=== PATIENT | male | born 1955 | race Two or more races ===

== ENCOUNTER 2017-09-19 15:13 | Inpatient (IN) | payer BC ==
--- NOTE | 2017-09-19 15:52 | C.PDOC ---
History Of Present Illness 62 year old male with PMHx of diabetes presents to the ER, referred by PMD for bilateral foot infections worsening since 8 days ago. Patient states he walked on the pavement barefoot, subsequently burning the bottom of both feet. He describes persistent open wounds to both feet. Now reports new-onset redness over the top of the feet and ascending the lower legs, right greater than left. Otherwise denies fever, chills, changes in sensation, weakness, nausea, or vomiting. Time Seen by Provider: 09/19/17 15:42 Chief Complaint (Nursing): Lower Extremity Problem/Injury History Per: Patient History/Exam Limitations: no limitations Onset/Duration Of Symptoms: Days Current Symptoms Are (Timing): Still Present Past Medical History Reviewed: Historical Data, Nursing Documentation, Vital Signs Vital Signs: Last Vital Signs Temp 98.0 F 09/19/17 15:21 Pulse 100 H 09/19/17 15:21 Resp 18 09/19/17 15:21 BP Pulse Ox 100 09/19/17 16:31 - Medical History PMH: Diabetes, Chronic Kidney Disease (on dialysis MWF) Surgical History: CABG, Pacemaker Family History: States: No Known Family Hx - Social History Hx Alcohol Use: No Hx Substance Use: No Review Of Systems Except As Marked, All Systems Reviewed And Found Negative. Constitutional: Negative for: Fever, Chills Gastrointestinal: Negative for: Nausea, Vomiting Musculoskeletal: Positive for: Foot Pain, Other (redness to b/l lower legs and feet) Skin: Positive for: Lesions (open wounds to b/l feet) Neurological: Negative for: Weakness, Numbness Physical Exam - Physical Exam Appears: Non-toxic, No Acute Distress Skin: Warm, Dry Head: Atraumatic, Normacephalic Eye(s): bilateral: Normal Inspection, PERRL, EOMI Nose: Normal Oral Mucosa: Moist Neck: Normal ROM, Supple Chest: Symmetrical, No Deformity Cardiovascular: Rhythm Regular, No Murmur Respiratory: Normal Breath Sounds, No Accessory Muscle Use, Other (NARD) Gastrointestinal/Abdominal: Soft, No Tenderness Back: Normal Inspection Extremity: Normal ROM, Capillary Refill (< 2sec), Other (ascending cellulitis with lymphangitis to bilateral lower legs, right > left; soles of bilateral feet with open wounds and scabs) Pulses: Left Dorsalis Pedis: Normal, Right Dorsalis Pedis: Normal Neurological/Psych: Oriented x3, Normal Speech, Normal Cranial Nerves, Normal Motor, Normal Sensation ED Course And Treatment - Laboratory Results Result Diagrams: 09/19/17 16:01 09/19/17 16:01 ECG: Interpreted By Me, Viewed By Me ECG Rhythm: Sinus Rhythm, R BBB, PVC Rate From EC O2 Sat by Pulse Oximetry: 100 (RA) Pulse Ox Interpretation: Normal - Other Rad B/L FOOT X-RAY X-Ray: Viewed By Me, Read By Radiologist Interpretation: Accession No. : [id number]. Patient Name / ID : JENNIFER Waldron / [id number]. Exam Date : 09/19/2017 16:25:02 ( Approved ). Study Comment : Sex / Age : M / 62Y. Creator : Guille Fuentes MD. Dictator : Guille Fuentes MD. Assistant Signal Maintainer : Senior Grants Officer : Guille Fuentes MD. Approver2 : Report Date : 09/19/2017 16:54:30. My Comment : . Date of service: 09/19/2017. PROCEDURE: Bilateral Feet Radiographs. HISTORY: CELLULITIS RO FA. COMPARISON: None. FINDINGS: BONES: Right Foot: No acute fracture. Hallux valgus deformity. Left Foot: No acute fracture. Hallux valgus deformity. JOINTS: Right Foot: Unremarkable. Left Foot: Unremarkable. SOFT TISSUES: Right Foot: Trace Achilles enthesophyte. Left Foot: Trace Achilles enthesophyte. OTHER FINDINGS: None. IMPRESSION: No demonstrated fracture or dislocation. CHEST X-RAY X-Ray: Viewed By Me, Read By Radiologist Interpretation: Accession No. : [id number]. Patient Name / ID : JENNIFER ROSAS / [id number]. Exam Date : 09/19/2017 16:30:51 ( Approved ). Study Comment : Sex / Age : M / 62Y. Creator : Guille Fuentes MD. Dictator : Guille Fuentes MD. Assistant Signal Maintainer : Senior Grants Officer : Guille Fuentes MD. Approver2 : Report Date : 09/19/2017 16:55:25. My Comment : . Date of service: 09/19/2017. PROCEDURE: CHEST RADIOGRAPH, 1 VIEW. HISTORY: MED CLEAR. COMPARISON: None available. FINDINGS: LUNGS: Clear. PLEURA: No pneumothorax or pleural fluid seen. CARDIOVASCULAR: Left subclavian access pacemaker. Prior sternotomy with sternal wires and surgical clips redemonstrated. Atherosclerotic aortic calcifications. Cardiomediastinal silhouette at the upper limits of normal in size. OSSEOUS STRUCTURES: Degenerative changes no. VISUALIZED UPPER ABDOMEN: Normal. OTHER FINDINGS: Right internal jugular access tunneled hemodialysis catheter with tips in the upper right atrium. IMPRESSION: No active disease. Progress - Re-Evaluation Re-evaluation Note: 09/19/17 16:01 Discussed w/ podiatry resident, who will evaluate patient in the ER. 09/19/17 16:30 D/W DR Nkechi RAM C/F PMD WILL ADMIT - Data Reviewed Data Reviewed: Lab, Diagnostic imaging, EKG, Old records Medical Decision Making Medical Decision Making: Initial Impression: Bilateral cellulitis Time: 15:52 Initial Plan: --EKG --VBG --Blood work --Chest x-ray --B/L Foot x-ray --IV Vanco and Ancef --30mg IV Toradol Disposition Counseled Patient/Family Regarding: Studies Performed, Diagnosis - Disposition Disposition: HOSPITALIZED Disposition Time: 16:30 Condition: STABLE - POA Present On Arrival: Poor Glycemic Control - Clinical Impression Clinical Impression: Burn, foot, second degree, Cellulitis - Scribe Statement The provider has reviewed the documentation as recorded by the Scribe (Arianne Kaiser) Provider Attestation: All medical record entries made by the Scribe were at my direction and personally dictated by me. I have reviewed the chart and agree that the record accurately reflects my personal performance of the history, physical exam, medical decision making, and the department course for this patient. I have also personally directed, reviewed, and agree with the discharge instructions and disposition. Decision To Admit - Pt Status Changed To: Hospital Disposition Of: Inpatient - Admit Certification Admit to Inpatient:: After my assessment, the patient will require hospitalization for at least two midnights. This is because of the severity of symptoms shown, intensity of services needed, and/or the medical risk in this patient being treated as an outpatient. - InPatient: Physician Admission Certification: I certify that this patient requires 2 or more midnights of care for the following reason:: SEE NOTE - . Bed Request Type: Regular Admitting Physician: Miguel Ram Patient Diagnosis: Burn, foot, second degree, Cellulitis
[2017-09-19] MEDS ORDERED: Vancomycin 1 gm/NS 200 ml 1 GM/200 ML BAG IVPB STA (16:10)
[2017-09-19 16:12] LABS: EOS # 0.1 K/uL (0.0-0.7); HEMOGLOBIN 11.5 g/dL (12.0-18.0); MONO # 0.6 K/uL (0.0-0.8); RBC 3.94 Mil/uL (4.40-5.90)
[2017-09-19 16:18] LABS: BASO % 0.4 % (0.0-2.0); EOS % 1.5 % (0.0-4.0); LYMPH # 0.8 K/uL (1.0-4.3); LYMPH % 9.5 % (20.0-40.0); MEAN CELL VOLUME 85.4 fL (80.0-94.0); MEAN CORPUSCULAR HEMOGLOBIN 29.3 pg (27.0-31.0); MEAN CORPUSCULAR HGB CONC 34.3 g/dL (33.0-37.0); MEAN PLATELET VOLUME 8.3 fL (7.2-11.7); MONO % 7.7 % (0.0-10.0); NEUT # 6.5 K/uL (1.8-7.0); NEUT % 80.9 % (50.0-75.0); NRBC % 0.2 % (0.0-2.0); RED CELL DISTRIBUTION WIDTH 15.8 % (11.5-14.5); WHITE BLOOD COUNT 8.1 K/uL (4.8-10.8)
[2017-09-19] MEDS ORDERED: ceFAZolin IV 1 gm in Dextrose 1 GM/50 ML BAG IVPB STA (16:20)
[2017-09-19 16:21] LABS: PLATELET COUNT 124 K/uL (130-400)
[2017-09-19 16:24] LABS: VENOUS BLOOD GAS BASE EXCESS 6.2 mmol/L (0.0-2.0); VENOUS BLOOD GAS PCO2 42 mmHg (40-60); VENOUS BLOOD GAS PO2 34 mm/Hg (30-55); VENOUS BLOOD PH 7.47 (7.32-7.43)
--- NOTE | 2017-09-19 16:56 | RAD ---
Date of service: 09/19/2017 PROCEDURE: Bilateral Feet Radiographs. HISTORY: CELLULITIS RO FA COMPARISON: None. FINDINGS: BONES: Right Foot: No acute fracture. Hallux valgus deformity. Left Foot: No acute fracture. Hallux valgus deformity. JOINTS: Right Foot: Unremarkable. Left Foot: Unremarkable. SOFT TISSUES: Right Foot: Trace Achilles enthesophyte. Left Foot: Trace Achilles enthesophyte. OTHER FINDINGS: None. IMPRESSION: No demonstrated fracture or dislocation.
--- NOTE | 2017-09-19 16:57 | RAD ---
Date of service: 09/19/2017 PROCEDURE: CHEST RADIOGRAPH, 1 VIEW HISTORY: MED CLEAR COMPARISON: None available. FINDINGS: LUNGS: Clear. PLEURA: No pneumothorax or pleural fluid seen. CARDIOVASCULAR: Left subclavian access pacemaker. Prior sternotomy with sternal wires and surgical clips redemonstrated. Atherosclerotic aortic calcifications. Cardiomediastinal silhouette at the upper limits of normal in size. OSSEOUS STRUCTURES: Degenerative changes no. VISUALIZED UPPER ABDOMEN: Normal. OTHER FINDINGS: Right internal jugular access tunneled hemodialysis catheter with tips in the upper right atrium. IMPRESSION: No active disease.
[2017-09-19 17:22] LABS: EOSINOPHIL 1 % (0-4); LYMPHOCYTE 10 % (20-40); MONOCYTE 4 % (0-10); NEUTROPHIL 85 % (50-75); PLATELET ESTIMATE SLIGHTLY DECREASED (NORMAL); TOTAL CELLS COUNTED 100
[2017-09-19 17:25] LABS: ANISOCYTOSIS SLIGHT; HYPOCHROMIC SLIGHT; POIKILOCYTOSIS SLIGHT
--- NOTE | 2017-09-19 17:30 | CP.PCM.CON ---
History of Present Illness - History of Present Illness History of Present Illness: Podiatry Consult Note: Dr. Pierce 62 year old male with PMHx of diabetes was seen and evaluated for bilateral foot infections worsening since 8 days ago after walking on hot pavement barefoot and obtaining guerrero to the bottom of both feet. Patient is seen with at bedside. Patient states that he had been dressing the wound with bacitracin and keeping them covered since the injury. Reports that he noticed his leg (R>L) getting red and extending towards the knee which started overnight. Patient denies of any drainage or malodor from the feet. Patient denies of having recent F/N/V/C/SOB/CP/headache. Patient denies of any pain to bilateral lower extremities. Patient denies of any other pedal complains at this time. Denies of any other medical treatment prior to coming to the ED. PMHx: DM, HTN, hyperlipidemia, CKD PSHx: Pacemaker, bypass Allergies: N.K.D.A SHx: 1/3 a pack a day smoking, denies EtOH or illicit drug usage Review of Systems - Constitutional Constitutional: As Per HPI Past Patient History - Past Social History Smoking Status: Heavy Smoker > 10 Cigarettes Daily - CARDIAC Hx Pacemaker: Yes - RENAL Hx Chronic Kidney Disease: Yes (on dialysis MWF) - ENDOCRINE/METABOLIC Hx Diabetes Mellitus Type 2: Yes - PSYCHIATRIC Hx Substance Use: No - SURGICAL HISTORY Hx Coronary Artery Bypass Graft: Yes - ANESTHESIA Hx Anesthesia: Yes Hx Anesthesia Reactions: No Meds Allergies/Adverse Reactions: Allergies Allergy/AdvReac Type Severity Reaction Status Date / Time No Known Allergies Allergy Unverified 09/19/17 15:24 - Medications Medications: Current Medications Vancomycin/Sodium Chloride (Vancomycin 1 Gm/Ns 200 Ml) 1 gm in 200 mls @ 133.333 mls/hr IVPB STAT STA PRN Reason: Protocol Stop: 09/19/17 17:39 Last Admin: 09/19/17 17:00 Dose: 133.333 mls/hr Physical Exam - Constitutional Appears: Well, Non-toxic, No Acute Distress - Extremities Exam Additional comments: Bilateral LE exam VASC: DP/PT pulses are very faintly palpable 1/4, Cap refill time: < 3 sec to all digits, Temp gradient: warm to fairly warm from proximal to distal (R>L), no pitting or non-pitting edema noted DERM: Superficial epidermal lysis with healthy grannular tissue on the wound bed noted on the plantar forefoot at the ball of the foot, erythema which extends from the dorsum of the foot proximally towards the knee joint with streaks (R>L), no active drainage, no malodor, no probe to bone, no tunneling or tracking NEURO: Protective sensation mildly diminished ORTHO: no pain on palpation of the wounds - Neurological Exam Neurological exam: Alert, Oriented x3 - Psychiatric Exam Psychiatric exam: Normal Affect, Normal Mood Results - Vital Signs Recent Vital Signs: Last Vital Signs Temp 98.0 F 09/19/17 15:21 Pulse 100 H 09/19/17 15:21 Resp 18 09/19/17 15:21 BP Pulse Ox 100 09/19/17 17:09 - Labs Result Diagrams: 09/19/17 16:01 09/19/17 16:01 Labs: Laboratory Results - last 24 hr 09/19/17 09/19/17 09/19/17 16:01 16:01 16:20 WBC 8.1 RBC 3.94 L Hgb 11.5 L Hct 33.7 L MCV 85.4 MCH 29.3 MCHC 34.3 RDW 15.8 H Plt Count 124 L MPV 8.3 Neut % (Auto) 80.9 H Lymph % (Auto) 9.5 L [place] % (Auto) 7.7 Eos % (Auto) 1.5 Baso % (Auto) 0.4 Neut # (Auto) 6.5 Lymph # (Auto) 0.8 L [place] # (Auto) 0.6 Eos # (Auto) 0.1 Baso # (Auto) 0.0 pO2 34 VBG pH 7.47 H VBG pCO2 42 VBG HCO3 29.0 VBG Total CO2 31.9 H VBG O2 Sat (Calc) 78.3 H VBG Base Excess 6.2 H VBG Potassium 3.4 L Glucose 236 H Lactate 1.8 FiO2 21.0 Sodium 139 137.0 Potassium 3.6 Chloride 96 L 102.0 Carbon Dioxide 29 Anion Gap 18 BUN 17 Creatinine 2.5 H Est GFR ( Amer) 32 Est GFR (Non-Af Amer) 26 Random Glucose 247 H Calcium 9.0 Venous Blood Potassium 3.4 L Assessment & Plan - Assessment and Plan (Free Text) Assessment: 62 year old male was evaluated for 1). plantar forefoot wound secondary to second degree burn 2). Cellulitis Plan: Patient seen and evaluated Discussed patient in details with attending Dr. Pierce Labs, vitals and charts reviewed - afebrile, no leukocytosis X-rays of the foot reviewed - no acute concern for OM Burn wounds cleaned with saline and cultures taken from left and right Dressing applied using DSD IV abx while in ED Silvadine ordered ID consult - Dr. Frazier Podiatry to perform local wound care Thank you for the podiatry consult and allowing to take part in patient care Podiatry to follow patient while in-house - Date & Time Date: 09/19/17 Time: 17:42
--- NOTE | 2017-09-19 18:15 | CP.PCM.HP ---
History of Present Illness - History of Present Illness History of Present Illness: CC "burned soles of feet, red and painful" HPI: Patient is a 62 year old male with history of diabetes, chronic kidney disease - on hemodialysis MWF, coronary artery disease, hx of HI - 19 years ago at age 43 who presents for redness and pain at the soles of his feet after he burned them while walking on hot pavement at [facility] 8 days ago. He states he was only on the hot pavement for a few steps from the pool to the umbrella. He state that he didn't experience any pain immediately after, however experienced some burning 5 to 6 hours later. Fabiola at bedside stated she saw white skin hanging loose, which she removed and treated with Bacitracin and hydrogen peroxide. Stated that his pain worsened to a 12/10 yesterday and he woke up in the middle of his sleep from the pain. Patient denies prior issues with feet, prior infections on feet. He currently stated that his feet feel painful with redness going up both his legs. Patient received Vancomycin 1g IV while in ED. He denies fevers, chills, diaphoresis, weakness, headache, dizziness, lightheadedness, changes in vision, changes in hearing, sore throat, dysphagia, chest pain, palpitations, shortness of breath, cough, abdominal pain , nausea, vomiting, diarrhea, constipation, dysuria, back pain, recent travel, recent sickness, sick contacts, changes in weight or appetite. PMH: DM, CKD on HD (MWF), CAD, hx of HI 19 years ago PSH: permacath, pacemaker, CABG Family hx: Brother of HI at age 35. Brother of hyperlipidemia and HI at age 60. Mother has history of DM and cardiac disease. Father hx of HI - in 80s. No history of stroke or cancer in family Social hx: Smokes 1/3 ppd x47 years (From age [age]). Denies hx of ETOH or illict drug use. Currently lives with and son. 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 Ortiz Nephrology: Dr. Gibson Security Researcher: Dr. Disla Pulmonology: Dr. Enrique Code status: full code Healthcare proxy: Fabiola [phone] Present on Admission - Present on Admission Any Indicators Present on Admission: No Review of Systems - Constitutional Constitutional: absent: Chills, Fatigue, Fever - EENT Eyes: absent: Change in Vision, Loss of Vision - Cardiovascular Cardiovascular: absent: Chest Pain, Dyspnea, Palpitations - Respiratory Respiratory: absent: Cough, Dyspnea - Gastrointestinal Gastrointestinal: absent: Abdominal Pain, Constipation, Diarrhea, Nausea - Musculoskeletal Musculoskeletal: absent: Back Pain, Neck Pain - Neurological Neurological: absent: Abnormal Movements, Dizziness, Paresthesias Past Patient History - Past Social History Smoking Status: Heavy Smoker > 10 Cigarettes Daily - CARDIAC Hx Pacemaker: Yes - RENAL Hx Chronic Kidney Disease: Yes (on dialysis MWF) - ENDOCRINE/METABOLIC Hx Diabetes Mellitus Type 2: Yes - PSYCHIATRIC Hx Substance Use: No - SURGICAL HISTORY Hx Coronary Artery Bypass Graft: Yes - ANESTHESIA Hx Anesthesia: Yes Hx Anesthesia Reactions: No Meds Allergies/Adverse Reactions: Allergies Allergy/AdvReac Type Severity Reaction Status Date / Time No Known Allergies Allergy Unverified 09/19/17 15:24 Physical Exam - Constitutional Appears: Well, No Acute Distress - Head Exam Head Exam: ATRAUMATIC, NORMOCEPHALIC - Eye Exam Eye Exam: EOMI - ENT Exam ENT Exam: Mucous Membranes Moist - Neck Exam Neck exam: Positive for: Full Rom. Negative for: Tenderness, Thyromegaly - Respiratory Exam Respiratory Exam: Clear to Auscultation Bilateral, NORMAL BREATHING PATTERN. absent: Rales, Rhonchi, Wheezes Additional comments: right anterior chest permacath - Cardiovascular Exam Cardiovascular Exam: REGULAR RHYTHM, +S1, +S2 Additional comments: Pacemaker - GI/Abdominal Exam GI & Abdominal Exam: Normal Bowel Sounds, Soft. absent: Distended, Firm, Guarding, Rebound, Tenderness - Extremities Exam Extremities exam: Positive for: tenderness, pedal pulses present. Negative for : calf tenderness, pedal edema Additional comments: Bilateral lower extremity erythema, warmth and tenderness. Erythema does not resolve with leg elevation. Top layer of skin with subcutaneous fat on plantar aspect of feet bilaterally extending from metatarsal head to half of the distance of metatarsal bilaterally. On left lower extremity: erythematous streaking extending from dorsum of left foot to medial malleolus On right lower extremity: erythematous streaking extending from dorsum to mid anterior tibia Outlined in black marker Pedal pulses present. Decreased sensation of bilateral 1st and 2nd toes bilaterally - Neurological Exam Neurological exam: Alert, CN II-XII Intact, Oriented x3 Results - Vital Signs Recent Vital Signs: Last Vital Signs Temp 98.0 F 09/19/17 15:21 Pulse 100 H 09/19/17 15:21 Resp 18 09/19/17 15:21 BP Pulse Ox 100 09/19/17 17:09 - Labs Result Diagrams: 09/19/17 16:01 09/19/17 16:01 Labs: Laboratory Results - last 24 hr 09/19/17 09/19/17 09/19/17 16:01 16:01 16:20 WBC 8.1 RBC 3.94 L Hgb 11.5 L Hct 33.7 L MCV 85.4 MCH 29.3 MCHC 34.3 RDW 15.8 H Plt Count 124 L MPV 8.3 Neut % (Auto) 80.9 H Lymph % (Auto) 9.5 L [place] % (Auto) 7.7 Eos % (Auto) 1.5 Baso % (Auto) 0.4 Neut # (Auto) 6.5 Lymph # (Auto) 0.8 L [place] # (Auto) 0.6 Eos # (Auto) 0.1 Baso # (Auto) 0.0 Neutrophils % (Manual) 85 H Lymphocytes % (Manual) 10 L Monocytes % (Manual) 4 Eosinophils % (Manual) 1 Platelet Estimate Slightly decreased L Hypochromasia (manual) Slight Poikilocytosis (manual Slight Anisocytosis (manual) Slight pO2 34 VBG pH 7.47 H VBG pCO2 42 VBG HCO3 29.0 VBG Total CO2 31.9 H VBG O2 Sat (Calc) 78.3 H VBG Base Excess 6.2 H VBG Potassium 3.4 L Glucose 236 H Lactate 1.8 FiO2 21.0 Sodium 139 137.0 Potassium 3.6 Chloride 96 L 102.0 Carbon Dioxide 29 Anion Gap 18 BUN 17 Creatinine 2.5 H Est GFR ( Amer) 32 Est GFR (Non-Af Amer) 26 Random Glucose 247 H Calcium 9.0 Venous Blood Potassium 3.4 L Assessment & Plan - Assessment and Plan (Free Text) Plan: Assessment/plan Bilateral lower leg cellulitis IN ED: Vancomycin 1g IV, Ancef 1g IV Follow up on blood cultures ID Dr. Frazier consulted, help appreciated Podiatry Dr. Pierce consulted, help appreciated Ceftriaxone 1g IV starting 09/20/17 Bilateral feet pedal surface guerrero, 3rd degree Consider silver sulfadiazine Wound care nurse consult Hx of CAD s/p CABG and pacemaker Crestor 20mg PO daily Coreg 3.125mg PO BID ASA 81mg PO daily Plavix 75mg PO daily Entresto ESRD on HD via right chest permacath HD at [facility] Calcium acetate [address] uQevedo consulted, help appreciated Hx of DM, type 2 Tradjenta 5mg PO daily ( asked to bring in) Glipizide 10mg PO daily Hypoglycemic protocol Low dose ISS Follow up: A1C Hx of HTN Coreg 3.125mg PO BID Anemia likely secondary to chronic disease, ESRD Monitor H/H Hx of gout Uloric 40mg PO once daily Hx of depression Paroxetine 10mg PO once daily BPH Flomax 0.4mg PO daily Prophylaxis Heparin 5000 units SC Q12 SCDs contraindicated secondary to cellulitis Florastor 250mg PO twice daily Heart healthy 2g Na low carb diet Camacho Aguilar, PGYI Case discussed with Dr. Miguel Ram
[2017-09-19] MEDS ORDERED: Dextrose 50% SYRINGE Inj (50 ml) IV PRN (20:29)
[2017-09-19] MEDS ORDERED: Glucagon Recombinant 1 mg Inj IM PRN (20:29)
[2017-09-19] MEDS: (Novolin R) Insulin Human Regular 100 units/ml vial SC SCH (21:55)
--- NOTE | 2017-09-20 01:49 | CP.PCM.CON ---
History of Present Illness - History of Present Illness History of Present Illness: 62 year old Male pt consulted to our service for evaluation of second degree guerrero to feet bilaterally. Pt states he was walking barefoot on hot pavement on 09/11 when he began to feel burning pain to the plantar aspect of his feet bilaterally. Pt continues to state that the pain has been constant in nature and radiates into the anterior leg bilaterally. Pt states the pain is worse with movement and better with rest and elevation. Pt denies any SOB, chest pain , N/V/D, or any other sx at this time. +Doppler signals PT/DP b/l. PMH:ESRD, DM, CAD, HTN PSH: 5 coronary stents, femoral stents bilaterally Medications: Ceftriaxone, Plavix, ASA Fam Hx: CAD maternal and paternal Social: smokes 6 cigarretes/day, denies alcohol, denies ellicit drug use Allergies: NKDA Review of Systems - Review of Systems Review of Systems: 12 pt ROS unremarkable, except as stated in HPI Past Patient History - Past Medical History & Family History Past Medical History?: Yes - Past Social History Smoking Status: Never Smoked - CARDIAC Hx Pacemaker: Yes - RENAL Hx Chronic Kidney Disease: Yes (on dialysis MWF) - ENDOCRINE/METABOLIC Hx Diabetes Mellitus Type 2: Yes - MUSCULOSKELETAL/RHEUMATOLOGICAL Hx Falls: No - PSYCHIATRIC Hx Substance Use: No - SURGICAL HISTORY Hx Coronary Artery Bypass Graft: Yes - ANESTHESIA Hx Anesthesia: Yes Hx Anesthesia Reactions: No Meds Allergies/Adverse Reactions: Allergies Allergy/AdvReac Type Severity Reaction Status Date / Time morphine AdvReac FATIGUE Verified 09/19/17 23:39 - Medications Medications: Current Medications Aspirin (Aspirin Chewable) 81 mg PO DAILY REPLACED BY [facility] Calcium Acetate (Phoslo) 667 mg PO BIDCC [facility] Carvedilol (Coreg) 3.125 mg PO BID [facility] Clopidogrel Bisulfate (Plavix) 75 mg PO DAILY REPLACED BY [facility] Dextrose (Dextrose 50% Inj) 0 ml IV STAT PRN; Protocol PRN Reason: Hypoglycemia Protocol Dextrose (Glutose 15) 0 gm PO ONCE PRN; Protocol PRN Reason: Hypoglycemia Protocol Glipizide (Glucotrol) 10 mg PO ACB REPLACED BY [facility] Glucagon (Glucagen Diagnostic Kit) 0 mg IM STAT PRN; Protocol PRN Reason: Hypoglycemia Protocol Heparin Sodium (Porcine) (Heparin) 5,000 units SC Q12 REPLACED BY [facility] Last Admin: 09/19/17 21:49 Dose: 5,000 units Ceftriaxone Sodium 1 gm/ (Sodium Chloride) 100 mls @ 100 mls/hr IVPB Q24H [facility] PRN Reason: Protocol Dextrose (Dextrose 5% In Water 1000 Ml) 1,000 mls @ 0 mls/hr IV .Q0M PRN; Protocol; Per Protocol PRN Reason: Hypoglycemia Protocol Insulin Human Regular (Novolin R) 0 unit SC ACHS [facility] PRN Reason: Protocol Last Admin: 09/19/17 21:55 Dose: Not Given Paroxetine HCl (Paxil) 10 mg PO DAILY [facility] Rosuvastatin Calcium (Crestor) 20 mg PO HS [facility] Last Admin: 09/19/17 21:49 Dose: 20 mg Saccharomyces Boulardii (Florastor) 250 mg PO BID [facility] Sacubitril/Valsartan (Entresto 24 Mg-26 Mg) 1 tab PO BID [facility] Silver Sulfadiazine (Silvadene 1% 20 Gm) 0 ea TOP DAILY [facility] Tamsulosin HCl (Flomax) 0.4 mg PO DAILY [facility] Physical Exam - Constitutional Appears: No Acute Distress - Head Exam Head Exam: NORMOCEPHALIC - Eye Exam Eye Exam: EOMI, Normal appearance - ENT Exam ENT Exam: Mucous Membranes Moist - Respiratory Exam Respiratory Exam: NORMAL BREATHING PATTERN - Cardiovascular Exam Cardiovascular Exam: +S1, +S2 - GI/Abdominal Exam GI & Abdominal Exam: Soft - Extremities Exam Additional comments: the plantar surfaces of feet bilaterally appear to have sustained second degree guerrero. No necrotic tissue noted. first degree guerrero present along anterior aspects of lower legs bilaterally. Calves are tender to touch. Pedal and posterior tibial pulses assessed via Doppler US and are normal. - Neurological Exam Neurological exam: Alert, Oriented x3 - Psychiatric Exam Psychiatric exam: Normal Mood - Skin Skin Exam: Dry, Intact, Warm Results - Vital Signs Recent Vital Signs: Last Vital Signs Temp 98.3 F 09/19/17 23:43 Pulse 77 09/19/17 23:43 Resp 20 09/19/17 23:43 BP 101/60 09/19/17 23:43 Pulse Ox 96 09/19/17 23:43 - Labs Result Diagrams: 09/19/17 16:01 09/19/17 16:01 Labs: Laboratory Results - last 24 hr 09/19/17 09/19/17 09/19/17 16:01 16:01 16:20 WBC 8.1 RBC 3.94 L Hgb 11.5 L Hct 33.7 L MCV 85.4 MCH 29.3 MCHC 34.3 RDW 15.8 H Plt Count 124 L MPV 8.3 Neut % (Auto) 80.9 H Lymph % (Auto) 9.5 L [place] % (Auto) 7.7 Eos % (Auto) 1.5 Baso % (Auto) 0.4 Neut # (Auto) 6.5 Lymph # (Auto) 0.8 L [place] # (Auto) 0.6 Eos # (Auto) 0.1 Baso # (Auto) 0.0 Neutrophils % (Manual) 85 H Lymphocytes % (Manual) 10 L Monocytes % (Manual) 4 Eosinophils % (Manual) 1 Platelet Estimate Slightly decreased L Hypochromasia (manual) Slight Poikilocytosis (manual Slight Anisocytosis (manual) Slight pO2 34 VBG pH 7.47 H VBG pCO2 42 VBG HCO3 29.0 VBG Total CO2 31.9 H VBG O2 Sat (Calc) 78.3 H VBG Base Excess 6.2 H VBG Potassium 3.4 L Glucose 236 H Lactate 1.8 FiO2 21.0 Sodium 139 137.0 Potassium 3.6 Chloride 96 L 102.0 Carbon Dioxide 29 Anion Gap 18 BUN 17 Creatinine 2.5 H Est GFR ( Amer) 32 Est GFR (Non-Af Amer) 26 POC Glucose (mg/dL) Random Glucose 247 H Calcium 9.0 Venous Blood Potassium 3.4 L 09/19/17 21:16 WBC RBC Hgb Hct MCV MCH MCHC RDW Plt Count MPV Neut % (Auto) Lymph % (Auto) [place] % (Auto) Eos % (Auto) Baso % (Auto) Neut # (Auto) Lymph # (Auto) [place] # (Auto) Eos # (Auto) Baso # (Auto) Neutrophils % (Manual) Lymphocytes % (Manual) Monocytes % (Manual) Eosinophils % (Manual) Platelet Estimate Hypochromasia (manual) Poikilocytosis (manual Anisocytosis (manual) pO2 VBG pH VBG pCO2 VBG HCO3 VBG Total CO2 VBG O2 Sat (Calc) VBG Base Excess VBG Potassium Glucose Lactate FiO2 Sodium Potassium Chloride Carbon Dioxide Anion Gap BUN Creatinine Est GFR ( Amer) Est GFR (Non-Af Amer) POC Glucose (mg/dL) 101 Random Glucose Calcium Venous Blood Potassium Assessment & Plan - Assessment and Plan (Free Text) Assessment: 62M with lower ext cellulitis and plantar 2nd degree guerrero Plan: No acute vascular surgical intervention required at this present time Recommend silvadene application to affected areas IV ABx as per ID Local wound care was per podiatry Medical management as per primary team Further recs per Dr. David Villalobos PGY3
--- NOTE | 2017-09-20 07:06 | CP.PCM.PN ---
Subjective - Date & Time of Evaluation Date of Evaluation: 09/20/17 Time of Evaluation: 07:06 - Subjective Subjective: Progress Note for Hospitalist service Patient was seen and examined at bedside. He denies fevers, chills, chest pain, shortness of breath, abdominal pain, nausea, vomiting, diarrhea. He states that the pain in his feet has not worsened. He is resting comfortably in bed. States he has been eating and drinking well. Objective - Vital Signs/Intake and Output Vital Signs (last 24 hours): Temp Pulse Resp BP Pulse Ox 98.3 F 77 20 101/60 96 09/19/17 23:43 09/19/17 23:43 09/19/17 23:43 09/19/17 23:43 09/19/17 23:43 Intake and Output: 09/20/17 09/20/17 06:59 18:59 Intake Total 200 Balance 200 - Medications Medications: Current Medications Aspirin (Aspirin Chewable) 81 mg PO DAILY [facility] Calcium Acetate (Phoslo) 667 mg PO BIDCC [facility] Carvedilol (Coreg) 3.125 mg PO BID [facility] Clopidogrel Bisulfate (Plavix) 75 mg PO DAILY [facility] Dextrose (Dextrose 50% Inj) 0 ml IV STAT PRN; Protocol PRN Reason: Hypoglycemia Protocol Dextrose (Glutose 15) 0 gm PO ONCE PRN; Protocol PRN Reason: Hypoglycemia Protocol Glipizide (Glucotrol) 10 mg PO ACB [facility] Glucagon (Glucagen Diagnostic Kit) 0 mg IM STAT PRN; Protocol PRN Reason: Hypoglycemia Protocol Heparin Sodium (Porcine) (Heparin) 5,000 units SC Q12 [facility] Last Admin: 09/19/17 21:49 Dose: 5,000 units Ceftriaxone Sodium 1 gm/ (Sodium Chloride) 100 mls @ 100 mls/hr IVPB Q24H [facility] PRN Reason: Protocol Dextrose (Dextrose 5% In Water 1000 Ml) 1,000 mls @ 0 mls/hr IV .Q0M PRN; Protocol; Per Protocol PRN Reason: Hypoglycemia Protocol Insulin Human Regular (Novolin R) 0 unit SC ACHS [facility] PRN Reason: Protocol Last Admin: 09/19/17 21:55 Dose: Not Given Paroxetine HCl (Paxil) 10 mg PO DAILY [facility] Rosuvastatin Calcium (Crestor) 20 mg PO HS [facility] Last Admin: 09/19/17 21:49 Dose: 20 mg Saccharomyces Boulardii (Florastor) 250 mg PO BID [facility] Sacubitril/Valsartan (Entresto 24 Mg-26 Mg) 1 tab PO BID [facility] Silver Sulfadiazine (Silvadene 1% 20 Gm) 0 ea TOP DAILY [facility] Tamsulosin HCl (Flomax) 0.4 mg PO DAILY [facility] - Labs Labs: 09/19/17 16:01 09/19/17 16:01 - Constitutional Appears: Well, No Acute Distress - Head Exam Head Exam: ATRAUMATIC, NORMOCEPHALIC - Eye Exam Eye Exam: EOMI - ENT Exam ENT Exam: Mucous Membranes Moist - Neck Exam Neck Exam: absent: Tenderness, Thyromegaly - Respiratory Exam Respiratory Exam: Clear to Ausculation Bilateral, NORMAL BREATHING PATTERN. absent: Rales, Rhonchi, Wheezes Additional comments: Right anterior chest portacath - Cardiovascular Exam Cardiovascular Exam: REGULAR RHYTHM, +S1, +S2 Additional comments: Pacemaker - GI/Abdominal Exam GI & Abdominal Exam: Soft, Normal Bowel Sounds. absent: Distended, Guarding, Rigid, Tenderness - Extremities Exam Extremities Exam: Tenderness. absent: Normal Inspection Additional comments: Bilateral lower extremity erythema, warmth and tenderness. Top layer of skin with subcutaneous fat on plantar aspect of feet bilaterally extending from metatarsal head to half of the distance of metatarsal bilaterally. On left lower extremity: erythematous streaking extending from dorsum of left foot to medial malleolus On right lower extremity: erythematous streaking extending from dorsum to mid anterior tibia Erythematous streaking not extending past outline, with decrease in erythema noted today. Pedal pulses present. Decreased sensation of left 1st toe. - Neurological Exam Neurological Exam: Alert, Awake, CN II-XII Intact, Oriented x3 - Psychiatric Exam Psychiatric exam: Normal Affect, Normal Mood Assessment and Plan - Assessment and Plan (Free Text) Plan: Assessment/plan Bilateral lower leg cellulitis IN ED: Vancomycin 1g IV, Ancef 1g IV Follow up on blood cultures ID Dr. Frazier consulted, help appreciated Podiatry Dr. Pierce consulted, help appreciated. As per podiatry, no acute concern for osteomyelitis. Burn wound cleaned and cultures taken from wound. Silvadene applied. Ceftriaxone 1g IV starting 09/20/17 Vancomycin 1g IV MWF starting 09/21/17 Follow up on blood cultures and wound cultures Preliminary read on arterial duplex doppler : Left ANUSHA 0.61 Right ANUSHA 0.55 Bilateral feet pedal surface guerrero, 3rd degree Consider silver sulfadiazine Wound care nurse Maverick consulted, help appreciated Patient seen by Wound care nurse who agreed with silvadene treatment and Xerofoam dressing changes twice daily. Hx of CAD s/p CABG and pacemaker Crestor 20mg PO daily Coreg 3.125mg PO BID ASA 81mg PO daily Plavix 75mg PO daily Entresto ESRD on HD via right chest permacath HD at [facility] Calcium acetate [address] Quevedo consulted, help appreciated Patient is scheduled for AV fistula placement on 10/09 Hx of DM, type 2 Tradjenta 5mg PO daily ( asked to bring in) Glipizide 10mg PO daily Hypoglycemic protocol Low dose ISS Follow up: A1C Hx of HTN Coreg 3.125mg PO BID Anemia likely secondary to chronic disease, ESRD Monitor H/H Hx of gout Uloric 40mg PO once daily (asked to bring in) Hx of depression Paroxetine 10mg PO once daily BPH Flomax 0.4mg PO daily Prophylaxis Heparin 5000 units SC Q12 SCDs contraindicated secondary to cellulitis Florastor 250mg PO twice daily Heart healthy 2g Na low carb diet Camacho Aguilar, PGYI Case discussed with Dr. Miguel Ram
[2017-09-20 07:56] LABS: BASO % 0.6 % (0.0-2.0); EOS # 0.2 K/uL (0.0-0.7); EOS % 2.5 % (0.0-4.0); HEMOGLOBIN 10.9 g/dL (12.0-18.0); LYMPH # 0.7 K/uL (1.0-4.3); LYMPH % 10.4 % (20.0-40.0); MEAN CELL VOLUME 85.9 fL (80.0-94.0); MEAN CORPUSCULAR HEMOGLOBIN 29.7 pg (27.0-31.0); MEAN CORPUSCULAR HGB CONC 34.6 g/dL (33.0-37.0); MONO # 0.7 K/uL (0.0-0.8); MONO % 11.4 % (0.0-10.0); NEUT # 4.9 K/uL (1.8-7.0); NEUT % 75.1 % (50.0-75.0); NRBC % 0.1 % (0.0-2.0); RBC 3.66 Mil/uL (4.40-5.90); RED CELL DISTRIBUTION WIDTH 15.7 % (11.5-14.5); WHITE BLOOD COUNT 6.5 K/uL (4.8-10.8)
[2017-09-20] MEDS: (Novolin R) Insulin Human Regular 100 units/ml vial SC SCH ×4 (08:12→21:12)
[2017-09-20 08:13] LABS: ALB/GLOB RATIO 1.4 (1.0-2.1); ALBUMIN 3.8 g/dL (3.5-5.0); CALCIUM 8.9 mg/dl (8.6-10.4)
[2017-09-20] MEDS ORDERED: Sacubitril/Valsartan 24-26mg Tab PO SCH (10:00)
[2017-09-20] MEDS ORDERED: Patient's Own Medication - Tablet/Capusle PO SCH (10:00)
[2017-09-20] MEDS: ULORIC 40 MG PO SCH (10:16)
[2017-09-20] MEDS: TRADJENTA 5 MG PO SCH (10:16)
[2017-09-20] MEDS: Saccharomyces Boulardi 250 mg Cap PO SCH ×2 (10:17→17:07)
--- NOTE | 2017-09-20 10:19 | CP.PCM.CON ---
History of Present Illness - History of Present Illness History of Present Illness: CC "burned soles of feet, red and painful" - walked barefooted on very hot pavement HPI: Patient is a 62 year old male with history of diabetes, chronic kidney disease - on hemodialysis MWF, coronary artery disease, hx of AL - 19 years ago at age 43 who presents for redness and pain at the soles of his feet after he burned them while walking on hot pavement at [facility] 8 days ago. He states he was only on the hot pavement for a few steps from the pool to the umbrella. He state that he didn't experience any pain immediately after, however experienced some burning 5 to 6 hours later. Fabiola at bedside stated she saw white skin hanging loose, which she removed and treated with Bacitracin and hydrogen peroxide. Stated that his pain worsened to a 12/10 yesterday and he woke up in the middle of his sleep from the pain. Patient denies prior issues with feet, prior infections on feet. He currently stated that his feet feel painful with redness going up both his legs. Patient received Vancomycin 1g IV while in ED. He denies fevers, chills, diaphoresis, weakness, headache, dizziness, lightheadedness, changes in vision, changes in hearing, sore throat, dysphagia, chest pain, palpitations, shortness of breath, cough, abdominal pain , nausea, vomiting, diarrhea, constipation, dysuria, back pain, recent travel, recent sickness, sick contacts, changes in weight or appetite. PMH: DM, CKD on HD (MWF), CAD, hx of AL 19 years ago PSH: permacath, pacemaker, CABG Family hx: Brother of AL at age 35. Brother of hyperlipidemia and AL at age 60. Mother has history of DM and cardiac disease. Father hx of AL - in 80s. No history of stroke or cancer in family Social hx: Smokes 1/3 ppd x47 years (From age [age]). Denies hx of ETOH or illict drug use. Currently lives with and son. 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 Meds: Calcium acetate 667mg BID, Coreg 3.125mg BID, Trajenta 5mg daily, ASA 81mg daily, Plavix 75mg daily, Uloric 40mg daily, Glipizide 10mg daily, Paroxetine 10mg daily, Tamsulosin 0.4mg daily, [id number]/26, Atorvastatin 40mg daily Allergies: Morphine --> "act crazy" Review of Systems - Constitutional Constitutional: Fatigue, Weakness - EENT Eyes: absent: As Per HPI, Blind Spots, Blurred Vision, Change in Vision, Decreased Night Vision, Diplopia, Discharge, Dry Eye, Exophthalmos, Floaters, Irritation, Itchy Eyes, Loss of Peripheral Vision, Pain, Photophobia, Requires Corrective Lenses, Sees Flashes, Spots in Vision, Tunnel Vision, Other Visual Disturbances, Loss of Vision, Other Ears: absent: As Per HPI, Decreased Hearing, Ear Discharge, Ear Pain, Tinnitus, Abnormal Hearing, Disequilibrium, Dizziness, Other Nose/Mouth/Throat: absent: As Per HPI, Epistaxis, Nasal Congestion, Nasal Discharge, Nasal Obstruction, Nasal Trauma, Nose Pain, Post Nasal Drip, Sinus Pain, Sinus Pressure, Bleeding Gums, Change in Voice, Dental Pain, Dry Mouth, Dysphagia, Halitosis, Hoarsness, Lip Swelling, Mouth Lesions, Mouth Pain, Odynophagia, Sore Throat, Throat Swelling, Tongue Swelling, Facial Pain, Neck Pain, Neck Mass, Other - Cardiovascular Cardiovascular: absent: As Per HPI, Acrocyanosis, Chest Pain, Chest Pain at Rest , Chest Pain with Activity, Claudication, Diaphoresis, Dyspnea, Dyspnea on Exertion, Edema, Irregular Heart Rhythm, Pain Radiating to Arm/Neck/Jaw, Leg Edema, Leg Ulcers, Lightheadedness, Orthopnea, Palpitations, Paroxysmal Nocturnal Dyspnea, Pedal Edema, Radiating Pain, Rapid Heart Rate, Slow Heart Rate, Syncope, Other - Respiratory Respiratory: absent: As Per HPI, Cough, Dyspnea, Hemoptysis, Dyspnea on Exertion , Wheezing, Snoring, Stridor, Pain on Inspiration, Chest Congestion, Excessive Mucous Production, Change in Mucous Color, Pain with Coughing, Other - Gastrointestinal Gastrointestinal: absent: As Per HPI, Abdominal Pain, Belching, Bloating, Change in Bowel Habits, Change in Stool Character, Coffee Ground Emesis, Constipation, Cramping, Diarrhea, Dyspepsia, Dysphagia, Early Satiety, Excessive Flatus, Fecal Incontinence, Heartburn, Hematemesis, Hematochezia, Loose Stools, Melena, Nausea, Odynophagia, Temesmus, Vomiting, Other - Genitourinary Genitourinary: As Per HPI - Musculoskeletal Musculoskeletal: Muscle Cramps, Muscle Weakness, Myalgias - Integumentary Integumentary: As Per HPI, Rash, Sores - Neurological Neurological: Weakness Past Patient History - Past Medical History & Family History Past Medical History?: Yes Pertinent Family History: see hx - Past Social History Smoking Status: Former Smoker Chewing Tobacco Use: No Cigar Use: No Alcohol: Occasional Drugs: Denies - CARDIAC Hx Pacemaker: Yes - RENAL Hx Chronic Kidney Disease: Yes (on dialysis MWF) - ENDOCRINE/METABOLIC Hx Diabetes Mellitus Type 2: Yes - MUSCULOSKELETAL/RHEUMATOLOGICAL Hx Falls: No - PSYCHIATRIC Hx Substance Use: No - SURGICAL HISTORY Hx Coronary Artery Bypass Graft: Yes - ANESTHESIA Hx Anesthesia: Yes Hx Anesthesia Reactions: No Meds Allergies/Adverse Reactions: Allergies Allergy/AdvReac Type Severity Reaction Status Date / Time morphine AdvReac FATIGUE Verified 09/19/17 23:39 - Medications Medications: Current Medications Aspirin (Aspirin Chewable) 81 mg PO DAILY [facility] Calcium Acetate (Phoslo) 667 mg PO BIDCC [facility] Last Admin: 09/20/17 08:21 Dose: 667 mg Carvedilol (Coreg) 3.125 mg PO BID [facility] Clopidogrel Bisulfate (Plavix) 75 mg PO DAILY [facility] Dextrose (Dextrose 50% Inj) 0 ml IV STAT PRN; Protocol PRN Reason: Hypoglycemia Protocol Dextrose (Glutose 15) 0 gm PO ONCE PRN; Protocol PRN Reason: Hypoglycemia Protocol Glipizide (Glucotrol) 10 mg PO ACB [facility] Last Admin: 09/20/17 08:21 Dose: 10 mg Glucagon (Glucagen Diagnostic Kit) 0 mg IM STAT PRN; Protocol PRN Reason: Hypoglycemia Protocol Heparin Sodium (Porcine) (Heparin) 5,000 units SC Q12 [facility] Last Admin: 09/19/17 21:49 Dose: 5,000 units Home Med (Patient's Own Medication) 1 tab PO DAILY [facility] Home Med (Patient's Own Medication) 1 tab PO DAILY [facility] Ceftriaxone Sodium 1 gm/ (Sodium Chloride) 100 mls @ 100 mls/hr IVPB Q24H [facility] PRN Reason: Protocol Dextrose (Dextrose 5% In Water 1000 Ml) 1,000 mls @ 0 mls/hr IV .Q0M PRN; Protocol; Per Protocol PRN Reason: Hypoglycemia Protocol Insulin Human Regular (Novolin R) 0 unit SC ACHS [facility] PRN Reason: Protocol Last Admin: 09/20/17 08:12 Dose: Not Given Paroxetine HCl (Paxil) 10 mg PO DAILY [facility] Rosuvastatin Calcium (Crestor) 20 mg PO HS [facility] Last Admin: 09/19/17 21:49 Dose: 20 mg Saccharomyces Boulardii (Florastor) 250 mg PO BID [facility] Sacubitril/Valsartan (Entresto 24 Mg-26 Mg) 1 tab PO BID [facility] Silver Sulfadiazine (Silvadene 1% 20 Gm) 0 ea TOP DAILY [facility] Tamsulosin HCl (Flomax) 0.4 mg PO DAILY [facility] Physical Exam - Head Exam Head Exam: ATRAUMATIC, NORMAL INSPECTION - Eye Exam Eye Exam: EOMI, Normal appearance - Neck Exam Neck exam: Positive for: Normal Inspection. Negative for: Tenderness - Respiratory Exam Respiratory Exam: Clear to Auscultation Bilateral, NORMAL BREATHING PATTERN - Cardiovascular Exam Cardiovascular Exam: REGULAR RHYTHM, +S1 - GI/Abdominal Exam GI & Abdominal Exam: Soft. absent: Tenderness - Extremities Exam Extremities exam: Positive for: normal inspection. Negative for: tenderness - Neurological Exam Neurological exam: CN II-XII Intact, Oriented x3 - Skin Skin Exam: Dry, Warm Results - Vital Signs Recent Vital Signs: Last Vital Signs Temp 97.5 F L 09/20/17 08:00 Pulse 78 09/20/17 08:00 Resp 20 09/20/17 08:00 BP 101/99 H 09/20/17 08:00 Pulse Ox 97 09/20/17 08:00 - Labs Result Diagrams: 09/20/17 07:47 09/20/17 07:47 Labs: Laboratory Results - last 24 hr 09/19/17 09/19/17 09/19/17 16:01 16:01 16:20 WBC 8.1 RBC 3.94 L Hgb 11.5 L Hct 33.7 L MCV 85.4 MCH 29.3 MCHC 34.3 RDW 15.8 H Plt Count 124 L MPV 8.3 Neut % (Auto) 80.9 H Lymph % (Auto) 9.5 L [place] % (Auto) 7.7 Eos % (Auto) 1.5 Baso % (Auto) 0.4 Neut # (Auto) 6.5 Lymph # (Auto) 0.8 L [place] # (Auto) 0.6 Eos # (Auto) 0.1 Baso # (Auto) 0.0 Neutrophils % (Manual) 85 H Lymphocytes % (Manual) 10 L Monocytes % (Manual) 4 Eosinophils % (Manual) 1 Platelet Estimate Slightly decreased L Hypochromasia (manual) Slight Poikilocytosis (manual Slight Anisocytosis (manual) Slight pO2 34 VBG pH 7.47 H VBG pCO2 42 VBG HCO3 29.0 VBG Total CO2 31.9 H VBG O2 Sat (Calc) 78.3 H VBG Base Excess 6.2 H VBG Potassium 3.4 L Glucose 236 H Lactate 1.8 FiO2 21.0 Sodium 139 137.0 Potassium 3.6 Chloride 96 L 102.0 Carbon Dioxide 29 Anion Gap 18 BUN 17 Creatinine 2.5 H Est GFR ( Amer) 32 Est GFR (Non-Af Amer) 26 POC Glucose (mg/dL) Random Glucose 247 H Hemoglobin A1c Calcium 9.0 Phosphorus Magnesium Total Bilirubin AST ALT Alkaline Phosphatase Total Protein Albumin Globulin Albumin/Globulin Ratio Venous Blood Potassium 3.4 L 09/19/17 09/20/17 09/20/17 21:16 07:18 07:47 WBC RBC Hgb Hct MCV MCH MCHC RDW Plt Count MPV Neut % (Auto) Lymph % (Auto) [place] % (Auto) Eos % (Auto) Baso % (Auto) Neut # (Auto) Lymph # (Auto) [place] # (Auto) Eos # (Auto) Baso # (Auto) Neutrophils % (Manual) Lymphocytes % (Manual) Monocytes % (Manual) Eosinophils % (Manual) Platelet Estimate Hypochromasia (manual) Poikilocytosis (manual Anisocytosis (manual) pO2 VBG pH VBG pCO2 VBG HCO3 VBG Total CO2 VBG O2 Sat (Calc) VBG Base Excess VBG Potassium Glucose Lactate FiO2 Sodium Potassium Chloride Carbon Dioxide Anion Gap BUN Creatinine Est GFR ( Amer) Est GFR (Non-Af Amer) POC Glucose (mg/dL) 101 146 H Random Glucose Hemoglobin A1c 6.5 Calcium Phosphorus Magnesium Total Bilirubin AST ALT Alkaline Phosphatase Total Protein Albumin Globulin Albumin/Globulin Ratio Venous Blood Potassium 09/20/17 09/20/17 07:47 07:47 WBC 6.5 RBC 3.66 L Hgb 10.9 L Hct 31.5 L MCV 85.9 MCH 29.7 MCHC 34.6 RDW 15.7 H Plt Count 123 L MPV 8.0 Neut % (Auto) 75.1 H Lymph % (Auto) 10.4 L [place] % (Auto) 11.4 H Eos % (Auto) 2.5 Baso % (Auto) 0.6 Neut # (Auto) 4.9 Lymph # (Auto) 0.7 L [place] # (Auto) 0.7 Eos # (Auto) 0.2 Baso # (Auto) 0.0 Neutrophils % (Manual) Lymphocytes % (Manual) Monocytes % (Manual) Eosinophils % (Manual) Platelet Estimate Hypochromasia (manual) Poikilocytosis (manual Anisocytosis (manual) pO2 VBG pH VBG pCO2 VBG HCO3 VBG Total CO2 VBG O2 Sat (Calc) VBG Base Excess VBG Potassium Glucose Lactate FiO2 Sodium 142 Potassium 4.1 Chloride 101 Carbon Dioxide 29 Anion Gap 16 BUN 32 H Creatinine 3.7 H Est GFR ( Amer) 20 Est GFR (Non-Af Amer) 17 POC Glucose (mg/dL) Random Glucose 145 H Hemoglobin A1c Calcium 8.9 Phosphorus 2.7 Magnesium 2.1 Total Bilirubin 0.7 AST 14 L ALT 18 L Alkaline Phosphatase 105 Total Protein 6.6 Albumin 3.8 Globulin 2.8 Albumin/Globulin Ratio 1.4 Venous Blood Potassium Assessment & Plan (1) Cellulitis of both feet Status: Acute (2) Guerrero involv 10-19% of body surface w/less than 10% third degree guerrero Status: Acute (3) Type 2 diabetes mellitus with diabetic nephropathy Status: Acute (4) End stage renal disease Status: Acute (5) CAD (coronary artery disease) Status: Acute (6) PVD (peripheral vascular disease) Status: Acute - Assessment and Plan (Free Text) Plan: wound care feet IV ABs dialysis MWF
[2017-09-20] MEDS: Silver Sulfadiazine 1% Cream (20 gm) TOP SCH (10:25)
--- NOTE | 2017-09-20 15:14 | CP.PCM.PN ---
<[email or web address] - Last Filed: 09/20/17 15:11> Subjective - Date & Time of Evaluation Date of Evaluation: 09/20/17 Time of Evaluation: 15:11 - Subjective Subjective: Podiatry progress note: Dr. Pierce 62 year old male patient was seen and evaluated with attending Dr. Pierce for bilateral foot burn wounds and cellulitis. Patient is AAOx3 and appears in NAD. Denies of any acute overnight events. No other pedal complains. Denies F/N/V/C/ SOB/CP/headache/diarrhea. Objective - Vital Signs/Intake and Output Vital Signs (last 24 hours): Temp Pulse Resp BP Pulse Ox 97.5 F L 78 20 101/99 H 97 09/20/17 08:00 09/20/17 08:00 09/20/17 08:00 09/20/17 08:00 09/20/17 08:00 Intake and Output: 09/20/17 09/20/17 06:59 18:59 Intake Total 200 460 Balance 200 460 - Medications Medications: Current Medications Aspirin (Aspirin Chewable) 81 mg PO DAILY [facility] Last Admin: 09/20/17 10:17 Dose: 81 mg Calcium Acetate (Phoslo) 667 mg PO BIDCC [facility] Last Admin: 09/20/17 08:21 Dose: 667 mg Carvedilol (Coreg) 3.125 mg PO BID [facility] Last Admin: 09/20/17 10:21 Dose: 3.125 mg Clopidogrel Bisulfate (Plavix) 75 mg PO DAILY [facility] Last Admin: 09/20/17 10:17 Dose: 75 mg Dextrose (Dextrose 50% Inj) 0 ml IV STAT PRN; Protocol PRN Reason: Hypoglycemia Protocol Dextrose (Glutose 15) 0 gm PO ONCE PRN; Protocol PRN Reason: Hypoglycemia Protocol Glipizide (Glucotrol) 10 mg PO ACB [facility] Last Admin: 09/20/17 08:21 Dose: 10 mg Glucagon (Glucagen Diagnostic Kit) 0 mg IM STAT PRN; Protocol PRN Reason: Hypoglycemia Protocol Heparin Sodium (Porcine) (Heparin) 5,000 units SC Q12 [facility] Last Admin: 09/20/17 10:17 Dose: 5,000 units Home Med (Patient's Own Medication) 1 tab PO DAILY [facility] Last Admin: 09/20/17 10:16 Dose: 1 tab Home Med (Patient's Own Medication) 1 tab PO DAILY [facility] Last Admin: 09/20/17 10:16 Dose: 1 tab Ceftriaxone Sodium 1 gm/ (Sodium Chloride) 100 mls @ 100 mls/hr IVPB Q24H [facility] PRN Reason: Protocol Last Admin: 09/20/17 10:24 Dose: 100 mls/hr Dextrose (Dextrose 5% In Water 1000 Ml) 1,000 mls @ 0 mls/hr IV .Q0M PRN; Protocol; Per Protocol PRN Reason: Hypoglycemia Protocol Insulin Human Regular (Novolin R) 0 unit SC ACHS [facility] PRN Reason: Protocol Last Admin: 09/20/17 12:30 Dose: Not Given Paroxetine HCl (Paxil) 10 mg PO DAILY [facility] Last Admin: 09/20/17 10:17 Dose: 10 mg Rosuvastatin Calcium (Crestor) 20 mg PO HS [facility] Last Admin: 09/19/17 21:49 Dose: 20 mg Saccharomyces Boulardii (Florastor) 250 mg PO BID [facility] Last Admin: 09/20/17 10:17 Dose: 250 mg Sacubitril/Valsartan (Entresto 24 Mg-26 Mg) 1 tab PO BID [facility] Silver Sulfadiazine (Silvadene 1% 20 Gm) 0 ea TOP DAILY [facility] Last Admin: 09/20/17 10:25 Dose: Not Given Tamsulosin HCl (Flomax) 0.4 mg PO DAILY [facility] Last Admin: 09/20/17 10:17 Dose: 0.4 mg - Labs Labs: 09/20/17 07:47 09/20/17 07:47 - Constitutional Appears: Well, Non-toxic, No Acute Distress - Extremities Exam Additional comments: Bilateral LE exam VASC: DP/PT pulses are very faintly palpable 1/4, Cap refill time: < 3 sec to all digits, Temp gradient: warm to fairly warm from proximal to distal (R>L), no pitting or non-pitting edema noted DERM: Superficial epidermal lysis with healthy grannular tissue on the wound bed noted on the plantar forefoot at the ball of the foot, erythema which extends from the dorsum of the foot proximally towards the knee joint with streaks (R>L), no active drainage, no malodor, no probe to bone, no tunneling or tracking NEURO: Protective sensation mildly diminished ORTHO: no pain on palpation of the wounds - Neurological Exam Neurological Exam: Alert, Awake, Oriented x3 - Psychiatric Exam Psychiatric exam: Normal Affect, Normal Mood Assessment and Plan - Assessment and Plan (Free Text) Assessment: 62 year old male was evaluated for 1). plantar forefoot wound secondary to second degree burn 2). Cellulitis Plan: Patient seen and evaluated with attending Dr. Pierce Labs, vitals and charts reviewed - afebrile, no leukocytosis X-rays of the foot reviewed - no acute concern for OM Burn wounds cleaned with saline and dressing applied using xeroform, DSD Wound cultures pending Continue IV abx - Ceftriaxone Silvadine ordered ID consult - Dr. Frazier ANUSHA/PVR ordered - pending Vascular consult - Dr. Hernandez Podiatry to perform local wound care Podiatry to follow patient while in-house <Oscar Pierce - Last Filed: 09/20/17 20:26> Objective - Vital Signs/Intake and Output Vital Signs (last 24 hours): Temp Pulse Resp BP Pulse Ox 98.2 F 81 20 131/73 96 09/20/17 16:00 09/20/17 16:00 09/20/17 16:00 09/20/17 16:00 09/20/17 16:00 Intake and Output: 09/20/17 09/21/17 18:59 06:59 Intake Total 460 Balance 460 - Medications Medications: Current Medications Aspirin (Aspirin Chewable) 81 mg PO DAILY [facility] Last Admin: 09/20/17 10:17 Dose: 81 mg Calcium Acetate (Phoslo) 667 mg PO BIDCC [facility] Last Admin: 09/20/17 17:06 Dose: 667 mg Carvedilol (Coreg) 3.125 mg PO BID [facility] Last Admin: 09/20/17 17:06 Dose: 3.125 mg Clopidogrel Bisulfate (Plavix) 75 mg PO DAILY [facility] Last Admin: 09/20/17 10:17 Dose: 75 mg Dextrose (Dextrose 50% Inj) 0 ml IV STAT PRN; Protocol PRN Reason: Hypoglycemia Protocol Dextrose (Glutose 15) 0 gm PO ONCE PRN; Protocol PRN Reason: Hypoglycemia Protocol Glipizide (Glucotrol) 10 mg PO ACB [facility] Last Admin: 09/20/17 08:21 Dose: 10 mg Glucagon (Glucagen Diagnostic Kit) 0 mg IM STAT PRN; Protocol PRN Reason: Hypoglycemia Protocol Heparin Sodium (Porcine) (Heparin) 5,000 units SC Q12 [facility] Last Admin: 09/20/17 10:17 Dose: 5,000 units Home Med (Patient's Own Medication) 1 tab PO DAILY [facility] Last Admin: 09/20/17 10:16 Dose: 1 tab Home Med (Patient's Own Medication) 1 tab PO DAILY [facility] Last Admin: 09/20/17 10:16 Dose: 1 tab Ceftriaxone Sodium 1 gm/ (Sodium Chloride) 100 mls @ 100 mls/hr IVPB Q24H [facility] PRN Reason: Protocol Last Admin: 09/20/17 10:24 Dose: 100 mls/hr Dextrose (Dextrose 5% In Water 1000 Ml) 1,000 mls @ 0 mls/hr IV .Q0M PRN; Protocol; Per Protocol PRN Reason: Hypoglycemia Protocol Vancomycin/Sodium Chloride (Vancomycin 1 Gm/Ns 200 Ml) 1 gm in 200 mls @ 133.333 mls/hr IVPB MWF [facility] PRN Reason: Protocol Stop: 09/26/17 09:01 Insulin Human Regular (Novolin R) 0 unit SC ACHS [facility] PRN Reason: Protocol Last Admin: 09/20/17 17:22 Dose: Not Given Paroxetine HCl (Paxil) 10 mg PO DAILY [facility] Last Admin: 09/20/17 10:17 Dose: 10 mg Rosuvastatin Calcium (Crestor) 20 mg PO HS [facility] Last Admin: 09/19/17 21:49 Dose: 20 mg Saccharomyces Boulardii (Florastor) 250 mg PO BID [facility] Last Admin: 09/20/17 17:07 Dose: 250 mg Sacubitril/Valsartan (Entresto 24 Mg-26 Mg) 1 tab PO BID [facility] Silver Sulfadiazine (Silvadene 1% 20 Gm) 0 ea TOP DAILY [facility] Last Admin: 09/20/17 10:25 Dose: Not Given Tamsulosin HCl (Flomax) 0.4 mg PO DAILY [facility] Last Admin: 09/20/17 10:17 Dose: 0.4 mg - Labs Labs: 09/20/17 07:47 09/20/17 07:47
--- NOTE | 2017-09-20 15:34 | CP.PCM.PN ---
Subjective - Date & Time of Evaluation Date of Evaluation: 09/20/17 Time of Evaluation: 07:30 - Subjective Subjective: Progress note for Hospitalist service Patient seen and examined at bedside. Objective - Vital Signs/Intake and Output Vital Signs (last 24 hours): Temp Pulse Resp BP Pulse Ox 97.5 F L 78 20 101/99 H 97 09/20/17 08:00 09/20/17 08:00 09/20/17 08:00 09/20/17 08:00 09/20/17 08:00 Intake and Output: 09/20/17 09/20/17 06:59 18:59 Intake Total 200 460 Balance 200 460 - Medications Medications: Current Medications Aspirin (Aspirin Chewable) 81 mg PO DAILY [facility] Last Admin: 09/20/17 10:17 Dose: 81 mg Calcium Acetate (Phoslo) 667 mg PO BIDCC [facility] Last Admin: 09/20/17 08:21 Dose: 667 mg Carvedilol (Coreg) 3.125 mg PO BID [facility] Last Admin: 09/20/17 10:21 Dose: 3.125 mg Clopidogrel Bisulfate (Plavix) 75 mg PO DAILY [facility] Last Admin: 09/20/17 10:17 Dose: 75 mg Dextrose (Dextrose 50% Inj) 0 ml IV STAT PRN; Protocol PRN Reason: Hypoglycemia Protocol Dextrose (Glutose 15) 0 gm PO ONCE PRN; Protocol PRN Reason: Hypoglycemia Protocol Glipizide (Glucotrol) 10 mg PO ACB [facility] Last Admin: 09/20/17 08:21 Dose: 10 mg Glucagon (Glucagen Diagnostic Kit) 0 mg IM STAT PRN; Protocol PRN Reason: Hypoglycemia Protocol Heparin Sodium (Porcine) (Heparin) 5,000 units SC Q12 [facility] Last Admin: 09/20/17 10:17 Dose: 5,000 units Home Med (Patient's Own Medication) 1 tab PO DAILY [facility] Last Admin: 09/20/17 10:16 Dose: 1 tab Home Med (Patient's Own Medication) 1 tab PO DAILY [facility] Last Admin: 09/20/17 10:16 Dose: 1 tab Ceftriaxone Sodium 1 gm/ (Sodium Chloride) 100 mls @ 100 mls/hr IVPB Q24H [facility] PRN Reason: Protocol Last Admin: 09/20/17 10:24 Dose: 100 mls/hr Dextrose (Dextrose 5% In Water 1000 Ml) 1,000 mls @ 0 mls/hr IV .Q0M PRN; Protocol; Per Protocol PRN Reason: Hypoglycemia Protocol Insulin Human Regular (Novolin R) 0 unit SC ACHS [facility] PRN Reason: Protocol Last Admin: 09/20/17 12:30 Dose: Not Given Paroxetine HCl (Paxil) 10 mg PO DAILY [facility] Last Admin: 09/20/17 10:17 Dose: 10 mg Rosuvastatin Calcium (Crestor) 20 mg PO HS [facility] Last Admin: 09/19/17 21:49 Dose: 20 mg Saccharomyces Boulardii (Florastor) 250 mg PO BID [facility] Last Admin: 09/20/17 10:17 Dose: 250 mg Sacubitril/Valsartan (Entresto 24 Mg-26 Mg) 1 tab PO BID [facility] Silver Sulfadiazine (Silvadene 1% 20 Gm) 0 ea TOP DAILY [facility] Last Admin: 09/20/17 10:25 Dose: Not Given Tamsulosin HCl (Flomax) 0.4 mg PO DAILY [facility] Last Admin: 09/20/17 10:17 Dose: 0.4 mg - Labs Labs: 09/20/17 07:47 09/20/17 07:47
--- NOTE | 2017-09-20 19:02 | CP.PCM.CON ---
History of Present Illness - History of Present Illness History of Present Illness: 62 year old Male referred for ID for evaluation of second degree guerrero to feet bilaterally with secondary cellulitis up legs right > Left Pt states he was walking barefoot on hot pavement on 09/11 when he began to feel burning pain to the plantar aspect of his feet bilaterally. Pt continues to state that the pain has been constant in nature and radiates into the anterior leg bilaterally. Pt states the pain is worse with movement and better with rest and elevation. Pt denies any SOB, chest pain, N/V/D, or any other sx at this time. +Doppler signals PT/DP b/l. PMH:ESRD, DM, CAD, HTN PSH: 5 coronary stents, femoral stents bilaterally Medications: Ceftriaxone, Plavix, ASA Fam Hx: CAD maternal and paternal Social: smokes 6 cigarretes/day, denies alcohol, denies ellicit drug use Allergies: NKDA Review of Systems - Constitutional Constitutional: As Per HPI - EENT Eyes: absent: As Per HPI, Blind Spots, Blurred Vision, Change in Vision, Decreased Night Vision, Diplopia, Discharge, Dry Eye, Exophthalmos, Floaters, Irritation, Itchy Eyes, Loss of Peripheral Vision, Pain, Photophobia, Requires Corrective Lenses, Sees Flashes, Spots in Vision, Tunnel Vision, Other Visual Disturbances, Loss of Vision, Other Ears: absent: As Per HPI, Decreased Hearing, Ear Discharge, Ear Pain, Tinnitus, Abnormal Hearing, Disequilibrium, Dizziness, Other Nose/Mouth/Throat: absent: As Per HPI, Epistaxis, Nasal Congestion, Nasal Discharge, Nasal Obstruction, Nasal Trauma, Nose Pain, Post Nasal Drip, Sinus Pain, Sinus Pressure, Bleeding Gums, Change in Voice, Dental Pain, Dry Mouth, Dysphagia, Halitosis, Hoarsness, Lip Swelling, Mouth Lesions, Mouth Pain, Odynophagia, Sore Throat, Throat Swelling, Tongue Swelling, Facial Pain, Neck Pain, Neck Mass, Other - Cardiovascular Cardiovascular: absent: As Per HPI, Acrocyanosis, Chest Pain, Chest Pain at Rest , Chest Pain with Activity, Claudication, Diaphoresis, Dyspnea, Dyspnea on Exertion, Edema, Irregular Heart Rhythm, Pain Radiating to Arm/Neck/Jaw, Leg Edema, Leg Ulcers, Lightheadedness, Orthopnea, Palpitations, Paroxysmal Nocturnal Dyspnea, Pedal Edema, Radiating Pain, Rapid Heart Rate, Slow Heart Rate, Syncope, Other - Respiratory Respiratory: absent: As Per HPI, Cough, Dyspnea, Hemoptysis, Dyspnea on Exertion , Wheezing, Snoring, Stridor, Pain on Inspiration, Chest Congestion, Excessive Mucous Production, Change in Mucous Color, Pain with Coughing, Other - Gastrointestinal Gastrointestinal: absent: As Per HPI, Abdominal Pain, Belching, Bloating, Change in Bowel Habits, Change in Stool Character, Coffee Ground Emesis, Constipation, Cramping, Diarrhea, Dyspepsia, Dysphagia, Early Satiety, Excessive Flatus, Fecal Incontinence, Heartburn, Hematemesis, Hematochezia, Loose Stools, Melena, Nausea, Odynophagia, Temesmus, Vomiting, Other - Genitourinary Genitourinary: absent: As Per HPI, Change in Urinary Stream, Difficulty Urinating, Dysuria, Flank Pain, Hematuria, Pyuria, Nocturia, Urinary Incontinence, Urinary Frequency, Urinary Hesitance, Urinary Urgency, Voiding Freq/Small Amts, Freq UTI, Hx Renal/Bladder Calculi, Hx /Renal Surgery, Bladder Distension, Other - Musculoskeletal Musculoskeletal: As Per HPI - Integumentary Integumentary: As Per HPI, Skin Pain, Wounds - Neurological Neurological: absent: As Per HPI, Abnormal Gait, Abnormal Hearing, Abnormal Movements, Abnormal Speech, Behavioral Changes, Burning Sensations, Confusion, Convulsions, Disequilibrium, Dizziness, Numbness, Focal Weakness, Frequent Falls , Headaches, Lack of Coordination, Loss of Vision, Memory Loss, Paresthesias, Radicular Pain, Restless Legs, Sensory Deficit, Syncope, Tingling, Tremor, Vertigo, Weakness, Other Visual Disturbances, Other - Psychiatric Psychiatric: absent: As Per HPI, Abnormal Sleep Pattern, Anhedonia, Anxiety, Auditory Hallucinations, Behavioral Changes, Change in Appetite, Change in Libido, Confusion, Depression, Difficulty Concentrating, Hallucinations, Homicidal Ideation, Hopelessness, Irritability, Memory Loss, Mood Swings, Panic Attacks, Paranoia, Suicidal Ideation, Visual Hallucinations, Tactile Hallucinations, Other - Endocrine Endocrine: absent: As Per HPI, Change in Body Appearance, Change in Libido, Cold Intolorance, Deepening of Voice, Excessive Sweating, Fatigue, Flushing, Heat Intolorance, Increase in Ring/Shoe/Hat Size, Palpitations, Polydipsia, Polyphagia, Polyuria, Other - Hematologic/Lymphatic Hematologic: absent: As Per HPI, Easy Bleeding, Easy Bruising, Lymphadenopathy, Other Past Patient History - Past Medical History & Family History Past Medical History?: Yes - Past Social History Smoking Status: Former Smoker Chewing Tobacco Use: No Cigar Use: No Alcohol: Occasional Drugs: Denies - CARDIAC Hx Pacemaker: Yes - RENAL Hx Chronic Kidney Disease: Yes (on dialysis MWF) - ENDOCRINE/METABOLIC Hx Diabetes Mellitus Type 2: Yes - MUSCULOSKELETAL/RHEUMATOLOGICAL Hx Falls: No - PSYCHIATRIC Hx Substance Use: No - SURGICAL HISTORY Hx Coronary Artery Bypass Graft: Yes - ANESTHESIA Hx Anesthesia: Yes Hx Anesthesia Reactions: No Meds Allergies/Adverse Reactions: Allergies Allergy/AdvReac Type Severity Reaction Status Date / Time morphine AdvReac FATIGUE Verified 09/19/17 23:39 - Medications Medications: Current Medications Aspirin (Aspirin Chewable) 81 mg PO DAILY [facility] Last Admin: 09/20/17 10:17 Dose: 81 mg Calcium Acetate (Phoslo) 667 mg PO BIDCC [facility] Last Admin: 09/20/17 17:06 Dose: 667 mg Carvedilol (Coreg) 3.125 mg PO BID [facility] Last Admin: 09/20/17 17:06 Dose: 3.125 mg Clopidogrel Bisulfate (Plavix) 75 mg PO DAILY [facility] Last Admin: 09/20/17 10:17 Dose: 75 mg Dextrose (Dextrose 50% Inj) 0 ml IV STAT PRN; Protocol PRN Reason: Hypoglycemia Protocol Dextrose (Glutose 15) 0 gm PO ONCE PRN; Protocol PRN Reason: Hypoglycemia Protocol Glipizide (Glucotrol) 10 mg PO ACB [facility] Last Admin: 09/20/17 08:21 Dose: 10 mg Glucagon (Glucagen Diagnostic Kit) 0 mg IM STAT PRN; Protocol PRN Reason: Hypoglycemia Protocol Heparin Sodium (Porcine) (Heparin) 5,000 units SC Q12 [facility] Last Admin: 09/20/17 10:17 Dose: 5,000 units Home Med (Patient's Own Medication) 1 tab PO DAILY [facility] Last Admin: 09/20/17 10:16 Dose: 1 tab Home Med (Patient's Own Medication) 1 tab PO DAILY [facility] Last Admin: 09/20/17 10:16 Dose: 1 tab Ceftriaxone Sodium 1 gm/ (Sodium Chloride) 100 mls @ 100 mls/hr IVPB Q24H [facility] PRN Reason: Protocol Last Admin: 09/20/17 10:24 Dose: 100 mls/hr Dextrose (Dextrose 5% In Water 1000 Ml) 1,000 mls @ 0 mls/hr IV .Q0M PRN; Protocol; Per Protocol PRN Reason: Hypoglycemia Protocol Insulin Human Regular (Novolin R) 0 unit SC [facility] PRN Reason: Protocol Last Admin: 09/20/17 17:22 Dose: Not Given Paroxetine HCl (Paxil) 10 mg PO DAILY [facility] Last Admin: 09/20/17 10:17 Dose: 10 mg Rosuvastatin Calcium (Crestor) 20 mg PO HS [facility] Last Admin: 09/19/17 21:49 Dose: 20 mg Saccharomyces Boulardii (Florastor) 250 mg PO BID [facility] Last Admin: 09/20/17 17:07 Dose: 250 mg Sacubitril/Valsartan (Entresto 24 Mg-26 Mg) 1 tab PO BID [facility] Silver Sulfadiazine (Silvadene 1% 20 Gm) 0 ea TOP DAILY [facility] Last Admin: 09/20/17 10:25 Dose: Not Given Tamsulosin HCl (Flomax) 0.4 mg PO DAILY [facility] Last Admin: 09/20/17 10:17 Dose: 0.4 mg Physical Exam - Constitutional Appears: Non-toxic, Chronically Ill - Head Exam Head Exam: NORMOCEPHALIC - Eye Exam Eye Exam: PERRL. absent: Scleral icterus - ENT Exam ENT Exam: Mucous Membranes Dry, Normal External Ear Exam - Neck Exam Neck exam: Negative for: Lymphadenopathy - Respiratory Exam Respiratory Exam: Decreased Breath Sounds - Cardiovascular Exam Cardiovascular Exam: REGULAR RHYTHM - GI/Abdominal Exam GI & Abdominal Exam: Diminished Bowel Sounds, Soft. absent: Tenderness - Rectal Exam Rectal Exam: Deferred - Exam Exam: NORMAL INSPECTION - Extremities Exam Extremities exam: Positive for: pedal edema, tenderness. Negative for: calf tenderness, pedal pulses present - Back Exam Back exam: absent: CVA tenderness (L), CVA tenderness (R), paraspinal tenderness - Neurological Exam Neurological exam: Alert, CN II-XII Intact, Oriented x3, Reflexes Normal - Psychiatric Exam Psychiatric exam: Normal Mood - Skin Skin Exam: Dry, Intact Results - Vital Signs Recent Vital Signs: Last Vital Signs Temp 98.2 F 09/20/17 16:00 Pulse 81 09/20/17 16:00 Resp 20 09/20/17 16:00 BP 131/73 09/20/17 16:00 Pulse Ox 96 09/20/17 16:00 - Labs Result Diagrams: 09/20/17 07:47 09/20/17 07:47 Labs: Laboratory Results - last 24 hr 09/19/17 09/20/17 09/20/17 21:16 07:18 07:47 WBC RBC Hgb Hct MCV MCH MCHC RDW Plt Count MPV Neut % (Auto) Lymph % (Auto) [place] % (Auto) Eos % (Auto) Baso % (Auto) Neut # (Auto) Lymph # (Auto) [place] # (Auto) Eos # (Auto) Baso # (Auto) Sodium Potassium Chloride Carbon Dioxide Anion Gap BUN Creatinine Est GFR ( Amer) Est GFR (Non-Af Amer) POC Glucose (mg/dL) 101 146 H Random Glucose Hemoglobin A1c 6.5 Calcium Phosphorus Magnesium Total Bilirubin AST ALT Alkaline Phosphatase Total Protein Albumin Globulin Albumin/Globulin Ratio 09/20/17 09/20/17 09/20/17 07:47 07:47 12:06 WBC 6.5 RBC 3.66 L Hgb 10.9 L Hct 31.5 L MCV 85.9 MCH 29.7 MCHC 34.6 RDW 15.7 H Plt Count 123 L MPV 8.0 Neut % (Auto) 75.1 H Lymph % (Auto) 10.4 L [place] % (Auto) 11.4 H Eos % (Auto) 2.5 Baso % (Auto) 0.6 Neut # (Auto) 4.9 Lymph # (Auto) 0.7 L [place] # (Auto) 0.7 Eos # (Auto) 0.2 Baso # (Auto) 0.0 Sodium 142 Potassium 4.1 Chloride 101 Carbon Dioxide 29 Anion Gap 16 BUN 32 H Creatinine 3.7 H Est GFR ( Amer) 20 Est GFR (Non-Af Amer) 17 POC Glucose (mg/dL) 197 H Random Glucose 145 H Hemoglobin A1c Calcium 8.9 Phosphorus 2.7 Magnesium 2.1 Total Bilirubin 0.7 AST 14 L ALT 18 L Alkaline Phosphatase 105 Total Protein 6.6 Albumin 3.8 Globulin 2.8 Albumin/Globulin Ratio 1.4 Assessment & Plan (1) Burn, foot, second degree Status: Acute (2) Guerrero involv 10-19% of body surface w/less than 10% third degree guerrero Status: Acute (3) CAD (coronary artery disease) Status: Acute (4) Cellulitis Status: Acute (5) Cellulitis of both feet Status: Acute (6) End stage renal disease Status: Acute (7) PVD (peripheral vascular disease) Status: Acute (8) Type 2 diabetes mellitus with diabetic nephropathy Status: Acute
--- NOTE | 2017-09-21 07:36 | CP.PCM.PN ---
Subjective - Date & Time of Evaluation Date of Evaluation: 09/21/17 Time of Evaluation: 07:34 - Subjective Subjective: Vascular Surgery Progress Note for Dr. Hernandez 62M seen and evaluated this AM. Pt resting comfortably in bed this morning. No acute events overnight. Admits to pain in his lower extremities. Denies f/c, n/v /d, SOB, or CP. Has not ambulated. Objective - Vital Signs/Intake and Output Vital Signs (last 24 hours): Temp Pulse Resp BP Pulse Ox 97.9 F 76 20 132/68 98 09/21/17 00:00 09/21/17 00:00 09/21/17 00:00 09/21/17 00:00 09/21/17 00:00 Intake and Output: 09/21/17 09/21/17 06:59 18:59 Intake Total 200 Balance 200 - Medications Medications: Current Medications Aspirin (Aspirin Chewable) 81 mg PO DAILY [facility] Last Admin: 09/20/17 10:17 Dose: 81 mg Calcium Acetate (Phoslo) 667 mg PO BIDCC [facility] Last Admin: 09/20/17 17:06 Dose: 667 mg Carvedilol (Coreg) 3.125 mg PO BID [facility] Last Admin: 09/20/17 17:06 Dose: 3.125 mg Clopidogrel Bisulfate (Plavix) 75 mg PO DAILY [facility] Last Admin: 09/20/17 10:17 Dose: 75 mg Dextrose (Dextrose 50% Inj) 0 ml IV STAT PRN; Protocol PRN Reason: Hypoglycemia Protocol Dextrose (Glutose 15) 0 gm PO ONCE PRN; Protocol PRN Reason: Hypoglycemia Protocol Glipizide (Glucotrol) 10 mg PO ACB [facility] Last Admin: 09/20/17 08:21 Dose: 10 mg Glucagon (Glucagen Diagnostic Kit) 0 mg IM STAT PRN; Protocol PRN Reason: Hypoglycemia Protocol Heparin Sodium (Porcine) (Heparin) 5,000 units SC Q12 [facility] Last Admin: 09/20/17 21:11 Dose: 5,000 units Home Med (Patient's Own Medication) 1 tab PO DAILY [facility] Last Admin: 09/20/17 10:16 Dose: 1 tab Home Med (Patient's Own Medication) 1 tab PO DAILY [facility] Last Admin: 09/20/17 10:16 Dose: 1 tab Ceftriaxone Sodium 1 gm/ (Sodium Chloride) 100 mls @ 100 mls/hr IVPB Q24H [facility] PRN Reason: Protocol Last Admin: 09/20/17 10:24 Dose: 100 mls/hr Dextrose (Dextrose 5% In Water 1000 Ml) 1,000 mls @ 0 mls/hr IV .Q0M PRN; Protocol; Per Protocol PRN Reason: Hypoglycemia Protocol Vancomycin/Sodium Chloride (Vancomycin 1 Gm/Ns 200 Ml) 1 gm in 200 mls @ 133.333 mls/hr IVPB MWF [facility] PRN Reason: Protocol Stop: 09/26/17 09:01 Insulin Human Regular (Novolin R) 0 unit SC ACHS [facility] PRN Reason: Protocol Last Admin: 09/20/17 21:12 Dose: Not Given Paroxetine HCl (Paxil) 10 mg PO DAILY [facility] Last Admin: 09/20/17 10:17 Dose: 10 mg Rosuvastatin Calcium (Crestor) 20 mg PO HS [facility] Last Admin: 09/20/17 21:11 Dose: 20 mg Saccharomyces Boulardii (Florastor) 250 mg PO BID [facility] Last Admin: 09/20/17 17:07 Dose: 250 mg Sacubitril/Valsartan (Entresto 24 Mg-26 Mg) 1 tab PO BID [facility] Silver Sulfadiazine (Silvadene 1% 20 Gm) 0 ea TOP DAILY [facility] Last Admin: 09/20/17 10:25 Dose: Not Given Tamsulosin HCl (Flomax) 0.4 mg PO DAILY [facility] Last Admin: 09/20/17 10:17 Dose: 0.4 mg - Labs Labs: 09/20/17 07:47 09/20/17 07:47 - Constitutional Appears: Well, Non-toxic, No Acute Distress - Head Exam Head Exam: ATRAUMATIC, NORMAL INSPECTION, NORMOCEPHALIC - Eye Exam Eye Exam: EOMI, Normal appearance - Neck Exam Neck Exam: Full ROM, Normal Inspection. absent: Lymphadenopathy - Respiratory Exam Respiratory Exam: Clear to Ausculation Bilateral, NORMAL BREATHING PATTERN - Cardiovascular Exam Cardiovascular Exam: REGULAR RHYTHM, +S1, +S2. absent: Murmur - GI/Abdominal Exam GI & Abdominal Exam: Soft, Normal Bowel Sounds. absent: Tenderness - Extremities Exam Extremities Exam: Tenderness Additional comments: Lower extremity healing 2nd degree guerrero wrapped in dressings c/d/i - Psychiatric Exam Psychiatric exam: Normal Affect, Normal Mood Assessment and Plan - Assessment and Plan (Free Text) Assessment: 62M 2nd degree guerrero to foot bilaterally Plan: pending CTA - pt would like to consult with Dr. Quevedo before proceeding continue wound care further recs per Dr. David Dillon PGY1
--- NOTE | 2017-09-21 07:58 | CP.PCM.PN ---
Subjective - Date & Time of Evaluation Date of Evaluation: 09/21/17 Time of Evaluation: 07:55 - Subjective Subjective: awaiting cta previous aorto bifemoral graft with muscle flap to groin post op discussed with hurl shaker Dr Disla high risk due to cardiac issues schuyler .5 indicating need for revascularization if foot does not improve Objective - Vital Signs/Intake and Output Vital Signs (last 24 hours): Temp Pulse Resp BP Pulse Ox 97.9 F 76 20 132/68 98 09/21/17 00:00 09/21/17 00:00 09/21/17 00:00 09/21/17 00:00 09/21/17 00:00 Intake and Output: 09/21/17 09/21/17 06:59 18:59 Intake Total 200 Balance 200 - Medications Medications: Current Medications Aspirin (Aspirin Chewable) 81 mg PO DAILY [facility] Last Admin: 09/20/17 10:17 Dose: 81 mg Calcium Acetate (Phoslo) 667 mg PO BIDCC [facility] Last Admin: 09/20/17 17:06 Dose: 667 mg Carvedilol (Coreg) 3.125 mg PO BID [facility] Last Admin: 09/20/17 17:06 Dose: 3.125 mg Clopidogrel Bisulfate (Plavix) 75 mg PO DAILY [facility] Last Admin: 09/20/17 10:17 Dose: 75 mg Dextrose (Dextrose 50% Inj) 0 ml IV STAT PRN; Protocol PRN Reason: Hypoglycemia Protocol Dextrose (Glutose 15) 0 gm PO ONCE PRN; Protocol PRN Reason: Hypoglycemia Protocol Glipizide (Glucotrol) 10 mg PO ACB [facility] Last Admin: 09/20/17 08:21 Dose: 10 mg Glucagon (Glucagen Diagnostic Kit) 0 mg IM STAT PRN; Protocol PRN Reason: Hypoglycemia Protocol Heparin Sodium (Porcine) (Heparin) 5,000 units SC Q12 [facility] Last Admin: 09/20/17 21:11 Dose: 5,000 units Home Med (Patient's Own Medication) 1 tab PO DAILY [facility] Last Admin: 09/20/17 10:16 Dose: 1 tab Home Med (Patient's Own Medication) 1 tab PO DAILY [facility] Last Admin: 09/20/17 10:16 Dose: 1 tab Ceftriaxone Sodium 1 gm/ (Sodium Chloride) 100 mls @ 100 mls/hr IVPB Q24H [facility] PRN Reason: Protocol Last Admin: 09/20/17 10:24 Dose: 100 mls/hr Dextrose (Dextrose 5% In Water 1000 Ml) 1,000 mls @ 0 mls/hr IV .Q0M PRN; Protocol; Per Protocol PRN Reason: Hypoglycemia Protocol Vancomycin/Sodium Chloride (Vancomycin 1 Gm/Ns 200 Ml) 1 gm in 200 mls @ 133.333 mls/hr IVPB MWF [facility] PRN Reason: Protocol Stop: 09/26/17 09:01 Insulin Human Regular (Novolin R) 0 unit SC ACHS [facility] PRN Reason: Protocol Last Admin: 09/20/17 21:12 Dose: Not Given Paroxetine HCl (Paxil) 10 mg PO DAILY [facility] Last Admin: 09/20/17 10:17 Dose: 10 mg Rosuvastatin Calcium (Crestor) 20 mg PO HS [facility] Last Admin: 09/20/17 21:11 Dose: 20 mg Saccharomyces Boulardii (Florastor) 250 mg PO BID [facility] Last Admin: 09/20/17 17:07 Dose: 250 mg Sacubitril/Valsartan (Entresto 24 Mg-26 Mg) 1 tab PO BID [facility] Silver Sulfadiazine (Silvadene 1% 20 Gm) 0 ea TOP DAILY [facility] Last Admin: 09/20/17 10:25 Dose: Not Given Tamsulosin HCl (Flomax) 0.4 mg PO DAILY [facility] Last Admin: 09/20/17 10:17 Dose: 0.4 mg - Labs Labs: 09/20/17 07:47 09/20/17 07:47
[2017-09-21] MEDS: (Novolin R) Insulin Human Regular 100 units/ml vial SC SCH ×4 (08:30→21:10)
[2017-09-21 08:51] LABS: BASO % 0.8 % (0.0-2.0); EOS # 0.2 K/uL (0.0-0.7); EOS % 3.2 % (0.0-4.0); HEMOGLOBIN 10.7 g/dL (12.0-18.0); LYMPH # 0.5 K/uL (1.0-4.3); LYMPH % 7.9 % (20.0-40.0); MEAN CORPUSCULAR HEMOGLOBIN 29.7 pg (27.0-31.0); MEAN PLATELET VOLUME 8.3 fL (7.2-11.7); MONO # 0.6 K/uL (0.0-0.8); MONO % 9.8 % (0.0-10.0); NEUT # 5.1 K/uL (1.8-7.0); NEUT % 78.3 % (50.0-75.0); PLATELET COUNT 134 K/uL (130-400); RED CELL DISTRIBUTION WIDTH 15.6 % (11.5-14.5); WHITE BLOOD COUNT 6.5 K/uL (4.8-10.8)
[2017-09-21 09:02] LABS: ALB/GLOB RATIO 1.3 (1.0-2.1); ALBUMIN 3.6 g/dL (3.5-5.0); CALCIUM 8.9 mg/dl (8.6-10.4)
[2017-09-21] MEDS: Saccharomyces Boulardi 250 mg Cap PO SCH ×2 (09:13→17:43)
[2017-09-21] MEDS: Silver Sulfadiazine 1% Cream (20 gm) TOP SCH (09:13)
[2017-09-21] MEDS: TRADJENTA 5 MG PO SCH (09:13)
[2017-09-21] MEDS: ULORIC 40 MG PO SCH (09:13)
[2017-09-21] MEDS: Vancomycin 1 gm/NS 200 ml 1 GM/200 ML BAG IVPB SCH ×2 (09:14→12:56)
--- NOTE | 2017-09-21 09:14 | CP.PCM.PN ---
<Camacho Aguilar - Last Filed: 09/21/17 09:14> Subjective - Date & Time of Evaluation Date of Evaluation: 09/21/17 Time of Evaluation: 09:14 Objective - Vital Signs/Intake and Output Vital Signs (last 24 hours): Temp Pulse Resp BP Pulse Ox 97.9 F 85 20 134/70 98 09/21/17 08:19 09/21/17 08:19 09/21/17 08:19 09/21/17 08:19 09/21/17 08:19 Intake and Output: 09/21/17 09/21/17 06:59 18:59 Intake Total 200 Balance 200 - Medications Medications: Current Medications Aspirin (Aspirin Chewable) 81 mg PO DAILY [facility] Last Admin: 09/21/17 09:12 Dose: Not Given Calcium Acetate (Phoslo) 667 mg PO BIDCC [facility] Last Admin: 09/21/17 08:25 Dose: 667 mg Carvedilol (Coreg) 3.125 mg PO BID [facility] Last Admin: 09/21/17 09:12 Dose: Not Given Clopidogrel Bisulfate (Plavix) 75 mg PO DAILY [facility] Last Admin: 09/21/17 09:13 Dose: Not Given Dextrose (Dextrose 50% Inj) 0 ml IV STAT PRN; Protocol PRN Reason: Hypoglycemia Protocol Dextrose (Glutose 15) 0 gm PO ONCE PRN; Protocol PRN Reason: Hypoglycemia Protocol Glipizide (Glucotrol) 10 mg PO ACB [facility] Last Admin: 09/21/17 08:25 Dose: 10 mg Glucagon (Glucagen Diagnostic Kit) 0 mg IM STAT PRN; Protocol PRN Reason: Hypoglycemia Protocol Heparin Sodium (Porcine) (Heparin) 5,000 units SC Q12 [facility] Last Admin: 09/21/17 09:13 Dose: Not Given Home Med (Patient's Own Medication) 1 tab PO DAILY [facility] Last Admin: 09/21/17 09:13 Dose: Not Given Home Med (Patient's Own Medication) 1 tab PO DAILY [facility] Last Admin: 09/21/17 09:13 Dose: Not Given Ceftriaxone Sodium 1 gm/ (Sodium Chloride) 100 mls @ 100 mls/hr IVPB Q24H [facility] PRN Reason: Protocol Last Admin: 09/20/17 10:24 Dose: 100 mls/hr Dextrose (Dextrose 5% In Water 1000 Ml) 1,000 mls @ 0 mls/hr IV .Q0M PRN; Protocol; Per Protocol PRN Reason: Hypoglycemia Protocol Vancomycin/Sodium Chloride (Vancomycin 1 Gm/Ns 200 Ml) 1 gm in 200 mls @ 133.333 mls/hr IVPB MWF [facility] PRN Reason: Protocol Stop: 09/26/17 09:01 Insulin Human Regular (Novolin R) 0 unit SC ACHS [facility] PRN Reason: Protocol Last Admin: 09/21/17 08:30 Dose: Not Given Paroxetine HCl (Paxil) 10 mg PO DAILY [facility] Last Admin: 09/21/17 09:13 Dose: Not Given Rosuvastatin Calcium (Crestor) 20 mg PO HS [facility] Last Admin: 09/20/17 21:11 Dose: 20 mg Saccharomyces Boulardii (Florastor) 250 mg PO BID [facility] Last Admin: 09/21/17 09:13 Dose: Not Given Sacubitril/Valsartan (Entresto 24 Mg-26 Mg) 1 tab PO BID [facility] Silver Sulfadiazine (Silvadene 1% 20 Gm) 0 ea TOP DAILY [facility] Last Admin: 09/21/17 09:13 Dose: Not Given Tamsulosin HCl (Flomax) 0.4 mg PO DAILY [facility] Last Admin: 09/21/17 09:12 Dose: Not Given - Labs Labs: 09/21/17 08:41 09/21/17 08:41 <Miguel Ram - Last Filed: 09/21/17 13:27> Subjective - Subjective Subjective: Please see free typed text Objective - Vital Signs/Intake and Output Vital Signs (last 24 hours): Temp Pulse Resp BP Pulse Ox 97.4 F L 82 20 149/86 100 09/21/17 12:15 09/21/17 12:15 09/21/17 12:15 09/21/17 12:15 09/21/17 12:15 Intake and Output: 09/21/17 09/21/17 06:59 18:59 Intake Total 200 Balance 200 - Medications Medications: Current Medications Aspirin (Aspirin Chewable) 81 mg PO DAILY [facility] Last Admin: 09/21/17 09:12 Dose: Not Given [facility] Last Admin: 09/21/17 08:25 Dose: 667 mg Carvedilol (Coreg) 3.125 mg PO BID [facility] Last Admin: 09/21/17 09:12 Dose: Not Given Clopidogrel Bisulfate (Plavix) 75 mg PO DAILY [facility] Last Admin: 09/21/17 09:13 Dose: Not Given Dextrose (Dextrose 50% Inj) 0 ml IV STAT PRN; Protocol PRN Reason: Hypoglycemia Protocol Dextrose (Glutose 15) 0 gm PO ONCE PRN; Protocol PRN Reason: Hypoglycemia Protocol Glipizide (Glucotrol) 10 mg PO ACB [facility] Last Admin: 09/21/17 08:25 Dose: 10 mg Glucagon (Glucagen Diagnostic Kit) 0 mg IM STAT PRN; Protocol PRN Reason: Hypoglycemia Protocol Heparin Sodium (Porcine) (Heparin) 5,000 units SC Q12 [facility] Last Admin: 09/21/17 09:13 Dose: Not Given Home Med (Patient's Own Medication) 1 tab PO DAILY [facility] Last Admin: 09/21/17 09:13 Dose: Not Given Home Med (Patient's Own Medication) 1 tab PO DAILY [facility] Last Admin: 09/21/17 09:13 Dose: Not Given Ceftriaxone Sodium 1 gm/ (Sodium Chloride) 100 mls @ 100 mls/hr IVPB Q24H [facility] PRN Reason: Protocol Last Admin: 09/21/17 09:14 Dose: Not Given Dextrose (Dextrose 5% In Water 1000 Ml) 1,000 mls @ 0 mls/hr IV .Q0M PRN; Protocol; Per Protocol PRN Reason: Hypoglycemia Protocol Vancomycin/Sodium Chloride (Vancomycin 1 Gm/Ns 200 Ml) 1 gm in 200 mls @ 133.333 mls/hr IVPB MWF [facility] PRN Reason: Protocol Stop: 09/26/17 09:01 Last Admin: 09/21/17 09:14 Dose: Not Given Insulin Human Regular (Novolin R) 0 unit SC ACHS [facility] PRN Reason: Protocol Last Admin: 09/21/17 12:30 Dose: Not Given Paroxetine HCl (Paxil) 10 mg PO DAILY [facility] Last Admin: 09/21/17 09:13 Dose: Not Given Rosuvastatin Calcium (Crestor) 10 mg PO HS [facility] Saccharomyces Boulardii (Florastor) 250 mg PO BID [facility] Last Admin: 09/21/17 09:13 Dose: Not Given Sacubitril/Valsartan (Entresto 24 Mg-26 Mg) 1 tab PO BID [facility] Silver Sulfadiazine (Silvadene 1% 20 Gm) 0 ea TOP DAILY [facility] Last Admin: 09/21/17 09:13 Dose: Not Given Tamsulosin HCl (Flomax) 0.4 mg PO DAILY [facility] Last Admin: 09/21/17 09:12 Dose: Not Given - Labs Labs: 09/21/17 08:41 09/21/17 08:41 - Head Exam Additional comments: Please see free typed text Attending/Attestation - Attestation I have personally seen and examined this patient.: Yes I have fully participated in the care of the patient.: Yes I have reviewed all pertinent clinical information, including history, physical exam and plan: Yes Notes (Text): 09/21/17 12:51 Hospitalist Progress Note Patient was seen and examined at 12:40 PM Currently upon FULL ROS: NO chest pain NO SOB/Cough NO abdominal pain NO n/v/d/c NO burning pain with urination NO dysphagia/odynophagia NO lightheadedenss/dizziness (states that this is a chronic issue for him) NO paresthesias NO new changes in visioin NO new changes in hearing NO headache Exam: General: AAOX3, NAD HEENT: NCA, EOMI, PERRLA, NO cervical/supraclavicular/submandibular lymphadenopathy, NO pharyngeal erythema/exudate, Nasal Turbinates are nonerythematous/nonedematous, Oral Mucosa is moist Cardio: NS1 and NS2, NO M/R?G Resp: CTA B/L, NO R/R/W GI: BSx4, Soft, NT, NO HSM, NO guarding/rebound tenderness Ext: Pulses are strong and equal in bilateral UE, palpable bilateral pedal pulses in the bilateral LE however they are weaker than the UE, erythema/warmth have decreased significantly from clearly black demarcated ink on both lower legs, balls of the feet pedal surface were not examined today as bandages were just changed (please refer to Podiatry resident note concerning description of these lesions Neuro: CN II through XII are grossly intact Assesstment and Plan: 1). Bilateral Lower Leg Cellulitis with 3rd Degree Núñez Bilateral Balls of Feet Siliver Sulfadiazine Daily to the balls of the feet Wound Cultures show Gram + and Gram - negative rods: F/U sensitivities Vancomycin 1 gm IV M-W-F and follow up [place] Sunday09/28/17 before 4th dose at time of HD Ceftriaxone 1 gm IV 1x/day ANUSHA shows poor wave form distal to the popliteal arteries (has a history of bilateral femoral stents) Consider vascular intervention should there be worsening or no improvement in the cellulitis Infectious Disease Dr. Frazier Podiatry Dr. Pierce Vascular Surgery Dr. Hernandez: spoke with his Kettle Worker Dr. Lawton who stated that patient is high risk for any vascular procedure considering his cardiac history 2). Hx CAD with Hx CABG and Pacemaker Crestor 10 mg PO 1x/day Coreg 3.125 mg PO 2x/day ASA 81 mg PO 1x/day Plavix 75 mg PO 1x/day Entresto PO 2x/day 3). ESRD on HD via Right Chest Permacath Calcium Acetate 662 mg PO BID Patient is scheduled for AVF consultation with Vascular Surgeon at [facility] on 10/09/[address] Quevedo 4). Hx DM 2 Trajenta 5 mg PO 1x/day Gimepiride 10 mg PO 1x/day Hypoglycmic protocol RISS Low Dose 5). Hx HTN Coreg 3.125 mg PO 2x/day 6). Anemia Likely Secondary to ESRD Monitor HgB/Hct 7). Hx Gout Uloric 40 mg PO 1x/day 8). Hx Depression Paroxetine 10 mg PO 1x/day 9). Hx BPH Flomax 0.4 mg PO 1x/day 10). Prophylaxis Heparin 5,000 units SC Q12H SCDs contraindicated considering the bilateral cellulitis of the legs Florastor 250 mg PO 2x/day Heart Healthy 2 mg Na Low Carb Diet Miguel Ram D.O. 09/21/17 13:24
[2017-09-21 10:21] LABS: BANDS 3 % (0-2); BASOPHIL 1 % (0-2); EOSINOPHIL 3 % (0-4); LYMPHOCYTE 6 % (20-40); MONOCYTE 7 % (0-10); NEUTROPHIL 80 % (50-75); PLATELET ESTIMATE NORMAL (NORMAL); TOTAL CELLS COUNTED 100
[2017-09-21 10:22] LABS: ANISOCYTOSIS SLIGHT; OVALOCYTES SLIGHT
--- NOTE | 2017-09-21 11:43 | CP.PCM.PN ---
Subjective - Date & Time of Evaluation Date of Evaluation: 09/21/17 Time of Evaluation: 11:40 - Subjective Subjective: Podiatry progress note: Dr. Pierce 62 year old male patient was seen and evaluated for bilateral foot burn wounds and cellulitis. Patient evaluated in dialysis. Patient is AAOx3 and appears in NAD. Denies of any pain to the feet. Denies of having acute overnight events. No other pedal complains. Denies F/N/V/C/SOB/CP/headache/diarrhea. Objective - Vital Signs/Intake and Output Vital Signs (last 24 hours): Temp Pulse Resp BP Pulse Ox 97.7 F 84 18 131/78 100 09/21/17 09:15 09/21/17 09:15 09/21/17 09:15 09/21/17 11:15 09/21/17 09:15 Intake and Output: 09/21/17 09/21/17 06:59 18:59 Intake Total 200 Balance 200 - Medications Medications: Current Medications Aspirin (Aspirin Chewable) 81 mg PO DAILY [facility] Last Admin: 09/21/17 09:12 Dose: Not Given Calcium Acetate (Phoslo) 667 mg PO BIDCC [facility] Last Admin: 09/21/17 08:25 Dose: 667 mg Carvedilol (Coreg) 3.125 mg PO BID [facility] Last Admin: 09/21/17 09:12 Dose: Not Given Clopidogrel Bisulfate (Plavix) 75 mg PO DAILY [facility] Last Admin: 09/21/17 09:13 Dose: Not Given Dextrose (Dextrose 50% Inj) 0 ml IV STAT PRN; Protocol PRN Reason: Hypoglycemia Protocol Dextrose (Glutose 15) 0 gm PO ONCE PRN; Protocol PRN Reason: Hypoglycemia Protocol Glipizide (Glucotrol) 10 mg PO ACB [facility] Last Admin: 09/21/17 08:25 Dose: 10 mg Glucagon (Glucagen Diagnostic Kit) 0 mg IM STAT PRN; Protocol PRN Reason: Hypoglycemia Protocol Heparin Sodium (Porcine) (Heparin) 5,000 units SC Q12 [facility] Last Admin: 09/21/17 09:13 Dose: Not Given Home Med (Patient's Own Medication) 1 tab PO DAILY [facility] Last Admin: 09/21/17 09:13 Dose: Not Given Home Med (Patient's Own Medication) 1 tab PO DAILY [facility] Last Admin: 09/21/17 09:13 Dose: Not Given Ceftriaxone Sodium 1 gm/ (Sodium Chloride) 100 mls @ 100 mls/hr IVPB Q24H [facility] PRN Reason: Protocol Last Admin: 09/21/17 09:14 Dose: Not Given Dextrose (Dextrose 5% In Water 1000 Ml) 1,000 mls @ 0 mls/hr IV .Q0M PRN; Protocol; Per Protocol PRN Reason: Hypoglycemia Protocol Vancomycin/Sodium Chloride (Vancomycin 1 Gm/Ns 200 Ml) 1 gm in 200 mls @ 133.333 mls/hr IVPB MWF [facility] PRN Reason: Protocol Stop: 09/26/17 09:01 Last Admin: 09/21/17 09:14 Dose: Not Given Insulin Human Regular (Novolin R) 0 unit SC ACHS [facility] PRN Reason: Protocol Last Admin: 09/21/17 08:30 Dose: Not Given Paroxetine HCl (Paxil) 10 mg PO DAILY [facility] Last Admin: 09/21/17 09:13 Dose: Not Given Rosuvastatin Calcium (Crestor) 10 mg PO [facility] Saccharomyces Boulardii (Florastor) 250 mg PO BID [facility] Last Admin: 09/21/17 09:13 Dose: Not Given Sacubitril/Valsartan (Entresto 24 Mg-26 Mg) 1 tab PO BID [facility] Silver Sulfadiazine (Silvadene 1% 20 Gm) 0 ea TOP DAILY [facility] Last Admin: 09/21/17 09:13 Dose: Not Given Tamsulosin HCl (Flomax) 0.4 mg PO DAILY [facility] Last Admin: 09/21/17 09:12 Dose: Not Given - Labs Labs: 09/21/17 08:41 09/21/17 08:41 - Constitutional Appears: Well, Non-toxic, No Acute Distress - Extremities Exam Additional comments: Bilateral LE exam VASC: DP/PT pulses are very faintly palpable 1/4, Cap refill time: < 3 sec to all digits, Temp gradient: warm to fairly warm from proximal to distal (R>L), no pitting or non-pitting edema noted DERM: Superficial epidermal lysis with healthy grannular tissue on the wound bed noted on the plantar forefoot at the ball of the foot, erythema which extends from the dorsum of the foot proximally towards the knee joint with streaks (R>L) - erythema is decreased to the level of mid leg on the right, no active drainage, no malodor, no probe to bone, no tunneling or tracking NEURO: Protective sensation mildly diminished ORTHO: no pain on palpation of the wounds - Neurological Exam Neurological Exam: Alert, Awake, Oriented x3 - Psychiatric Exam Psychiatric exam: Normal Affect, Normal Mood Assessment and Plan - Assessment and Plan (Free Text) Assessment: 62 year old male was evaluated for 1). plantar forefoot wound secondary to second degree burn 2). Cellulitis Plan: Patient seen and evaluated Discussed plan with attending Dr. Pierce Labs, vitals and charts reviewed - afebrile, no leukocytosis X-rays of the foot reviewed - no acute concern for OM Burn wounds cleaned with saline and dressing applied using silvadine, DSD Wound cultures: G negative rods and G positive cocci - prelim Continue IV abx - Ceftriaxone, Vancomycin ID consult - Dr. Frazier ANUSHA/PVR ordered/reviewed: R- 0.55 and L- 0.61; poor wavefrom distal to popliteus Vascular consult, help appreciated high risk due to cardiac issues, need for revascularization if foot does not improve Podiatry to perform local wound care Podiatry to follow patient while in-house
--- NOTE | 2017-09-21 12:15 | VASCLAB ---
Date of service: 09/20/2017 STUDY DESCRIPTION: HISTORY: poor pedal pulses PRIORS: None. TECHNIQUE: Pulse volume recording waveforms and segmental pressures of bilateral lower extremities at multiple levels were obtained. Ankle Brachial Indices (ABIs) were calculated. Report prepared by NOAH Aceves, RVT RIGHT LOWER EXTREMITY: * Brachial artery: Pressure - 148 mmHg. * High thigh: Pressure - mmHg: Ratio - : PVR waveform - Pulsatile * Low thigh: Pressure - mmHg: Ratio - PVR waveform: Reduced * Calf: Pressure - 100 mmHg: Ratio - 0.68 PVR waveform: Reduced * Posterior tibial Artery: Pressure - 81 mmHg: Ratio - 0.55 PVR waveform: Reduced * Dorsalis pedis Artery: Pressure - 82 mmHg: Ratio - 0.55 PVR waveform: Reduced * Great toe: Pressure - mmHg: Ratio - PVR waveform: Ankle brachial index (ANUSHA): 0.55 LEFT LOWER EXTREMITY: * Brachial artery: Pressure - 141 mmHg. * High thigh: Pressure - mmHg: Ratio - : PVR waveform - Pulsatile * Low thigh: Pressure - mmHg: Ratio - PVR waveform: Pulsatile * Calf: Pressure - 98 mmHg: Ratio - 0.66 PVR waveform: Pulsatile * Posterior tibial Artery: Pressure - 90 mmHg: Ratio - 0.61 PVR waveform: Pulsatile * Dorsalis pedis Artery: Pressure - mmHg: Ratio - PVR waveform: Pulsatile * Great toe: Pressure - mmHg: Ratio - PVR waveform: Ankle brachial index (ANUSHA): 0.61 OTHER FINDINGS: Right: Left: IMPRESSION: This exam reveals moderately decreased perfusion of both lower extremities, noted at the superficial femoral, popliteal, tibial and distal small artery levels.
--- NOTE | 2017-09-21 12:28 | CARD ---
APPROVED REPORT Date of service: 09/19/2017 EKG Measurement Heart [id number] <Conclusion> Sinus rhythm with occasional premature ventricular complexes Right bundle branch block Abnormal ECG
--- NOTE | 2017-09-21 12:35 | CP.PCM.PN ---
Subjective - Date & Time of Evaluation Date of Evaluation: 09/21/17 Time of Evaluation: 12:33 - Subjective Subjective: feels well, no complaints s/p hd 10 point ROS obtained, negative except for minor foor pain Objective - Vital Signs/Intake and Output Vital Signs (last 24 hours): Temp Pulse Resp BP Pulse Ox 97.4 F L 82 20 149/86 100 09/21/17 12:15 09/21/17 12:15 09/21/17 12:15 09/21/17 12:15 09/21/17 12:15 Intake and Output: 09/21/17 09/21/17 06:59 18:59 Intake Total 200 Balance 200 - Medications Medications: Current Medications Aspirin (Aspirin Chewable) 81 mg PO DAILY [facility] Last Admin: 09/21/17 09:12 Dose: Not Given Calcium Acetate (Phoslo) 667 mg PO BIDCC [facility] Last Admin: 09/21/17 08:25 Dose: 667 mg Carvedilol (Coreg) 3.125 mg PO BID [facility] Last Admin: 09/21/17 09:12 Dose: Not Given Clopidogrel Bisulfate (Plavix) 75 mg PO DAILY [facility] Last Admin: 09/21/17 09:13 Dose: Not Given Dextrose (Dextrose 50% Inj) 0 ml IV STAT PRN; Protocol PRN Reason: Hypoglycemia Protocol Dextrose (Glutose 15) 0 gm PO ONCE PRN; Protocol PRN Reason: Hypoglycemia Protocol Glipizide (Glucotrol) 10 mg PO ACB [facility] Last Admin: 09/21/17 08:25 Dose: 10 mg Glucagon (Glucagen Diagnostic Kit) 0 mg IM STAT PRN; Protocol PRN Reason: Hypoglycemia Protocol Heparin Sodium (Porcine) (Heparin) 5,000 units SC Q12 [facility] Last Admin: 09/21/17 09:13 Dose: Not Given Home Med (Patient's Own Medication) 1 tab PO DAILY [facility] Last Admin: 09/21/17 09:13 Dose: Not Given Home Med (Patient's Own Medication) 1 tab PO DAILY [facility] Last Admin: 09/21/17 09:13 Dose: Not Given Ceftriaxone Sodium 1 gm/ (Sodium Chloride) 100 mls @ 100 mls/hr IVPB Q24H [facility] PRN Reason: Protocol Last Admin: 09/21/17 09:14 Dose: Not Given Dextrose (Dextrose 5% In Water 1000 Ml) 1,000 mls @ 0 mls/hr IV .Q0M PRN; Protocol; Per Protocol PRN Reason: Hypoglycemia Protocol Vancomycin/Sodium Chloride (Vancomycin 1 Gm/Ns 200 Ml) 1 gm in 200 mls @ 133.333 mls/hr IVPB MWF [facility] PRN Reason: Protocol Stop: 09/26/17 09:01 Last Admin: 09/21/17 09:14 Dose: Not Given Insulin Human Regular (Novolin R) 0 unit SC ACHS [facility] PRN Reason: Protocol Last Admin: 09/21/17 08:30 Dose: Not Given Paroxetine HCl (Paxil) 10 mg PO DAILY [facility] Last Admin: 09/21/17 09:13 Dose: Not Given Rosuvastatin Calcium (Crestor) 10 mg PO [facility] Saccharomyces Boulardii (Florastor) 250 mg PO BID [facility] Last Admin: 09/21/17 09:13 Dose: Not Given Sacubitril/Valsartan (Entresto 24 Mg-26 Mg) 1 tab PO BID [facility] Silver Sulfadiazine (Silvadene 1% 20 Gm) 0 ea TOP DAILY [facility] Last Admin: 09/21/17 09:13 Dose: Not Given Tamsulosin HCl (Flomax) 0.4 mg PO DAILY [facility] Last Admin: 09/21/17 09:12 Dose: Not Given - Labs Labs: 09/21/17 08:41 09/21/17 08:41 - Constitutional Appears: Non-toxic, No Acute Distress - Head Exam Head Exam: NORMAL INSPECTION, NORMOCEPHALIC - Eye Exam Eye Exam: Normal appearance - ENT Exam ENT Exam: Mucous Membranes Moist, Normal Exam - Neck Exam Neck Exam: Full ROM, Normal Inspection - Respiratory Exam Respiratory Exam: Clear to Ausculation Bilateral, NORMAL BREATHING PATTERN - Cardiovascular Exam Cardiovascular Exam: REGULAR RHYTHM, RRR Additional comments: rt chest permcath - GI/Abdominal Exam GI & Abdominal Exam: Distended, Soft - Extremities Exam Extremities Exam: Full ROM, Normal Inspection Additional comments: b/l feet in dressing - Neurological Exam Neurological Exam: Alert, Awake, Oriented x3 - Psychiatric Exam Psychiatric exam: Normal Affect, Normal Mood - Skin Skin Exam: Dry, Intact Assessment and Plan (1) Burn, foot, second degree Status: Acute (2) CAD (coronary artery disease) Status: Acute (3) Cellulitis of both feet Status: Acute (4) End stage renal disease Status: Acute (5) PVD (peripheral vascular disease) Status: Acute (6) Type 2 diabetes mellitus with diabetic nephropathy Status: Acute - Assessment and Plan (Free Text) Assessment: maintain hd mwf, 3K bath antibiotics for foot cellulitis possible angioplasty bp acceptable hgb at goal
--- NOTE | 2017-09-21 14:23 | CP.PCM.PN ---
Subjective - Date & Time of Evaluation Date of Evaluation: 09/21/17 Time of Evaluation: 13:30 Objective - Vital Signs/Intake and Output Vital Signs (last 24 hours): Temp Pulse Resp BP Pulse Ox 97.4 F L 82 20 149/86 100 09/21/17 12:15 09/21/17 12:15 09/21/17 12:15 09/21/17 12:15 09/21/17 12:15 Intake and Output: 09/21/17 09/21/17 06:59 18:59 Intake Total 200 Balance 200 - Medications Medications: Current Medications Aspirin (Aspirin Chewable) 81 mg PO DAILY [facility] Last Admin: 09/21/17 09:12 Dose: Not Given Calcium Acetate (Phoslo) 667 mg PO BIDCC [facility] Last Admin: 09/21/17 08:25 Dose: 667 mg Carvedilol (Coreg) 3.125 mg PO BID [facility] Last Admin: 09/21/17 09:12 Dose: Not Given Clopidogrel Bisulfate (Plavix) 75 mg PO DAILY [facility] Last Admin: 09/21/17 09:13 Dose: Not Given Dextrose (Dextrose 50% Inj) 0 ml IV STAT PRN; Protocol PRN Reason: Hypoglycemia Protocol Dextrose (Glutose 15) 0 gm PO ONCE PRN; Protocol PRN Reason: Hypoglycemia Protocol Glipizide (Glucotrol) 10 mg PO ACB [facility] Last Admin: 09/21/17 08:25 Dose: 10 mg Glucagon (Glucagen Diagnostic Kit) 0 mg IM STAT PRN; Protocol PRN Reason: Hypoglycemia Protocol Heparin Sodium (Porcine) (Heparin) 5,000 units SC Q12 [facility] Last Admin: 09/21/17 09:13 Dose: Not Given Home Med (Patient's Own Medication) 1 tab PO DAILY [facility] Last Admin: 09/21/17 09:13 Dose: Not Given Home Med (Patient's Own Medication) 1 tab PO DAILY [facility] Last Admin: 09/21/17 09:13 Dose: Not Given Ceftriaxone Sodium 1 gm/ (Sodium Chloride) 100 mls @ 100 mls/hr IVPB Q24H [facility] PRN Reason: Protocol Last Admin: 09/21/17 09:14 Dose: Not Given Dextrose (Dextrose 5% In Water 1000 Ml) 1,000 mls @ 0 mls/hr IV .Q0M PRN; Protocol; Per Protocol PRN Reason: Hypoglycemia Protocol Vancomycin/Sodium Chloride (Vancomycin 1 Gm/Ns 200 Ml) 1 gm in 200 mls @ 133.333 mls/hr IVPB MWF [facility] PRN Reason: Protocol Stop: 09/26/17 09:01 Last Admin: 09/21/17 12:56 Dose: 133.333 mls/hr Insulin Human Regular (Novolin R) 0 unit SC ACHS [facility] PRN Reason: Protocol Last Admin: 09/21/17 12:30 Dose: Not Given Paroxetine HCl (Paxil) 10 mg PO DAILY [facility] Last Admin: 09/21/17 09:13 Dose: Not Given Rosuvastatin Calcium (Crestor) 10 mg PO [facility] Saccharomyces Boulardii (Florastor) 250 mg PO BID [facility] Last Admin: 09/21/17 09:13 Dose: Not Given Sacubitril/Valsartan (Entresto 24 Mg-26 Mg) 1 tab PO BID [facility] Silver Sulfadiazine (Silvadene 1% 20 Gm) 0 ea TOP DAILY [facility] Last Admin: 09/21/17 09:13 Dose: Not Given Tamsulosin HCl (Flomax) 0.4 mg PO DAILY [facility] Last Admin: 09/21/17 09:12 Dose: Not Given - Labs Labs: 09/21/17 08:41 09/21/17 08:41
--- NOTE | 2017-09-21 16:34 | CP.PCM.PN ---
Subjective - Date & Time of Evaluation Date of Evaluation: 09/21/17 Time of Evaluation: 09:00 - Subjective Subjective: c/o foot pain + ascending cellulitis await cultures Objective - Vital Signs/Intake and Output Vital Signs (last 24 hours): Temp Pulse Resp BP Pulse Ox 97.4 F L 82 20 149/86 100 09/21/17 12:15 09/21/17 12:15 09/21/17 12:15 09/21/17 12:15 09/21/17 12:15 Intake and Output: 09/21/17 09/21/17 06:59 18:59 Intake Total 200 560 Balance 200 560 - Medications Medications: Current Medications Aspirin (Aspirin Chewable) 81 mg PO DAILY [facility] Last Admin: 09/21/17 09:12 Dose: Not Given Calcium Acetate (Phoslo) 667 mg PO BIDCC [facility] Last Admin: 09/21/17 08:25 Dose: 667 mg Carvedilol (Coreg) 3.125 mg PO BID [facility] Last Admin: 09/21/17 09:12 Dose: Not Given Clopidogrel Bisulfate (Plavix) 75 mg PO DAILY [facility] Last Admin: 09/21/17 09:13 Dose: Not Given Dextrose (Dextrose 50% Inj) 0 ml IV STAT PRN; Protocol PRN Reason: Hypoglycemia Protocol Dextrose (Glutose 15) 0 gm PO ONCE PRN; Protocol PRN Reason: Hypoglycemia Protocol Glipizide (Glucotrol) 10 mg PO ACB [facility] Last Admin: 09/21/17 08:25 Dose: 10 mg Glucagon (Glucagen Diagnostic Kit) 0 mg IM STAT PRN; Protocol PRN Reason: Hypoglycemia Protocol Heparin Sodium (Porcine) (Heparin) 5,000 units SC Q12 [facility] Last Admin: 09/21/17 09:13 Dose: Not Given Home Med (Patient's Own Medication) 1 tab PO DAILY [facility] Last Admin: 09/21/17 09:13 Dose: Not Given Home Med (Patient's Own Medication) 1 tab PO DAILY [facility] Last Admin: 09/21/17 09:13 Dose: Not Given Ceftriaxone Sodium 1 gm/ (Sodium Chloride) 100 mls @ 100 mls/hr IVPB Q24H [facility] PRN Reason: Protocol Last Admin: 09/21/17 09:14 Dose: Not Given Dextrose (Dextrose 5% In Water 1000 Ml) 1,000 mls @ 0 mls/hr IV .Q0M PRN; Protocol; Per Protocol PRN Reason: Hypoglycemia Protocol Vancomycin/Sodium Chloride (Vancomycin 1 Gm/Ns 200 Ml) 1 gm in 200 mls @ 133.333 mls/hr IVPB MWF [facility] PRN Reason: Protocol Stop: 09/26/17 09:01 Last Admin: 09/21/17 12:56 Dose: 133.333 mls/hr Insulin Human Regular (Novolin R) 0 unit SC ACHS [facility] PRN Reason: Protocol Last Admin: 09/21/17 12:30 Dose: Not Given Paroxetine HCl (Paxil) 10 mg PO DAILY [facility] Last Admin: 09/21/17 09:13 Dose: Not Given Rosuvastatin Calcium (Crestor) 10 mg PO [facility] Saccharomyces Boulardii (Florastor) 250 mg PO BID [facility] Last Admin: 09/21/17 09:13 Dose: Not Given Sacubitril/Valsartan (Entresto 24 Mg-26 Mg) 1 tab PO BID [facility] Silver Sulfadiazine (Silvadene 1% 20 Gm) 0 ea TOP DAILY [facility] Last Admin: 09/21/17 09:13 Dose: Not Given Tamsulosin HCl (Flomax) 0.4 mg PO DAILY [facility] Last Admin: 09/21/17 09:12 Dose: Not Given - Labs Labs: 09/21/17 08:41 09/21/17 08:41 - Constitutional Appears: Non-toxic, Chronically Ill - Head Exam Head Exam: NORMOCEPHALIC - Eye Exam Eye Exam: absent: Scleral icterus - ENT Exam ENT Exam: Mucous Membranes Dry - Neck Exam Neck Exam: absent: Lymphadenopathy - Respiratory Exam Respiratory Exam: Decreased Breath Sounds - Cardiovascular Exam Cardiovascular Exam: REGULAR RHYTHM - GI/Abdominal Exam GI & Abdominal Exam: Distended, Soft Assessment and Plan (1) Burn, foot, second degree Status: Acute (2) Guerrero involv 10-19% of body surface w/less than 10% third degree guerrero Status: Acute (3) CAD (coronary artery disease) Status: Acute (4) Cellulitis Status: Acute (5) Cellulitis of both feet Status: Acute (6) End stage renal disease Status: Acute (7) PVD (peripheral vascular disease) Status: Acute (8) Type 2 diabetes mellitus with diabetic nephropathy Status: Acute
--- NOTE | 2017-09-22 03:58 | CP.PCM.PN ---
Subjective - Date & Time of Evaluation Date of Evaluation: 09/22/17 Time of Evaluation: 03:58 - Subjective Subjective: PGY-[address] Ram, Patient is seen and examined at bedside. Patient reports having bilateral foot and sole pain, described as 7/10. Patient has recently burned his soles while walking on hot pavement at [facility]. Patient denies fevers, chills, shortness of breath, chest pain, abdominal pain, nausea, vomiting, constipation or diarrhea Objective - Vital Signs/Intake and Output Vital Signs (last 24 hours): Temp Pulse Resp BP Pulse Ox 98.1 F 98 H 20 124/66 97 09/21/17 23:46 09/21/17 23:46 09/21/17 23:46 09/21/17 23:46 09/21/17 23:46 Intake and Output: 09/21/17 09/22/17 18:59 06:59 Intake Total 560 Balance 560 - Medications Medications: Current Medications Aspirin (Aspirin Chewable) 81 mg PO DAILY [facility] Last Admin: 09/21/17 09:12 Dose: Not Given Calcium Acetate (Phoslo) 667 mg PO BIDCC [facility] Last Admin: 09/21/17 17:42 Dose: 667 mg Carvedilol (Coreg) 3.125 mg PO BID [facility] Last Admin: 09/21/17 17:42 Dose: 3.125 mg Clopidogrel Bisulfate (Plavix) 75 mg PO DAILY [facility] Last Admin: 09/21/17 09:13 Dose: Not Given Dextrose (Dextrose 50% Inj) 0 ml IV STAT PRN; Protocol PRN Reason: Hypoglycemia Protocol Dextrose (Glutose 15) 0 gm PO ONCE PRN; Protocol PRN Reason: Hypoglycemia Protocol Gabapentin (Neurontin) 100 mg PO DAILY PRN PRN Reason: Pain, Mild (1-3) Glipizide (Glucotrol) 10 mg PO ACB [facility] Last Admin: 09/21/17 08:25 Dose: 10 mg Glucagon (Glucagen Diagnostic Kit) 0 mg IM STAT PRN; Protocol PRN Reason: Hypoglycemia Protocol Heparin Sodium (Porcine) (Heparin) 5,000 units SC Q12 [facility] Last Admin: 09/21/17 21:10 Dose: 5,000 units Home Med (Patient's Own Medication) 1 tab PO DAILY [facility] Last Admin: 09/21/17 09:13 Dose: Not Given Home Med (Patient's Own Medication) 1 tab PO DAILY [facility] Last Admin: 09/21/17 09:13 Dose: Not Given Ceftriaxone Sodium 1 gm/ (Sodium Chloride) 100 mls @ 100 mls/hr IVPB Q24H [facility] PRN Reason: Protocol Last Admin: 09/21/17 09:14 Dose: Not Given Dextrose (Dextrose 5% In Water 1000 Ml) 1,000 mls @ 0 mls/hr IV .Q0M PRN; Protocol; Per Protocol PRN Reason: Hypoglycemia Protocol Vancomycin/Sodium Chloride (Vancomycin 1 Gm/Ns 200 Ml) 1 gm in 200 mls @ 133.333 mls/hr IVPB MWF [facility] PRN Reason: Protocol Stop: 09/26/17 09:01 Last Admin: 09/21/17 12:56 Dose: 133.333 mls/hr Insulin Human Regular (Novolin R) 0 unit SC ACHS [facility] PRN Reason: Protocol Last Admin: 09/21/17 21:10 Dose: Not Given Paroxetine HCl (Paxil) 10 mg PO DAILY [facility] Last Admin: 09/21/17 09:13 Dose: Not Given Rosuvastatin Calcium (Crestor) 10 mg PO HS [facility] Last Admin: 09/21/17 21:10 Dose: 10 mg Saccharomyces Boulardii (Florastor) 250 mg PO BID [facility] Last Admin: 09/21/17 17:43 Dose: 250 mg Sacubitril/Valsartan (Entresto 24 Mg-26 Mg) 1 tab PO BID [facility] Silver Sulfadiazine (Silvadene 1% 20 Gm) 0 ea TOP DAILY [facility] Last Admin: 09/21/17 09:13 Dose: Not Given Tamsulosin HCl (Flomax) 0.4 mg PO DAILY [facility] Last Admin: 09/21/17 09:12 Dose: Not Given - Labs Labs: 09/21/17 08:41 09/21/17 08:41 - Constitutional Appears: Well, Non-toxic, No Acute Distress - Head Exam Head Exam: ATRAUMATIC, NORMOCEPHALIC - Eye Exam Eye Exam: EOMI, Normal appearance, PERRL - Neck Exam Neck Exam: Full ROM, Normal Inspection - Respiratory Exam Respiratory Exam: Clear to Ausculation Bilateral, NORMAL BREATHING PATTERN. absent: Rales, Rhonchi, Wheezes - Cardiovascular Exam Cardiovascular Exam: REGULAR RHYTHM, +S1, +S2 - GI/Abdominal Exam GI & Abdominal Exam: Soft, Normal Bowel Sounds. absent: Distended, Firm, Rigid , Tenderness - Extremities Exam Extremities Exam: Full ROM Additional comments: right and left feet wrapped in bandaged on the anterior sole area. bandage is dry, clean, nonpurelent, nonbloody - Psychiatric Exam Psychiatric exam: Normal Affect, Normal Mood - Skin Skin Exam: Dry, Intact Assessment and Plan - Assessment and Plan (Free Text) Plan: Assesstment and Plan: 1). Bilateral Lower Leg Cellulitis with 3rd Degree Núñez Bilateral Balls of Feet afebrile, no leukocytosis 09/19 Wound Cultures show Right foot Gram + and Gram - negative rods, Left Foot Gram - Rods: F/U sensitivities 09/19 Blood Culture: Preliminary no growth after 48 hours Meds: - Vancomycin 1 gm IV and follow up [place] Sunday09/28/17 before 4th dose at time of HD - Ceftriaxone 1 gm IV 1x/day - Silver sulfadiazine 1% 20 mg Qdaily Infect[address] Disease Dr. Frazier - F/U recs Podiatry Dr. Pierce - will perform local wound care Vascular Surgery Dr. Hernandez: spoke with his Lead Java Developer Architect Dr. Lawton who stated that patient is high risk for any vascular procedure considering his cardiac history ANUSHA shows poor wave form distal to the popliteal arteries (has a history of bilateral femoral stents) 09/22 AM bilateral foot pain: ordered 300 mg PO ONCE. Pt received 100mg PO ONCE at 4pm on 09/21. Consider pain medication to be taken PRN based on patient's renal function. 2). Hx CAD with Hx CABG and Pacemaker Crestor 10 mg PO 1x/day Coreg 3.125 mg PO 2x/day ASA 81 mg PO 1x/day Plavix 75 mg PO 1x/day Entresto 24/ PO 2x/day 3). ESRD on HD via Right Chest Permacath Calcium Acetate 667 mg PO BID Patient is scheduled for AVF consultation with Vascular Surgeon at [facility] on 10/09/[address] Quevedo- f/u recs 4). Hx DM 2 Trajenta 5 mg PO 1x/day Gimepiride 10 mg PO 1x/day Hypoglycmic protocol RISS Low Dose 5). Hx HTN Coreg 3.125 mg PO 2x/day 6). Anemia Likely Secondary to ESRD 09/21: Hb - 10.7 Monitor HgB/Hct 7). Hx Gout Uloric 40 mg PO 1x/day 8). Hx Depression Paroxetine 10 mg PO 1x/day 9). Hx BPH Flomax 0.4 mg PO 1x/day 10). Prophylaxis Heparin 5,000 units SC Q12H [facility] contraindicated due to the bilateral cellulitis of the legs Florastor 250 mg PO 2x/day Heart Healthy 2 mg Na Low Carb Diet
[2017-09-22 07:05] LABS: BASO # 0.1 K/uL (0.0-0.2); BASO % 2.1 % (0.0-2.0); EOS # 0.3 K/uL (0.0-0.7); EOS % 3.8 % (0.0-4.0); HEMOGLOBIN 11.4 g/dL (12.0-18.0); LYMPH % 14.5 % (20.0-40.0); MEAN CELL VOLUME 86.1 fL (80.0-94.0); MEAN CORPUSCULAR HEMOGLOBIN 29.4 pg (27.0-31.0); MEAN CORPUSCULAR HGB CONC 34.2 g/dL (33.0-37.0); MEAN PLATELET VOLUME 7.7 fL (7.2-11.7); MONO # 0.8 K/uL (0.0-0.8); MONO % 12.7 % (0.0-10.0); NEUT # 4.4 K/uL (1.8-7.0); NEUT % 66.9 % (50.0-75.0); NRBC % 0.1 % (0.0-2.0); RBC 3.88 Mil/uL (4.40-5.90); RED CELL DISTRIBUTION WIDTH 15.4 % (11.5-14.5); WHITE BLOOD COUNT 6.6 K/uL (4.8-10.8)
[2017-09-22 07:27] LABS: ALB/GLOB RATIO 1.2 (1.0-2.1); ALBUMIN 3.6 g/dL (3.5-5.0); CALCIUM 8.6 mg/dl (8.6-10.4)
--- NOTE | 2017-09-22 07:47 | CP.PCM.PN ---
Subjective - Date & Time of Evaluation Date of Evaluation: 09/22/17 Time of Evaluation: 07:45 - Subjective Subjective: Vascular Surgery Progress Note for Dr. Hernandez Pt seen and examined this Am at bedside. He is refusing CTA at this time. Complaining of pain on lower extremity otherwise no new complaints at this time. Objective - Vital Signs/Intake and Output Vital Signs (last 24 hours): Temp Pulse Resp BP Pulse Ox 98.1 F 98 H 20 124/66 97 09/21/17 23:46 09/21/17 23:46 09/21/17 23:46 09/21/17 23:46 09/21/17 23:46 Intake and Output: 09/22/17 09/22/17 06:59 18:59 Intake Total 240 Balance 240 - Medications Medications: Current Medications Aspirin (Aspirin Chewable) 81 mg PO DAILY [facility] Last Admin: 09/21/17 09:12 Dose: Not Given Calcium Acetate (Phoslo) 667 mg PO BIDCC [facility] Last Admin: 09/21/17 17:42 Dose: 667 mg Carvedilol (Coreg) 3.125 mg PO BID [facility] Last Admin: 09/21/17 17:42 Dose: 3.125 mg Clopidogrel Bisulfate (Plavix) 75 mg PO DAILY [facility] Last Admin: 09/21/17 09:13 Dose: Not Given Dextrose (Dextrose 50% Inj) 0 ml IV STAT PRN; Protocol PRN Reason: Hypoglycemia Protocol Dextrose (Glutose 15) 0 gm PO ONCE PRN; Protocol PRN Reason: Hypoglycemia Protocol Gabapentin (Neurontin) 100 mg PO DAILY PRN PRN Reason: Pain, Mild (1-3) Glipizide (Glucotrol) 10 mg PO ACB [facility] Last Admin: 09/21/17 08:25 Dose: 10 mg Glucagon (Glucagen Diagnostic Kit) 0 mg IM STAT PRN; Protocol PRN Reason: Hypoglycemia Protocol Heparin Sodium (Porcine) (Heparin) 5,000 units SC Q12 [facility] Last Admin: 09/21/17 21:10 Dose: 5,000 units Home Med (Patient's Own Medication) 1 tab PO DAILY [facility] Last Admin: 09/21/17 09:13 Dose: Not Given Home Med (Patient's Own Medication) 1 tab PO DAILY [facility] Last Admin: 09/21/17 09:13 Dose: Not Given Ceftriaxone Sodium 1 gm/ (Sodium Chloride) 100 mls @ 100 mls/hr IVPB Q24H [facility] PRN Reason: Protocol Last Admin: 09/21/17 09:14 Dose: Not Given Dextrose (Dextrose 5% In Water 1000 Ml) 1,000 mls @ 0 mls/hr IV .Q0M PRN; Protocol; Per Protocol PRN Reason: Hypoglycemia Protocol Vancomycin/Sodium Chloride (Vancomycin 1 Gm/Ns 200 Ml) 1 gm in 200 mls @ 133.333 mls/hr IVPB MWF [facility] PRN Reason: Protocol Stop: 09/26/17 09:01 Last Admin: 09/21/17 12:56 Dose: 133.333 mls/hr Insulin Human Regular (Novolin R) 0 unit SC ACHS [facility] PRN Reason: Protocol Last Admin: 09/21/17 21:10 Dose: Not Given Paroxetine HCl (Paxil) 10 mg PO DAILY [facility] Last Admin: 09/21/17 09:13 Dose: Not Given Rosuvastatin Calcium (Crestor) 10 mg PO HS [facility] Last Admin: 09/21/17 21:10 Dose: 10 mg Saccharomyces Boulardii (Florastor) 250 mg PO BID [facility] Last Admin: 09/21/17 17:43 Dose: 250 mg Sacubitril/Valsartan (Entresto 24 Mg-26 Mg) 1 tab PO BID [facility] Silver Sulfadiazine (Silvadene 1% 20 Gm) 0 ea TOP DAILY [facility] Last Admin: 09/21/17 09:13 Dose: Not Given Tamsulosin HCl (Flomax) 0.4 mg PO DAILY [facility] Last Admin: 09/21/17 09:12 Dose: Not Given - Labs Labs: 09/22/17 07:00 09/22/17 07:00 - Constitutional Appears: Non-toxic, No Acute Distress - Head Exam Head Exam: ATRAUMATIC, NORMOCEPHALIC - Eye Exam Eye Exam: EOMI - Respiratory Exam Respiratory Exam: NORMAL BREATHING PATTERN - Extremities Exam Additional comments: dressing clean dry and intact Assessment and Plan - Assessment and Plan (Free Text) Assessment: 62M with lower extremity guerrero and PAD Refusing cta No surgical management at this time D/W Dr. David Schilling PGY3
[2017-09-22] MEDS: (Novolin R) Insulin Human Regular 100 units/ml vial SC SCH ×4 (08:09→22:53)
--- NOTE | 2017-09-22 08:50 | CP.PCM.PN ---
Subjective - Date & Time of Evaluation Date of Evaluation: 09/22/17 Time of Evaluation: 08:50 - Subjective Subjective: afebrile bp normal to low comfortable in bed ate entire breakfast ROS entirely negative except for feet pain Objective - Vital Signs/Intake and Output Vital Signs (last 24 hours): Temp Pulse Resp BP Pulse Ox 97.3 F L 99 H 20 100/71 96 09/22/17 08:24 09/22/17 08:24 09/22/17 08:24 09/22/17 08:24 09/22/17 08:24 Intake and Output: 09/22/17 09/22/17 06:59 18:59 Intake Total 240 Balance 240 - Medications Medications: Current Medications Aspirin (Aspirin Chewable) 81 mg PO DAILY [facility] Last Admin: 09/21/17 09:12 Dose: Not Given [facility] Last Admin: 09/22/17 08:13 Dose: 667 mg Carvedilol (Coreg) 3.125 mg PO BID [facility] Last Admin: 09/21/17 17:42 Dose: 3.125 mg Clopidogrel Bisulfate (Plavix) 75 mg PO DAILY [facility] Last Admin: 09/21/17 09:13 Dose: Not Given Dextrose (Dextrose 50% Inj) 0 ml IV STAT PRN; Protocol PRN Reason: Hypoglycemia Protocol Dextrose (Glutose 15) 0 gm PO ONCE PRN; Protocol PRN Reason: Hypoglycemia Protocol Gabapentin (Neurontin) 100 mg PO DAILY PRN PRN Reason: Pain, Mild (1-3) Glipizide (Glucotrol) 10 mg PO ACB [facility] Last Admin: 09/22/17 08:13 Dose: 10 mg Glucagon (Glucagen Diagnostic Kit) 0 mg IM STAT PRN; Protocol PRN Reason: Hypoglycemia Protocol Heparin Sodium (Porcine) (Heparin) 5,000 units SC Q12 [facility] Last Admin: 09/21/17 21:10 Dose: 5,000 units Home Med (Patient's Own Medication) 1 tab PO DAILY [facility] Last Admin: 09/21/17 09:13 Dose: Not Given Home Med (Patient's Own Medication) 1 tab PO DAILY [facility] Last Admin: 09/21/17 09:13 Dose: Not Given Ceftriaxone Sodium 1 gm/ (Sodium Chloride) 100 mls @ 100 mls/hr IVPB Q24H [facility] PRN Reason: Protocol Last Admin: 09/21/17 09:14 Dose: Not Given Dextrose (Dextrose 5% In Water 1000 Ml) 1,000 mls @ 0 mls/hr IV .Q0M PRN; Protocol; Per Protocol PRN Reason: Hypoglycemia Protocol Vancomycin/Sodium Chloride (Vancomycin 1 Gm/Ns 200 Ml) 1 gm in 200 mls @ 133.333 mls/hr IVPB MWF [facility] PRN Reason: Protocol Stop: 09/26/17 09:01 Last Admin: 09/21/17 12:56 Dose: 133.333 mls/hr Insulin Human Regular (Novolin R) 0 unit SC ACHS [facility] PRN Reason: Protocol Last Admin: 09/22/17 08:09 Dose: Not Given Paroxetine HCl (Paxil) 10 mg PO DAILY [facility] Last Admin: 09/21/17 09:13 Dose: Not Given Rosuvastatin Calcium (Crestor) 10 mg PO HS [facility] Last Admin: 09/21/17 21:10 Dose: 10 mg Saccharomyces Boulardii (Florastor) 250 mg PO BID [facility] Last Admin: 09/21/17 17:43 Dose: 250 mg Sacubitril/Valsartan (Entresto 24 Mg-26 Mg) 1 tab PO BID [facility] Silver Sulfadiazine (Silvadene 1% 20 Gm) 0 ea TOP DAILY [facility] Last Admin: 09/21/17 09:13 Dose: Not Given Tamsulosin HCl (Flomax) 0.4 mg PO DAILY [facility] Last Admin: 09/21/17 09:12 Dose: Not Given - Labs Labs: 09/22/17 07:00 09/22/17 07:00 - Constitutional Appears: No Acute Distress - ENT Exam ENT Exam: Mucous Membranes Moist - Respiratory Exam Respiratory Exam: Clear to Ausculation Bilateral - Cardiovascular Exam Cardiovascular Exam: REGULAR RHYTHM - GI/Abdominal Exam GI & Abdominal Exam: Soft. absent: Distended, Tenderness - Extremities Exam Extremities Exam: absent: Calf Tenderness - Back Exam Back Exam: absent: CVA tenderness (L), CVA tenderness (R) - Neurological Exam Neurological Exam: Alert - Psychiatric Exam Psychiatric exam: Normal Affect - Skin Skin Exam: Dry Assessment and Plan (1) Burn, foot, second degree Status: Acute (2) CAD (coronary artery disease) Status: Acute (3) End stage renal disease Status: Acute - Assessment and Plan (Free Text) Plan: next dialysis tentatively scheduled for 09/24
[2017-09-22] MEDS: TRADJENTA 5 MG PO SCH (10:18)
[2017-09-22] MEDS: Saccharomyces Boulardi 250 mg Cap PO SCH ×2 (10:18→17:15)
[2017-09-22] MEDS: Silver Sulfadiazine 1% Cream (20 gm) TOP SCH (10:19)
[2017-09-22] MEDS: ULORIC 40 MG PO SCH (10:24)
--- NOTE | 2017-09-22 11:18 | CP.PCM.PN ---
Subjective - Date & Time of Evaluation Date of Evaluation: 09/22/17 Time of Evaluation: 11:14 - Subjective Subjective: Podiatry progress note: Dr. Pierce 62 year old male patient was seen and evaluated with attending Dr. Pierce for bilateral foot burn wounds and cellulitis. Patient is AAOx3 and appears in NAD. Reports that he has little pain to his feet today. Denies of having acute overnight events. No other pedal complains. Denies F/N/V/C/SOB/CP/headache/ diarrhea. Objective - Vital Signs/Intake and Output Vital Signs (last 24 hours): Temp Pulse Resp BP Pulse Ox 97.3 F L 85 20 156/83 H 96 09/22/17 08:24 09/22/17 10:27 09/22/17 08:24 09/22/17 10:27 09/22/17 08:24 Intake and Output: 09/22/17 09/22/17 06:59 18:59 Intake Total 240 Balance 240 - Medications Medications: Current Medications Aspirin (Aspirin Chewable) 81 mg PO DAILY [facility] Last Admin: 09/22/17 10:18 Dose: 81 mg Calcium Acetate (Phoslo) 667 mg PO BIDCC [facility] Last Admin: 09/22/17 08:13 Dose: 667 mg Carvedilol (Coreg) 3.125 mg PO BID [facility] Last Admin: 09/22/17 10:27 Dose: 3.125 mg Clopidogrel Bisulfate (Plavix) 75 mg PO DAILY [facility] Last Admin: 09/22/17 10:17 Dose: 75 mg Dextrose (Dextrose 50% Inj) 0 ml IV STAT PRN; Protocol PRN Reason: Hypoglycemia Protocol Dextrose (Glutose 15) 0 gm PO ONCE PRN; Protocol PRN Reason: Hypoglycemia Protocol Gabapentin (Neurontin) 100 mg PO DAILY PRN PRN Reason: Pain, Mild (1-3) Glipizide (Glucotrol) 10 mg PO ACB [facility] Last Admin: 09/22/17 08:13 Dose: 10 mg Glucagon (Glucagen Diagnostic Kit) 0 mg IM STAT PRN; Protocol PRN Reason: Hypoglycemia Protocol Heparin Sodium (Porcine) (Heparin) 5,000 units SC Q12 [facility] Last Admin: 09/22/17 10:18 Dose: 5,000 units Home Med (Patient's Own Medication) 1 tab PO DAILY [facility] Last Admin: 09/22/17 10:24 Dose: 1 tab Home Med (Patient's Own Medication) 1 tab PO DAILY [facility] Last Admin: 09/22/17 10:18 Dose: 1 tab Ceftriaxone Sodium 1 gm/ (Sodium Chloride) 100 mls @ 100 mls/hr IVPB Q24H [facility] PRN Reason: Protocol Last Admin: 09/22/17 10:19 Dose: 100 mls/hr Dextrose (Dextrose 5% In Water 1000 Ml) 1,000 mls @ 0 mls/hr IV .Q0M PRN; Protocol; Per Protocol PRN Reason: Hypoglycemia Protocol Vancomycin/Sodium Chloride (Vancomycin 1 Gm/Ns 200 Ml) 1 gm in 200 mls @ 133.333 mls/hr IVPB MWF [facility] PRN Reason: Protocol Stop: 09/26/17 09:01 Last Admin: 09/21/17 12:56 Dose: 133.333 mls/hr Insulin Human Regular (Novolin R) 0 unit SC ACHS [facility] PRN Reason: Protocol Last Admin: 09/22/17 08:09 Dose: Not Given Paroxetine HCl (Paxil) 10 mg PO DAILY [facility] Last Admin: 09/22/17 10:18 Dose: 10 mg Rosuvastatin Calcium (Crestor) 10 mg PO HS [facility] Last Admin: 09/21/17 21:10 Dose: 10 mg Saccharomyces Boulardii (Florastor) 250 mg PO BID [facility] Last Admin: 09/22/17 10:18 Dose: 250 mg Sacubitril/Valsartan (Entresto 24 Mg-26 Mg) 1 tab PO BID [facility] Silver Sulfadiazine (Silvadene 1% 20 Gm) 0 ea TOP DAILY [facility] Last Admin: 09/22/17 10:19 Dose: Not Given Tamsulosin HCl (Flomax) 0.4 mg PO DAILY [facility] Last Admin: 09/22/17 10:18 Dose: 0.4 mg - Labs Labs: 09/22/17 07:00 09/22/17 07:00 - Constitutional Appears: Well, Non-toxic, No Acute Distress - Extremities Exam Additional comments: Bilateral LE exam VASC: DP/PT pulses are very faintly palpable 1/4, Cap refill time: < 3 sec to all digits, Temp gradient: warm to fairly warm from proximal to distal (R>L), no pitting or non-pitting edema noted DERM: Superficial epidermal lysis with healthy grannular tissue on the wound bed noted on the plantar forefoot at the ball of the foot, erythema which extends from the dorsum of the foot proximally towards the knee joint with streaks (R>L) - erythema is decreased to the level of ankle on the right, no active drainage, no malodor, no probe to bone, no tunneling or tracking NEURO: Protective sensation mildly diminished ORTHO: no pain on palpation of the wounds - Neurological Exam Neurological Exam: Alert, Awake, Oriented x3 - Psychiatric Exam Psychiatric exam: Normal Affect, Normal Mood Assessment and Plan - Assessment and Plan (Free Text) Assessment: 62 year old male was evaluated for 1). plantar forefoot wound secondary to second degree burn 2). Cellulitis 3). PVD Plan: Patient seen and evaluated with attending Dr. Pierce Labs, vitals and charts reviewed - afebrile, no leukocytosis X-rays of the foot reviewed - no acute concern for OM Burn wounds cleaned with saline and dressing applied using silvadine, DSD Wound cultures: Enterobacter asburiae, Enterococcus faecalis Continue IV abx as per ID- Ceftriaxone, Vancomycin ANUSHA/PVR ordered/reviewed: R- 0.55 and L- 0.61; poor wavefrom distal to popliteus Vascular consult, help appreciated high risk due to cardiac issues, need for revascularization if foot does not improve; Patient refused CTA Podiatry to perform local wound care Podiatry to follow patient while in-house
--- NOTE | 2017-09-22 14:54 | CP.PCM.PN ---
Subjective - Date & Time of Evaluation Date of Evaluation: 09/22/17 Time of Evaluation: 14:30 - Subjective Subjective: Hospitalist Progress Note Patient was seen and examined at 2:30 PM Currently upon FULL ROS: NO chest pain NO SOB/Cough NO abdominal pain NO n/v/d/c NO burning pain with urination NO dysphagia/odynophagia NO lightheadedenss/dizziness (states that this is a chronic issue for him) NO paresthesias NO new changes in visioin NO new changes in hearing NO headache Exam: General: AAOX3, NAD HEENT: NCA, EOMI, PERRLA, NO cervical/supraclavicular/submandibular lymphadenopathy, NO pharyngeal erythema/exudate, Nasal Turbinates are nonerythematous/nonedematous, Oral Mucosa is moist Cardio: NS1 and NS2, NO M/R?G Resp: CTA B/L, NO R/R/W GI: BSx4, Soft, NT, NO HSM, NO guarding/rebound tenderness Ext: Pulses are strong and equal in bilateral UE, palpable bilateral pedal pulses in the bilateral LE however they are weaker than the UE, erythema/warmth have decreased significantly from clearly black demarcated ink on both lower legs, clean dry bandages bilateral feet Neuro: CN II through XII are grossly intact Assesstment and Plan: 1). Bilateral Lower Leg Cellulitis with 3rd Degree Núñez Bilateral Balls of Feet Siliver Sulfadiazine Daily to the balls of the feet Wound Cultures show Gram + and Gram - negative rods: F/U sensitivities Vancomycin 1 gm IV and follow up Vanco Trough Sunday09/28/17 before 4th dose at time of HD Ceftriaxone 1 gm IV 1x/day ANUSHA shows poor wave form distal to the popliteal arteries (has a history of bilateral femoral stents) Consider vascular intervention should there be worsening or no improvement in the cellulitis Infectious Disease Dr. Frazier Podiatry Dr. Pierce Vascular Surgery Dr. Hernandez: spoke with his Top Executive Dr. Lawton who stated that patient is high risk for any vascular procedure considering his cardiac history 2). Hx CAD with Hx CABG and Pacemaker Crestor 10 mg PO 1x/day Coreg 3.125 mg PO 2x/day ASA 81 mg PO 1x/day Plavix 75 mg PO 1x/day Entresto 24/26 PO 2x/day 3). ESRD on HD via Right Chest Permacath -- Calcium Acetate 662 mg PO BID Patient is scheduled for AVF consultation with Vascular Surgeon at [facility] on 10/09/[address] Quevedo 4). Hx DM 2 Trajenta 5 mg PO 1x/day Gimepiride 10 mg PO 1x/day Hypoglycmic protocol RISS Low Dose 5). Hx HTN Coreg 3.125 mg PO 2x/day 6). Anemia Likely Secondary to ESRD Monitor HgB/Hct 7). Hx Gout Uloric 40 mg PO 1x/day 8). Hx Depression Paroxetine 10 mg PO 1x/day 9). Hx BPH Flomax 0.4 mg PO 1x/day 10). Prophylaxis Gabapentin 100 mg PO HS: when patient complains of pain in his bilateral feet it is burning in nature. Therefore Gabapentin should be used and NOT narcotics at this time. Heparin 5,000 units SC Q12H [facility]s contraindicated considering the bilateral cellulitis of the legs Florastor 250 mg PO 2x/day Heart Healthy 2 mg Na Low Carb Diet Miguel Ram D.O. Objective - Vital Signs/Intake and Output Vital Signs (last 24 hours): Temp Pulse Resp BP Pulse Ox 97.3 F L 85 20 156/83 H 96 09/22/17 08:24 09/22/17 10:27 09/22/17 08:24 09/22/17 10:27 09/22/17 08:24 Intake and Output: 09/22/17 09/22/17 06:59 18:59 Intake Total 240 580 Balance 240 580 - Medications Medications: Current Medications Aspirin (Aspirin Chewable) 81 mg PO DAILY [facility] Last Admin: 09/22/17 10:18 Dose: 81 mg Calcium Acetate (Phoslo) 667 mg PO BIDCC [facility] Last Admin: 09/22/17 08:13 Dose: 667 mg Carvedilol (Coreg) 3.125 mg PO BID [facility] Last Admin: 09/22/17 10:27 Dose: 3.125 mg Clopidogrel Bisulfate (Plavix) 75 mg PO DAILY [facility] Last Admin: 09/22/17 10:17 Dose: 75 mg Dextrose (Dextrose 50% Inj) 0 ml IV STAT PRN; Protocol PRN Reason: Hypoglycemia Protocol Dextrose (Glutose 15) 0 gm PO ONCE PRN; Protocol PRN Reason: Hypoglycemia Protocol Gabapentin (Neurontin) 100 mg PO HS [facility] Glipizide (Glucotrol) 10 mg PO ACB [facility] Last Admin: 09/22/17 08:13 Dose: 10 mg Glucagon (Glucagen Diagnostic Kit) 0 mg IM STAT PRN; Protocol PRN Reason: Hypoglycemia Protocol Heparin Sodium (Porcine) (Heparin) 5,000 units SC Q12 [facility] Last Admin: 09/22/17 10:18 Dose: 5,000 units Home Med (Patient's Own Medication) 1 tab PO DAILY [facility] Last Admin: 09/22/17 10:24 Dose: 1 tab Home Med (Patient's Own Medication) 1 tab PO DAILY [facility] Last Admin: 09/22/17 10:18 Dose: 1 tab Ceftriaxone Sodium 1 gm/ (Sodium Chloride) 100 mls @ 100 mls/hr IVPB Q24H [facility] PRN Reason: Protocol Last Admin: 09/22/17 10:19 Dose: 100 mls/hr Dextrose (Dextrose 5% In Water 1000 Ml) 1,000 mls @ 0 mls/hr IV .Q0M PRN; Protocol; Per Protocol PRN Reason: Hypoglycemia Protocol Vancomycin/Sodium Chloride (Vancomycin 1 Gm/Ns 200 Ml) 1 gm in 200 mls @ 133.333 mls/hr IVPB MWF [facility] PRN Reason: Protocol Stop: 09/26/17 09:01 Last Admin: 09/21/17 12:56 Dose: 133.333 mls/hr Insulin Human Regular (Novolin R) 0 unit SC ACHS [facility] PRN Reason: Protocol Last Admin: 09/22/17 12:30 Dose: Not Given Paroxetine HCl (Paxil) 10 mg PO DAILY [facility] Last Admin: 09/22/17 10:18 Dose: 10 mg Rosuvastatin Calcium (Crestor) 10 mg PO HS [facility] Last Admin: 09/21/17 21:10 Dose: 10 mg Saccharomyces Boulardii (Florastor) 250 mg PO BID [facility] Last Admin: 09/22/17 10:18 Dose: 250 mg Sacubitril/Valsartan (Entresto 24 Mg-26 Mg) 1 tab PO BID [facility] Silver Sulfadiazine (Silvadene 1% 20 Gm) 0 ea TOP DAILY [facility] Last Admin: 09/22/17 10:19 Dose: Not Given Tamsulosin HCl (Flomax) 0.4 mg PO DAILY [facility] Last Admin: 09/22/17 10:18 Dose: 0.4 mg - Labs Labs: 09/22/17 07:00 09/22/17 07:00
[2017-09-23] MEDS: (Novolin R) Insulin Human Regular 100 units/ml vial SC SCH ×4 (07:30→21:26)
[2017-09-23 07:51] LABS: BASO # 0.1 K/uL (0.0-0.2); BASO % 0.9 % (0.0-2.0); EOS # 0.2 K/uL (0.0-0.7); EOS % 3.6 % (0.0-4.0); HEMOGLOBIN 10.8 g/dL (12.0-18.0); LYMPH # 0.9 K/uL (1.0-4.3); LYMPH % 12.9 % (20.0-40.0); MEAN CELL VOLUME 85.4 fL (80.0-94.0); MEAN CORPUSCULAR HEMOGLOBIN 29.4 pg (27.0-31.0); MEAN CORPUSCULAR HGB CONC 34.5 g/dL (33.0-37.0); MEAN PLATELET VOLUME 7.9 fL (7.2-11.7); MONO # 0.7 K/uL (0.0-0.8); MONO % 10.8 % (0.0-10.0); NEUT # 4.9 K/uL (1.8-7.0); NEUT % 71.8 % (50.0-75.0); RBC 3.68 Mil/uL (4.40-5.90); RED CELL DISTRIBUTION WIDTH 15.7 % (11.5-14.5); WHITE BLOOD COUNT 6.8 K/uL (4.8-10.8)
[2017-09-23 07:59] LABS: ALB/GLOB RATIO 1.3 (1.0-2.1); ALBUMIN 3.7 g/dL (3.5-5.0); CALCIUM 8.7 mg/dl (8.6-10.4)
--- NOTE | 2017-09-23 08:20 | CP.PCM.PN ---
Subjective - Date & Time of Evaluation Date of Evaluation: 09/23/17 Time of Evaluation: 08:20 - Subjective Subjective: PGY-[address] Miguel Ram service Patient is seen and examined at bedside. Patient reports no acute event overnight. Patient states he is feeling much better. Patient states pain in his feet resolved, and did not feel it anymore. Pain still reports mild discomfort. Patient denies fevers, chills, chest pain, headache, SOB, abdominal pain, nausea , vomiting, diarrhea, constipation or dysuria. Patient was surrounded by family members who came to visit and to support him emotionally. Objective - Vital Signs/Intake and Output Vital Signs (last 24 hours): Temp Pulse Resp BP Pulse Ox 97.7 F 96 H 20 104/66 96 09/23/17 07:29 09/23/17 07:29 09/23/17 07:29 09/23/17 07:29 09/23/17 07:29 - Medications Medications: Current Medications Aspirin (Aspirin Chewable) 81 mg PO DAILY [facility] Last Admin: 09/22/17 10:18 Dose: 81 mg Calcium Acetate (Phoslo) 667 mg PO BIDCC [facility] Last Admin: 09/22/17 17:15 Dose: 667 mg Carvedilol (Coreg) 3.125 mg PO BID [facility] Last Admin: 09/22/17 17:15 Dose: 3.125 mg Clopidogrel Bisulfate (Plavix) 75 mg PO DAILY [facility] Last Admin: 09/22/17 10:17 Dose: 75 mg Dextrose (Dextrose 50% Inj) 0 ml IV STAT PRN; Protocol PRN Reason: Hypoglycemia Protocol Dextrose (Glutose 15) 0 gm PO ONCE PRN; Protocol PRN Reason: Hypoglycemia Protocol Gabapentin (Neurontin) 100 mg PO HS [facility] Last Admin: 09/22/17 21:15 Dose: 100 mg Glipizide (Glucotrol) 10 mg PO ACB [facility] Last Admin: 09/22/17 08:13 Dose: 10 mg Glucagon (Glucagen Diagnostic Kit) 0 mg IM STAT PRN; Protocol PRN Reason: Hypoglycemia Protocol Heparin Sodium (Porcine) (Heparin) 5,000 units SC Q12 [facility] Last Admin: 09/22/17 21:16 Dose: 5,000 units Home Med (Patient's Own Medication) 1 tab PO DAILY [facility] Last Admin: 09/22/17 10:24 Dose: 1 tab Home Med (Patient's Own Medication) 1 tab PO DAILY [facility] Last Admin: 09/22/17 10:18 Dose: 1 tab Ceftriaxone Sodium 1 gm/ (Sodium Chloride) 100 mls @ 100 mls/hr IVPB Q24H [facility] PRN Reason: Protocol Last Admin: 09/22/17 10:19 Dose: 100 mls/hr Dextrose (Dextrose 5% In Water 1000 Ml) 1,000 mls @ 0 mls/hr IV .Q0M PRN; Protocol; Per Protocol PRN Reason: Hypoglycemia Protocol Vancomycin/Sodium Chloride (Vancomycin 1 Gm/Ns 200 Ml) 1 gm in 200 mls @ 133.333 mls/hr IVPB MWF [facility] PRN Reason: Protocol Stop: 09/26/17 09:01 Last Admin: 09/21/17 12:56 Dose: 133.333 mls/hr Insulin Human Regular (Novolin R) 0 unit SC ACHS [facility] PRN Reason: Protocol Last Admin: 09/22/17 22:53 Dose: Not Given Paroxetine HCl (Paxil) 10 mg PO DAILY [facility] Last Admin: 09/22/17 10:18 Dose: 10 mg Rosuvastatin Calcium (Crestor) 10 mg PO HS [facility] Last Admin: 09/22/17 21:14 Dose: 10 mg Saccharomyces Boulardii (Florastor) 250 mg PO BID [facility] Last Admin: 09/22/17 17:15 Dose: 250 mg Sacubitril/Valsartan (Entresto 24 Mg-26 Mg) 1 tab PO BID [facility] Silver Sulfadiazine (Silvadene 1% 20 Gm) 0 ea TOP DAILY [facility] Last Admin: 09/22/17 10:19 Dose: Not Given Tamsulosin HCl (Flomax) 0.4 mg PO DAILY [facility] Last Admin: 09/22/17 10:18 Dose: 0.4 mg - Labs Labs: 09/23/17 07:34 09/23/17 07:34 - Constitutional Appears: Well, Non-toxic, No Acute Distress - Head Exam Head Exam: ATRAUMATIC, NORMAL INSPECTION, NORMOCEPHALIC - Eye Exam Eye Exam: EOMI, Normal appearance, PERRL - ENT Exam ENT Exam: Mucous Membranes Moist, Normal Exam - Neck Exam Neck Exam: Full ROM, Normal Inspection - Respiratory Exam Respiratory Exam: Clear to Ausculation Bilateral, NORMAL BREATHING PATTERN. absent: Rhonchi, Wheezes - Cardiovascular Exam Cardiovascular Exam: REGULAR RHYTHM, +S1, +S2 - GI/Abdominal Exam GI & Abdominal Exam: Soft, Normal Bowel Sounds. absent: Distended, Guarding, Rigid, Tenderness - Extremities Exam Extremities Exam: Full ROM. absent: Pedal Edema, Tenderness - Back Exam Back Exam: Full ROM - Neurological Exam Neurological Exam: Alert, Awake, Oriented x3 - Psychiatric Exam Psychiatric exam: Normal Affect, Normal Mood - Skin Skin Exam: Dry, Normal Color Assessment and Plan - Assessment and Plan (Free Text) Plan: Assesstment and Plan: 1). Bilateral Lower Leg Cellulitis with 3rd Degree Núñez Bilateral Balls of Feet afebrile, no leukocytosis (09/23: 6.6) report no pain, feeling generally better 09/19 Wound Cultures show Right foot Gram + and Gram - negative rods, Left Foot Gram - Rods: F/U sensitivities 09/19 Blood Culture: Preliminary no growth after 48 hours Meds: - Vancomycin 1 gm IV and follow up Vanco Trough Sunday09/28/17 before 4th dose at time of HD - Ceftriaxone 1 gm IV 1x/day - Silver sulfadiazine 1% 20 mg Qdaily Infect[address] Disease Dr. Frazier - F/U recs Podiatry Dr. Pierce - will perform local wound care Vascular Surgery Dr. Hernandez: spoke with his Ground Instructor Basic Dr. Lawton who stated that patient is high risk for any vascular procedure considering his cardiac history ANUSHA shows poor wave form distal to the popliteal arteries (has a history of bilateral femoral stents) 09/22 AM bilateral foot pain: ordered 300 mg PO ONCE. Pt received 100mg PO ONCE at 4pm on 09/21. Continue gabapentin 100mg PO HS 2). Hx CAD with Hx CABG and Pacemaker Crestor 10 mg PO 1x/day Coreg 3.125 mg PO 2x/day ASA 81 mg PO 1x/day Plavix 75 mg PO 1x/day Entresto 24/ PO 2x/day 3). ESRD on HD via Right Chest Permacath Calcium Acetate 667 mg PO BID Patient is scheduled for AVF consultation with Vascular Surgeon at [facility] on 10/09/[address] Quevedo- f/u recs 4). Hx DM 2 Trajenta 5 mg PO 1x/day Gimepiride 10 mg PO 1x/day Hypoglycmic protocol RISS Low Dose 5). Hx HTN Coreg 3.125 mg PO 2x/day 6). Anemia Likely Secondary to ESRD 09/23: Hb - 10.8 Monitor HgB/Hct 7). Hx Gout Uloric 40 mg PO 1x/day 8). Hx Depression Paroxetine 10 mg PO 1x/day 9). Hx BPH Flomax 0.4 mg PO 1x/day 10). Prophylaxis Heparin 5,000 units SC Q12H [facility]s contraindicated due to the bilateral cellulitis of the legs Florastor 250 mg PO 2x/day Heart Healthy 2 mg Na Low Carb Diet Monty Malone, PGY-1 Plan to be discussed with Dr Ram
[2017-09-23] MEDS: Saccharomyces Boulardi 250 mg Cap PO SCH ×2 (09:19→18:17)
[2017-09-23] MEDS: ULORIC 40 MG PO SCH (09:22)
[2017-09-23] MEDS: TRADJENTA 5 MG PO SCH (09:22)
[2017-09-23] MEDS: Silver Sulfadiazine 1% Cream (20 gm) TOP SCH (09:44)
--- NOTE | 2017-09-23 10:38 | CP.PCM.PN ---
Subjective - Date & Time of Evaluation Date of Evaluation: 09/23/17 Time of Evaluation: 10:15 - Subjective Subjective: Hospitalist Progress Note Patient was seen and examined at 10:15 AM Currently upon FULL ROS: Burning pain in the bilateral feet did not occur during the night and he is currently not experiencing the pain NO chest pain NO SOB/Cough NO abdominal pain NO n/v/d/c NO burning pain with urination NO dysphagia/odynophagia NO lightheadedenss/dizziness (states that this is a chronic issue for him) NO paresthesias NO new changes in visioin NO new changes in hearing NO headache Exam: General: AAOX3, NAD HEENT: NCA, EOMI, PERRLA, NO cervical/supraclavicular/submandibular lymphadenopathy, NO pharyngeal erythema/exudate, Nasal Turbinates are nonerythematous/nonedematous, Oral Mucosa is moist Cardio: NS1 and NS2, NO M/R?G Resp: CTA B/L, NO R/R/W GI: BSx4, Soft, NT, NO HSM, NO guarding/rebound tenderness Ext: Pulses are strong and equal in bilateral UE, palpable bilateral pedal pulses in the bilateral LE however they are weaker than the UE, erythema/warmth have decreased significantly from clearly black demarcated ink on both lower legs and subcutaneous streaking is no longer present. The 3rd degree guerrero bilateral balls of the feet have significant improved Neuro: CN II through XII are grossly intact Assesstment and Plan: 1). Bilateral Lower Leg Cellulitis with 3rd Degree Guerrero Bilateral Balls of Feet Siliver Sulfadiazine Daily to the balls of the feet Wound Cultures show Enterobacter asburiae and Enterobacter faecalis sensitive to Ceftriaxone and Vancomycin, respectively Vancomycin 1 gm IV and follow up Vanco Trough Sunday09/28/17 before 4th dose at time of HD Ceftriaxone 1 gm IV 1x/day ANUSHA shows poor wave form distal to the popliteal arteries (has a history of bilateral femoral stents) Consider vascular intervention should there be worsening or no improvement in the cellulitis: however his cellulitis continues to improve daily Infectious Disease Dr. Frazier Podiatry Dr. Pierce Vascular Surgery Dr. Hernandez: spoke with his Retirement Benefits Specialist Dr. Lawton who stated that patient is high risk for any vascular procedure considering his cardiac history 2). Hx CAD with Hx CABG and Pacemaker Crestor 10 mg PO 1x/day Coreg 3.125 mg PO 2x/day ASA 81 mg PO 1x/day Plavix 75 mg PO 1x/day Entresto PO 2x/day 3). ESRD on HD via Right Chest Permacath - Calcium Acetate 662 mg PO BID Patient is scheduled for AVF consultation with unspecified Vascular Surgeon at [facility] on 10/09/[address] Quevedo 4). Hx DM 2 Trajenta 5 mg PO 1x/day Gimepiride 10 mg PO 1x/day Hypoglycmic protocol RISS Low Dose 5). Hx HTN Coreg 3.125 mg PO 2x/day 6). Anemia Likely Secondary to ESRD Monitor HgB/Hct 7). Hx Gout Uloric 40 mg PO 1x/day 8). Hx Depression Paroxetine 10 mg PO 1x/day 9). Hx BPH Flomax 0.4 mg PO 1x/day 10). Prophylaxis Gabapentin 100 mg PO HS: when patient complains of pain in his bilateral feet it is burning in nature. Therefore Gabapentin should be used and NOT narcotics at this time. Heparin 5,000 units SC Q12H SCDs contraindicated considering the bilateral cellulitis of the legs Florastor 250 mg PO 2x/day Heart Healthy 2 mg Na Low Carb Diet Disposition: Patient will need clearance from Podiatry and ID before discharge. Can the patient be transitioned to Ciprofloxacin as it will cover both Enterobacter asburiae and Enterobacter faecalis? Miguel Ram D.O. Objective - Vital Signs/Intake and Output Vital Signs (last 24 hours): Temp Pulse Resp BP Pulse Ox 97.7 F 96 H 20 104/66 96 09/23/17 07:29 09/23/17 07:29 09/23/17 07:29 09/23/17 07:29 09/23/17 07:29 - Medications Medications: Current Medications Aspirin (Aspirin Chewable) 81 mg PO DAILY [facility] Last Admin: 09/23/17 09:19 Dose: 81 mg [facility] ([facility]) [facility] Last Admin: 09/23/17 08:00 Dose: 667 mg Carvedilol (Coreg) 3.125 mg PO BID [facility] Last Admin: 09/23/17 09:19 Dose: 3.125 mg Clopidogrel Bisulfate (Plavix) 75 mg PO DAILY [facility] Last Admin: 09/23/17 09:19 Dose: 75 mg Dextrose (Dextrose 50% Inj) 0 ml IV STAT PRN; Protocol PRN Reason: Hypoglycemia Protocol Dextrose (Glutose 15) 0 gm PO ONCE PRN; Protocol PRN Reason: Hypoglycemia Protocol Gabapentin (Neurontin) 100 mg PO HS [facility] Last Admin: 09/22/17 21:15 Dose: 100 mg Glipizide (Glucotrol) 10 mg PO ACB [facility] Last Admin: 09/23/17 07:30 Dose: 10 mg Glucagon (Glucagen Diagnostic Kit) 0 mg IM STAT PRN; Protocol PRN Reason: Hypoglycemia Protocol Heparin Sodium (Porcine) (Heparin) 5,000 units SC Q12 [facility] Last Admin: 09/23/17 09:20 Dose: 5,000 units Home Med (Patient's Own Medication) 1 tab PO DAILY [facility] Last Admin: 09/23/17 09:22 Dose: 1 tab Home Med (Patient's Own Medication) 1 tab PO DAILY [facility] Last Admin: 09/23/17 09:22 Dose: 1 tab Ceftriaxone Sodium 1 gm/ (Sodium Chloride) 100 mls @ 100 mls/hr IVPB Q24H [facility] PRN Reason: Protocol Last Admin: 09/23/17 09:46 Dose: 100 mls/hr Dextrose (Dextrose 5% In Water 1000 Ml) 1,000 mls @ 0 mls/hr IV .Q0M PRN; Protocol; Per Protocol PRN Reason: Hypoglycemia Protocol Vancomycin/Sodium Chloride (Vancomycin 1 Gm/Ns 200 Ml) 1 gm in 200 mls @ 133.333 mls/hr IVPB MWF [facility] PRN Reason: Protocol Stop: 09/26/17 09:01 Last Admin: 09/21/17 12:56 Dose: 133.333 mls/hr Insulin Human Regular (Novolin R) 0 unit SC ACHS [facility] PRN Reason: Protocol Last Admin: 09/23/17 07:30 Dose: Not Given Paroxetine HCl (Paxil) 10 mg PO DAILY [facility] Last Admin: 09/23/17 09:42 Dose: 10 mg Rosuvastatin Calcium (Crestor) 10 mg PO HS [facility] Last Admin: 09/22/17 21:14 Dose: 10 mg Saccharomyces Boulardii (Florastor) 250 mg PO BID [facility] Last Admin: 09/23/17 09:19 Dose: 250 mg Sacubitril/Valsartan (Entresto 24 Mg-26 Mg) 1 tab PO BID [facility] Silver Sulfadiazine (Silvadene 1% 20 Gm) 0 ea TOP DAILY [facility] Last Admin: 09/23/17 09:44 Dose: 1 applic Tamsulosin HCl (Flomax) 0.4 mg PO DAILY [facility] Last Admin: 09/23/17 09:20 Dose: 0.4 mg - Labs Labs: 09/23/17 07:34 09/23/17 07:34
--- NOTE | 2017-09-23 13:32 | CP.PCM.PN ---
Subjective - Date & Time of Evaluation Date of Evaluation: 09/23/17 Time of Evaluation: 13:29 - Subjective Subjective: Podiatry progress note: Dr. Pierce 62 year old male patient was seen and evaluated for bilateral foot burn wounds and cellulitis. Patient is AAOx3 and appears in NAD. Reports that his dressing was just changed by medicine team. Denies of having acute overnight events. No other pedal complains. Denies F/N/V/C/SOB/CP/headache/diarrhea. Objective - Vital Signs/Intake and Output Vital Signs (last 24 hours): Temp Pulse Resp BP Pulse Ox 97.7 F 96 H 20 104/66 96 09/23/17 07:29 09/23/17 07:29 09/23/17 07:29 09/23/17 07:29 09/23/17 07:29 - Medications Medications: Current Medications Aspirin (Aspirin Chewable) 81 mg PO DAILY [facility] Last Admin: 09/23/17 09:19 Dose: 81 mg Calcium Acetate (Phoslo) 667 mg PO BIDCC [facility] Last Admin: 09/23/17 08:00 Dose: 667 mg Carvedilol (Coreg) 3.125 mg PO BID [facility] Last Admin: 09/23/17 09:19 Dose: 3.125 mg Clopidogrel Bisulfate (Plavix) 75 mg PO DAILY [facility] Last Admin: 09/23/17 09:19 Dose: 75 mg Dextrose (Dextrose 50% Inj) 0 ml IV STAT PRN; Protocol PRN Reason: Hypoglycemia Protocol Dextrose (Glutose 15) 0 gm PO ONCE PRN; Protocol PRN Reason: Hypoglycemia Protocol Gabapentin (Neurontin) 100 mg PO HS [facility] Last Admin: 09/22/17 21:15 Dose: 100 mg Glipizide (Glucotrol) 10 mg PO ACB [facility] Last Admin: 09/23/17 07:30 Dose: 10 mg Glucagon (Glucagen Diagnostic Kit) 0 mg IM STAT PRN; Protocol PRN Reason: Hypoglycemia Protocol Heparin Sodium (Porcine) (Heparin) 5,000 units SC Q12 [facility] Last Admin: 09/23/17 09:20 Dose: 5,000 units Home Med (Patient's Own Medication) 1 tab PO DAILY [facility] Last Admin: 09/23/17 09:22 Dose: 1 tab Home Med (Patient's Own Medication) 1 tab PO DAILY [facility] Last Admin: 09/23/17 09:22 Dose: 1 tab Ceftriaxone Sodium 1 gm/ (Sodium Chloride) 100 mls @ 100 mls/hr IVPB Q24H [facility] PRN Reason: Protocol Last Admin: 09/23/17 09:46 Dose: 100 mls/hr Dextrose (Dextrose 5% In Water 1000 Ml) 1,000 mls @ 0 mls/hr IV .Q0M PRN; Protocol; Per Protocol PRN Reason: Hypoglycemia Protocol Vancomycin/Sodium Chloride (Vancomycin 1 Gm/Ns 200 Ml) 1 gm in 200 mls @ 133.333 mls/hr IVPB MWF [facility] PRN Reason: Protocol Stop: 09/26/17 09:01 Last Admin: 09/21/17 12:56 Dose: 133.333 mls/hr Insulin Human Regular (Novolin R) 0 unit SC ACHS [facility] PRN Reason: Protocol Last Admin: 09/23/17 11:30 Dose: 1 unit Paroxetine HCl (Paxil) 10 mg PO DAILY [facility] Last Admin: 09/23/17 09:42 Dose: 10 mg Rosuvastatin Calcium (Crestor) 10 mg PO HS [facility] Last Admin: 09/22/17 21:14 Dose: 10 mg Saccharomyces Boulardii (Florastor) 250 mg PO BID [facility] Last Admin: 09/23/17 09:19 Dose: 250 mg Sacubitril/Valsartan (Entresto 24 Mg-26 Mg) 1 tab PO BID [facility] Silver Sulfadiazine (Silvadene 1% 20 Gm) 0 ea TOP DAILY [facility] Last Admin: 09/23/17 09:44 Dose: 1 applic Tamsulosin HCl (Flomax) 0.4 mg PO DAILY [facility] Last Admin: 09/23/17 09:20 Dose: 0.4 mg - Labs Labs: 09/23/17 07:34 09/23/17 07:34 - Constitutional Appears: Well, Non-toxic, No Acute Distress - Extremities Exam Additional comments: New dressing in place that is clean, dry and intact. No strike through or drainage noted Erythema appears to be reducing on bilateral legs - Neurological Exam Neurological Exam: Alert, Awake, Oriented x3 - Psychiatric Exam Psychiatric exam: Normal Affect, Normal Mood Assessment and Plan - Assessment and Plan (Free Text) Assessment: 62 year old male was evaluated for 1). plantar forefoot wound secondary to second degree burn 2). Cellulitis 3). PVD Plan: Patient seen and evaluated Discussed plan with attending Dr. Pierce Labs, vitals and charts reviewed - afebrile, no leukocytosis X-rays of the foot reviewed - no acute concern for OM Dressing applied by medicine team Wound cultures: Enterobacter asburiae, Enterococcus faecalis Continue IV abx as per ID- Ceftriaxone, Vancomycin ANUSHA/PVR ordered/reviewed: R- 0.55 and L- 0.61; poor wavefrom distal to popliteus Vascular consult, help appreciated high risk due to cardiac issues, need for revascularization if foot does not improve; Patient refused CTA Podiatry to perform local wound care Podiatry to follow patient while in-house
--- NOTE | 2017-09-23 15:48 | CP.PCM.PN ---
Subjective - Date & Time of Evaluation Date of Evaluation: 09/23/17 Time of Evaluation: 09:00 - Subjective Subjective: cellulitis less no fever Objective - Vital Signs/Intake and Output Vital Signs (last 24 hours): Temp Pulse Resp BP Pulse Ox 97.7 F 96 H 20 104/66 96 09/23/17 07:29 09/23/17 07:29 09/23/17 07:29 09/23/17 07:29 09/23/17 07:29 - Medications Medications: Current Medications Aspirin (Aspirin Chewable) 81 mg PO DAILY [facility] Last Admin: 09/23/17 09:19 Dose: 81 mg Calcium Acetate (Phoslo) 667 mg PO BIDCC [facility] Last Admin: 09/23/17 08:00 Dose: 667 mg Carvedilol (Coreg) 3.125 mg PO BID [facility] Last Admin: 09/23/17 09:19 Dose: 3.125 mg Clopidogrel Bisulfate (Plavix) 75 mg PO DAILY [facility] Last Admin: 09/23/17 09:19 Dose: 75 mg Dextrose (Dextrose 50% Inj) 0 ml IV STAT PRN; Protocol PRN Reason: Hypoglycemia Protocol Dextrose (Glutose 15) 0 gm PO ONCE PRN; Protocol PRN Reason: Hypoglycemia Protocol Gabapentin (Neurontin) 100 mg PO HS [facility] Last Admin: 09/22/17 21:15 Dose: 100 mg Glipizide (Glucotrol) 10 mg PO ACB [facility] Last Admin: 09/23/17 07:30 Dose: 10 mg Glucagon (Glucagen Diagnostic Kit) 0 mg IM STAT PRN; Protocol PRN Reason: Hypoglycemia Protocol Heparin Sodium (Porcine) (Heparin) 5,000 units SC Q12 [facility] Last Admin: 09/23/17 09:20 Dose: 5,000 units Home Med (Patient's Own Medication) 1 tab PO DAILY [facility] Last Admin: 09/23/17 09:22 Dose: 1 tab Home Med (Patient's Own Medication) 1 tab PO DAILY [facility] Last Admin: 09/23/17 09:22 Dose: 1 tab Ceftriaxone Sodium 1 gm/ (Sodium Chloride) 100 mls @ 100 mls/hr IVPB Q24H [facility] PRN Reason: Protocol Last Admin: 09/23/17 09:46 Dose: 100 mls/hr Dextrose (Dextrose 5% In Water 1000 Ml) 1,000 mls @ 0 mls/hr IV .Q0M PRN; Protocol; Per Protocol PRN Reason: Hypoglycemia Protocol Vancomycin/Sodium Chloride (Vancomycin 1 Gm/Ns 200 Ml) 1 gm in 200 mls @ 133.333 mls/hr IVPB MWF [facility] PRN Reason: Protocol Stop: 09/26/17 09:01 Last Admin: 09/21/17 12:56 Dose: 133.333 mls/hr Insulin Human Regular (Novolin R) 0 unit SC ACHS [facility] PRN Reason: Protocol Last Admin: 09/23/17 11:30 Dose: 1 unit Paroxetine HCl (Paxil) 10 mg PO DAILY [facility] Last Admin: 09/23/17 09:42 Dose: 10 mg Rosuvastatin Calcium (Crestor) 10 mg PO HS [facility] Last Admin: 09/22/17 21:14 Dose: 10 mg Saccharomyces Boulardii (Florastor) 250 mg PO BID [facility] Last Admin: 09/23/17 09:19 Dose: 250 mg Sacubitril/Valsartan (Entresto 24 Mg-26 Mg) 1 tab PO BID [facility] Silver Sulfadiazine (Silvadene 1% 20 Gm) 0 ea TOP DAILY [facility] Last Admin: 09/23/17 09:44 Dose: 1 applic Tamsulosin HCl (Flomax) 0.4 mg PO DAILY [facility] Last Admin: 09/23/17 09:20 Dose: 0.4 mg - Labs Labs: 09/23/17 07:34 09/23/17 07:34 - Constitutional Appears: Non-toxic - Head Exam Head Exam: ATRAUMATIC, NORMAL INSPECTION, NORMOCEPHALIC - Eye Exam Eye Exam: EOMI, Normal appearance, PERRL Pupil Exam: NORMAL ACCOMODATION, PERRL - ENT Exam ENT Exam: Mucous Membranes Moist, Normal Exam - Neck Exam Neck Exam: Full ROM, Normal Inspection. absent: Lymphadenopathy - Respiratory Exam Respiratory Exam: Clear to Ausculation Bilateral, NORMAL BREATHING PATTERN - Cardiovascular Exam Cardiovascular Exam: REGULAR RHYTHM, +S1, +S2. absent: Murmur - GI/Abdominal Exam GI & Abdominal Exam: Soft, Normal Bowel Sounds. absent: Tenderness - Rectal Exam Rectal Exam: NORMAL INSPECTION - Exam Exam: Circumcision, NORMAL INSPECTION - Extremities Exam Extremities Exam: Full ROM, Pedal Edema, Tenderness. absent: Joint Swelling, Normal Capillary Refill - Back Exam Back Exam: NORMAL INSPECTION - Neurological Exam Neurological Exam: Alert, Awake, CN II-XII Intact, Normal Gait, Oriented x3 - Psychiatric Exam Psychiatric exam: Normal Affect, Normal Mood - Skin Skin Exam: Dry, Erythema Assessment and Plan (1) Burn, foot, second degree Status: Acute (2) Guerrero involv 10-19% of body surface w/less than 10% third degree guerrero Status: Acute (3) CAD (coronary artery disease) Status: Acute (4) Cellulitis Status: Acute (5) Cellulitis of both feet Status: Acute (6) End stage renal disease Status: Acute (7) PVD (peripheral vascular disease) Status: Acute (8) Type 2 diabetes mellitus with diabetic nephropathy Status: Acute
[2017-09-24 07:38] LABS: BASO # 0.1 K/uL (0.0-0.2); BASO % 0.7 % (0.0-2.0); EOS # 0.3 K/uL (0.0-0.7); EOS % 3.4 % (0.0-4.0); HEMOGLOBIN 10.8 g/dL (12.0-18.0); LYMPH # 0.8 K/uL (1.0-4.3); LYMPH % 11.4 % (20.0-40.0); MEAN CORPUSCULAR HEMOGLOBIN 29.7 pg (27.0-31.0); MEAN PLATELET VOLUME 8.1 fL (7.2-11.7); MONO # 0.7 K/uL (0.0-0.8); MONO % 9.6 % (0.0-10.0); NEUT # 5.6 K/uL (1.8-7.0); NEUT % 74.9 % (50.0-75.0); RBC 3.64 Mil/uL (4.40-5.90); RED CELL DISTRIBUTION WIDTH 15.3 % (11.5-14.5); WHITE BLOOD COUNT 7.4 K/uL (4.8-10.8)
[2017-09-24 07:46] LABS: ALB/GLOB RATIO 1.4 (1.0-2.1); CALCIUM 8.9 mg/dl (8.6-10.4)
[2017-09-24] MEDS: (Novolin R) Insulin Human Regular 100 units/ml vial SC SCH ×4 (08:29→21:35)
--- NOTE | 2017-09-24 10:03 | CP.PCM.PN ---
Addendum entered and electronically signed by Camacho Aguilar 09/24/17 17:50: As per Vascular Surgery, patient refusing CT angiogram at this time. Original Note: <Camacho Aguilar - Last Filed: 09/24/17 17:28> Subjective - Date & Time of Evaluation Date of Evaluation: 09/24/17 Time of Evaluation: 10:03 - Subjective Subjective: Progress Note for Hospitalist Service Patient seen and examined at bedside. He states that his pain in his feet has improved. He admits to slight nausea since last night. He denies fevers, chills , headache, dizziness, chest pain, shortness of breath, palpitation, abdominal pain, vomiting, diarrhea, dysuria, calf tenderness. Objective - Vital Signs/Intake and Output Vital Signs (last 24 hours): Temp Pulse Resp BP Pulse Ox 97.5 F L 89 20 125/73 98 09/24/17 08:04 09/24/17 08:04 09/24/17 08:04 09/24/17 08:04 09/24/17 08:04 Intake and Output: 09/24/17 09/24/17 06:59 18:59 Intake Total 600 Balance 600 - Medications Medications: Current Medications Aspirin (Aspirin Chewable) 81 mg PO DAILY [facility] Last Admin: 09/23/17 09:19 Dose: 81 mg Calcium Acetate (Phoslo) 667 mg PO BIDCC [facility] Last Admin: 09/24/17 08:28 Dose: 667 mg Carvedilol (Coreg) 3.125 mg PO BID [facility] Last Admin: 09/23/17 18:17 Dose: 3.125 mg Clopidogrel Bisulfate (Plavix) 75 mg PO DAILY [facility] Last Admin: 09/23/17 09:19 Dose: 75 mg Dextrose (Dextrose 50% Inj) 0 ml IV STAT PRN; Protocol PRN Reason: Hypoglycemia Protocol Dextrose (Glutose 15) 0 gm PO ONCE PRN; Protocol PRN Reason: Hypoglycemia Protocol Gabapentin (Neurontin) 100 mg PO HS [facility] Last Admin: 09/23/17 21:28 Dose: 100 mg Glipizide (Glucotrol) 10 mg PO ACB [facility] Last Admin: 09/24/17 08:28 Dose: 10 mg Glucagon (Glucagen Diagnostic Kit) 0 mg IM STAT PRN; Protocol PRN Reason: Hypoglycemia Protocol Heparin Sodium (Porcine) (Heparin) 5,000 units SC Q12 [facility] Last Admin: 09/23/17 21:29 Dose: 5,000 units Home Med (Patient's Own Medication) 1 tab PO DAILY [facility] Last Admin: 09/23/17 09:22 Dose: 1 tab Home Med (Patient's Own Medication) 1 tab PO DAILY [facility] Last Admin: 09/23/17 09:22 Dose: 1 tab Ceftriaxone Sodium 1 gm/ (Sodium Chloride) 100 mls @ 100 mls/hr IVPB Q24H [facility] PRN Reason: Protocol Last Admin: 09/23/17 09:46 Dose: 100 mls/hr Dextrose (Dextrose 5% In Water 1000 Ml) 1,000 mls @ 0 mls/hr IV .Q0M PRN; Protocol; Per Protocol PRN Reason: Hypoglycemia Protocol Vancomycin/Sodium Chloride (Vancomycin 1 Gm/Ns 200 Ml) 1 gm in 200 mls @ 133.333 mls/hr IVPB MWF [facility] PRN Reason: Protocol Stop: 09/26/17 09:01 Last Admin: 09/21/17 12:56 Dose: 133.333 mls/hr Insulin Human Regular (Novolin R) 0 unit SC ACHS [facility] PRN Reason: Protocol Last Admin: 09/24/17 08:29 Dose: Not Given Paroxetine HCl (Paxil) 10 mg PO DAILY [facility] Last Admin: 09/23/17 09:42 Dose: 10 mg Rosuvastatin Calcium (Crestor) 10 mg PO HS [facility] Last Admin: 09/23/17 21:28 Dose: 10 mg Saccharomyces Boulardii (Florastor) 250 mg PO BID [facility] Last Admin: 09/23/17 18:17 Dose: 250 mg Sacubitril/Valsartan (Entresto 24 Mg-26 Mg) 1 tab PO BID [facility] Silver Sulfadiazine (Silvadene 1% 20 Gm) 0 ea TOP DAILY [facility] Last Admin: 09/23/17 09:44 Dose: 1 applic Tamsulosin HCl (Flomax) 0.4 mg PO DAILY [facility] Last Admin: 09/23/17 09:20 Dose: 0.4 mg - Labs Labs: 09/24/17 07:12 09/24/17 07:12 - Constitutional Appears: Well, No Acute Distress - Head Exam Head Exam: ATRAUMATIC, NORMOCEPHALIC - Eye Exam Eye Exam: EOMI - ENT Exam ENT Exam: Mucous Membranes Moist - Neck Exam Neck Exam: absent: Tenderness - Respiratory Exam Respiratory Exam: Clear to Ausculation Bilateral, NORMAL BREATHING PATTERN. absent: Rales, Rhonchi, Wheezes, Respiratory Distress, Stridor Additional comments: Permacath of right anterior chest - Cardiovascular Exam Cardiovascular Exam: REGULAR RHYTHM, +S1, +S2. absent: JVD - GI/Abdominal Exam GI & Abdominal Exam: Soft, Normal Bowel Sounds. absent: Firm, Guarding, Rigid, Tenderness - Extremities Exam Extremities Exam: absent: Calf Tenderness Additional comments: Right lower extremity: Resolving lymphangitis, limited to dorsum of right foot. Right foot: burn wound to plantar surface improved, with no active drainage noted. Sensation intact at toes and plantar aspect of foot. Left lower extremity: Lymphangitis no longer present on left hodge. Left foot: Resolving lymphangitis on dorsum of foot. Burn wound to plantar surface significantly improved. Sensation intact at toes and plantar aspect of foot. - Back Exam Back Exam: absent: CVA tenderness (L), CVA tenderness (R) Additional comments: Right: Resolving lymphangitis of RLE, improved from outlined area. Right foot: Left: Resolving lymphangitis of LLE, contained to outlined area. Left foot: - Neurological Exam Neurological Exam: Alert, Awake, Oriented x3 Assessment and Plan - Assessment and Plan (Free Text) Plan: Assessment/plan Bilateral lower leg cellulitis 3rd degree guerrero to plantar aspect of feet ID Dr. Frazier consulted, help appreciated Podiatry Dr. Pierce consulted, help appreciated Follow up on blood cultures Wound cultures revealed Enterobacter asburiae and Enterococcus fecalis, sensitive to Ceftriaxone and Vancomycin currently IV antibiotics: Ceftriaxone 1g IV daily starting 09/20/17 Vancomycin 1g IV MWF on dialysis days Follow up with Vancomycin trough on Sunday09/28/17 prior to 4th dose Daily dressing changes by Podiatry, with Silvadene and Xerofoam dressings. 09/24/17: Discussed with Dr. Frazier about switching from Ceftriaxone to Ciprofloxacin, who stated that it is appropriate for Enterobacter, but not appropriate for Enterococcus. 09/24/17: As per Podiatry, wounds are healing well, will continue daily dressings. 09/19/17 Arterial doppler: moderately decreased perfusion of both lower extremities, noted at the superficial femoral, popliteal, tibial and distal small artery levels. 09/19/17: Foot XR: no fracture, dislocation, no concern for osteomyelitis. As per Vascular Surgery, patient is high risk for vascular procedure given cardiac history. Hx of CAD s/p CABG and pacemaker Crestor 20mg PO daily Coreg 3.125mg PO BID ASA 81mg PO daily Plavix 75mg PO daily Entresto ESRD on HD via right chest permacath, Sunday/Sunday/Sunday HD [facility] F [facility] Calcium acetate [address] B[address] Quevedo consulted, help appreciated Patient is due for AV fistula placement consultation at [facility] on 10/09/17 Hx of DM, type 2 Tradjenta 5mg PO daily (home med) Glipizide 10mg PO daily Hypoglycemic protocol ISS A1C: 6.5 Hx of HTN Coreg 3.125mg PO BID Anemia likely secondary to chronic disease, ESRD 09/24/17 Hb 10.8/ Hct 30.9 continue to monitor H/H Hx of gout Uloric 40mg PO once daily Hx of depression Paroxetine 10mg PO once daily Hx of BPH Flomax 0.4mg PO daily Prophylaxis Heparin 5000 units SC Q12 SCDs contraindicated secondary to cellulitis Florastor 250mg PO twice daily Heart healthy 2g Na low carb diet PT/OT evaluation Disposition: Patient will require clearance from ID and Podiatry for discharge. Patient states he would like to be discharged home. Camacho Aguilar, PGYI Case discussed with Dr. De Leon <Keren De Leon V - Last Filed: 09/24/17 18:38> Objective - Vital Signs/Intake and Output Vital Signs (last 24 hours): Temp Pulse Resp BP Pulse Ox 97.8 F 85 20 140/77 98 09/24/17 16:03 09/24/17 16:03 09/24/17 16:03 09/24/17 16:03 09/24/17 16:03 Intake and Output: 09/24/17 09/24/17 06:59 18:59 Intake Total 600 100 Balance 600 100 - Medications Medications: Current Medications Aspirin (Aspirin Chewable) 81 mg PO DAILY [facility] Last Admin: 09/24/17 13:58 Dose: 81 mg [facility] Last Admin: 09/24/17 17:53 Dose: 667 mg Carvedilol (Coreg) 3.125 mg PO BID [facility] Last Admin: 09/24/17 17:53 Dose: 3.125 mg Clopidogrel Bisulfate (Plavix) 75 mg PO DAILY [facility] Last Admin: 09/24/17 14:00 Dose: 75 mg Dextrose (Dextrose 50% Inj) 0 ml IV STAT PRN; Protocol PRN Reason: Hypoglycemia Protocol Dextrose (Glutose 15) 0 gm PO ONCE PRN; Protocol PRN Reason: Hypoglycemia Protocol Gabapentin (Neurontin) 100 mg PO HS [facility] Last Admin: 09/23/17 21:28 Dose: 100 mg Glipizide (Glucotrol) 10 mg PO ACB [facility] Last Admin: 09/24/17 08:28 Dose: 10 mg Glucagon (Glucagen Diagnostic Kit) 0 mg IM STAT PRN; Protocol PRN Reason: Hypoglycemia Protocol Heparin Sodium (Porcine) (Heparin) 5,000 units SC Q12 [facility] Last Admin: 09/24/17 10:41 Dose: Not Given Heparin Sodium (Porcine) (Heparin) 4,600 units IVP [facility] Last Admin: 09/24/17 11:59 Dose: 4,600 units Home Med (Patient's Own Medication) 1 tab PO DAILY [facility] Last Admin: 09/24/17 13:57 Dose: 1 tab Home Med (Patient's Own Medication) 1 tab PO DAILY [facility] Last Admin: 09/24/17 13:58 Dose: 1 tab Ceftriaxone Sodium 1 gm/ (Sodium Chloride) 100 mls @ 100 mls/hr IVPB Q24H [facility] PRN Reason: Protocol Last Admin: 09/24/17 13:53 Dose: 100 mls/hr Dextrose (Dextrose 5% In Water 1000 Ml) 1,000 mls @ 0 mls/hr IV .Q0M PRN; Protocol; Per Protocol PRN Reason: Hypoglycemia Protocol Vancomycin/Sodium Chloride (Vancomycin 1 Gm/Ns 200 Ml) 1 gm in 200 mls @ 133.333 mls/hr IVPB [facility] PRN Reason: Protocol Stop: 09/26/17 09:01 Last Admin: 09/24/17 15:32 Dose: 133.333 mls/hr Insulin Human Regular (Novolin R) 0 unit SC ACHS [facility] PRN Reason: Protocol Last Admin: 09/24/17 13:35 Dose: Not Given Paroxetine HCl (Paxil) 10 mg PO DAILY [facility] Last Admin: 09/24/17 14:00 Dose: 10 mg Rosuvastatin Calcium (Crestor) 10 mg PO HS [facility] Last Admin: 09/23/17 21:28 Dose: 10 mg Saccharomyces Boulardii (Florastor) 250 mg PO BID [facility] Last Admin: 09/24/17 17:53 Dose: 250 mg Sacubitril/Valsartan (Entresto 24 Mg-26 Mg) 1 tab PO BID [facility] Silver Sulfadiazine (Silvadene 1% 20 Gm) 0 ea TOP DAILY [facility] Last Admin: 09/24/17 10:42 Dose: Not Given Tamsulosin HCl (Flomax) 0.4 mg PO DAILY [facility] Last Admin: 09/24/17 13:59 Dose: 0.4 mg - Labs Labs: 09/24/17 07:12 09/24/17 07:12 Attending/Attestation - Attestation I have personally seen and examined this patient.: Yes I have fully participated in the care of the patient.: Yes I have reviewed all pertinent clinical information, including history, physical exam and plan: Yes Notes (Text): Patient seen, examined, case discussed with program medical director. Suspected first time with this patient. Patient was seen during dialysis. Patient noted healing from third degree guerrero over both feet. Patient is also on IV antibiotic treatment for cellulitis and associated lymphangitis. He has significant cardiac history. Did ask the patient if you is amenable to CT Angiovist lower extremity patient denies. Patient reports he's concerned about the contrast and does not wanted. 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 Patient's ultimate plan is to be discharged to home he does not want to go to rehabilitation Resident has followed up with infectious disease who notes that Cipro would not be a good option for the patient. We'll follow up with podiatry and wound care as well. Assesstment and Plan: 1). Bilateral Lower Leg Cellulitis with 3rd Degree Guerrero Bilateral Balls of Feet Assessment/plan * Nephrology Dr. Quevedo on board * Vascular surgery Dr. Hernandez on Board * Patient refuses CT angiogram. He does not want contrast dye. * Infectious disease Dr. Frazier on board * Podiatry Dr. Pierce on board * Wound Care on board: * Wound care note-asked to assess patient who presented to hospital with 3rd degree guerrero to his bilateral plantar aspects of feet. per patient, he was walking on hot pavement a few weeks ago when this occurred. After collaborating with DR. Ram, recommendations are to continue silvadene, xeroform and dry bulky dressings to be changed every 12 hours to help with the healing process. Will continue to monitor case. * Siliver Sulfadiazine Daily to the balls of the feet * Wound Cultures (09/19/17) show Enterobacter asburiae and Enterobacter faecalis sensitive to Ceftriaxone and Vancomycin, respectively * IV abx: * Vancomycin 1 gm IV and follow up Vanco Trough Sunday09/28/17 before 4th dose at time of HD * Ceftriaxone 1 gm IV 1x/day active since September 20 * ANUSHA shows poor wave form distal to the popliteal arteries (has a history of bilateral femoral stents) 2). Hx CAD with Hx CABG and Pacemaker Assessment/plan * Crestor 10 mg PO 1x/day * Coreg 3.125 mg PO 2x/day * ASA 81 mg PO 1x/day * Plavix 75 mg PO 1x/day * Entresto 24/ PO 2x/day 3). ESRD on HD via Right Chest Permacath Assessment/plan * Calcium Acetate 662 mg PO BID * Patient is scheduled for AVF consultation with unspecified Vascular Surgeon at [facility] on 10/09/17 * Nephrology Dr. Quevedo 4). Hx DM 2 Assessment/plan * Trajenta 5 mg PO 1x/day * Gimepiride 10 mg PO 1x/day * Hypoglycmic protocol * RISS Low Dose 5). Hx HTN Assessment/plan * Coreg 3.125 mg PO 2x/day 6). Anemia Likely Secondary to ESRD Assessment/plan * Monitor HgB/Hct 7). Hx Gout Assessment/plan * Uloric 40 mg PO 1x/day 8). Hx Depression Assessment/plan * Paroxetine 10 mg PO 1x/day 9). Hx BPH Assessment/plan * Flomax 0.4 mg PO 1x/day 10). Prophylaxis * Gabapentin 100 mg PO HS: when patient complains of pain in his bilateral feet it is burning in nature. Therefore Gabapentin should be used and NOT narcotics at this time. * Heparin 5,000 units SC Q12H * SCDs contraindicated considering the bilateral cellulitis of the legs * Florastor 250 mg PO 2x/day * Heart Healthy 2 mg Na Low Carb Diet Disposition: Patient will need clearance from Podiatry and ID before discharge. Will continue IV abx for wound culture. Patient continues to refuse AMA.
[2017-09-24] MEDS: Saccharomyces Boulardi 250 mg Cap PO SCH ×2 (10:41→17:53)
[2017-09-24] MEDS: ULORIC 40 MG PO SCH ×2 (10:41→13:57)
[2017-09-24] MEDS: TRADJENTA 5 MG PO SCH ×2 (10:41→13:58)
[2017-09-24] MEDS: Silver Sulfadiazine 1% Cream (20 gm) TOP SCH (10:42)
--- NOTE | 2017-09-24 10:42 | CP.PCM.PN ---
Subjective - Date & Time of Evaluation Date of Evaluation: 09/24/17 Time of Evaluation: 10:41 - Subjective Subjective: seen and examined on hd improved cellulitis improved pain Objective - Vital Signs/Intake and Output Vital Signs (last 24 hours): Temp Pulse Resp BP Pulse Ox 97.6 F 89 20 146/88 97 09/24/17 09:50 09/24/17 09:50 09/24/17 09:50 09/24/17 10:05 09/24/17 09:50 Intake and Output: 09/24/17 09/24/17 06:59 18:59 Intake Total 600 Balance 600 - Medications Medications: Current Medications Aspirin (Aspirin Chewable) 81 mg PO DAILY [facility] Last Admin: 09/23/17 09:19 Dose: 81 mg Calcium Acetate (Phoslo) 667 mg PO BIDCC [facility] Last Admin: 09/24/17 08:28 Dose: 667 mg Carvedilol (Coreg) 3.125 mg PO BID [facility] Last Admin: 09/23/17 18:17 Dose: 3.125 mg Clopidogrel Bisulfate (Plavix) 75 mg PO DAILY [facility] Last Admin: 09/23/17 09:19 Dose: 75 mg Dextrose (Dextrose 50% Inj) 0 ml IV STAT PRN; Protocol PRN Reason: Hypoglycemia Protocol Dextrose (Glutose 15) 0 gm PO ONCE PRN; Protocol PRN Reason: Hypoglycemia Protocol Gabapentin (Neurontin) 100 mg PO HS [facility] Last Admin: 09/23/17 21:28 Dose: 100 mg Glipizide (Glucotrol) 10 mg PO ACB [facility] Last Admin: 09/24/17 08:28 Dose: 10 mg Glucagon (Glucagen Diagnostic Kit) 0 mg IM STAT PRN; Protocol PRN Reason: Hypoglycemia Protocol Heparin Sodium (Porcine) (Heparin) 5,000 units SC Q12 [facility] Last Admin: 09/23/17 21:29 Dose: 5,000 units Home Med (Patient's Own Medication) 1 tab PO DAILY [facility] Last Admin: 09/23/17 09:22 Dose: 1 tab Home Med (Patient's Own Medication) 1 tab PO DAILY [facility] Last Admin: 09/23/17 09:22 Dose: 1 tab Ceftriaxone Sodium 1 gm/ (Sodium Chloride) 100 mls @ 100 mls/hr IVPB Q24H [facility] PRN Reason: Protocol Last Admin: 09/23/17 09:46 Dose: 100 mls/hr Dextrose (Dextrose 5% In Water 1000 Ml) 1,000 mls @ 0 mls/hr IV .Q0M PRN; Protocol; Per Protocol PRN Reason: Hypoglycemia Protocol Vancomycin/Sodium Chloride (Vancomycin 1 Gm/Ns 200 Ml) 1 gm in 200 mls @ 133.333 mls/hr IVPB MWF [facility] PRN Reason: Protocol Stop: 09/26/17 09:01 Last Admin: 09/21/17 12:56 Dose: 133.333 mls/hr Insulin Human Regular (Novolin R) 0 unit SC ACHS [facility] PRN Reason: Protocol Last Admin: 09/24/17 08:29 Dose: Not Given Paroxetine HCl (Paxil) 10 mg PO DAILY [facility] Last Admin: 09/23/17 09:42 Dose: 10 mg Rosuvastatin Calcium (Crestor) 10 mg PO HS [facility] Last Admin: 09/23/17 21:28 Dose: 10 mg Saccharomyces Boulardii (Florastor) 250 mg PO BID [facility] Last Admin: 09/23/17 18:17 Dose: 250 mg Sacubitril/Valsartan (Entresto 24 Mg-26 Mg) 1 tab PO BID [facility] Silver Sulfadiazine (Silvadene 1% 20 Gm) 0 ea TOP DAILY [facility] Last Admin: 09/23/17 09:44 Dose: 1 applic Tamsulosin HCl (Flomax) 0.4 mg PO DAILY [facility] Last Admin: 09/23/17 09:20 Dose: 0.4 mg - Labs Labs: 09/24/17 07:12 09/24/17 07:12 - Constitutional Appears: No Acute Distress, Chronically Ill - Head Exam Head Exam: NORMAL INSPECTION, NORMOCEPHALIC - Eye Exam Eye Exam: Normal appearance, PERRL - ENT Exam ENT Exam: Mucous Membranes Moist, Normal Exam - Neck Exam Neck Exam: Full ROM, Normal Inspection - Respiratory Exam Respiratory Exam: Clear to Ausculation Bilateral, NORMAL BREATHING PATTERN - Cardiovascular Exam Cardiovascular Exam: REGULAR RHYTHM, RRR - GI/Abdominal Exam GI & Abdominal Exam: Soft, Normal Bowel Sounds - Extremities Exam Extremities Exam: Normal Inspection (b/l feet in dressing) - Neurological Exam Neurological Exam: Alert, Awake, Oriented x3 - Psychiatric Exam Psychiatric exam: Normal Affect, Normal Mood Assessment and Plan (1) Burn, foot, second degree Status: Acute (2) CAD (coronary artery disease) Status: Acute (3) Cellulitis of both feet Status: Acute (4) End stage renal disease Status: Acute (5) PVD (peripheral vascular disease) Status: Acute (6) Type 2 diabetes mellitus with diabetic nephropathy Status: Acute - Assessment and Plan (Free Text) Assessment: maintain hd mwf wound care
[2017-09-24] MEDS: Vancomycin 1 gm/NS 200 ml 1 GM/200 ML BAG IVPB SCH (15:32)
--- NOTE | 2017-09-24 15:35 | CP.PCM.PN ---
Subjective - Date & Time of Evaluation Date of Evaluation: 09/24/17 Time of Evaluation: 15:33 - Subjective Subjective: recommend cta and revascularization if foot does not improve patient is refusing cta. wtc unable to give realistic prognosis without additional imaging Objective - Vital Signs/Intake and Output Vital Signs (last 24 hours): Temp Pulse Resp BP Pulse Ox 97.6 F 84 21 127/86 100 09/24/17 12:50 09/24/17 12:50 09/24/17 12:50 09/24/17 12:50 09/24/17 12:50 Intake and Output: 09/24/17 09/24/17 06:59 18:59 Intake Total 600 100 Balance 600 100 - Medications Medications: Current Medications Aspirin (Aspirin Chewable) 81 mg PO DAILY [facility] Last Admin: 09/24/17 13:58 Dose: 81 mg Calcium Acetate (Phoslo) 667 mg PO BIDCC [facility] Last Admin: 09/24/17 08:28 Dose: 667 mg Carvedilol (Coreg) 3.125 mg PO BID [facility] Last Admin: 09/24/17 10:41 Dose: Not Given Clopidogrel Bisulfate (Plavix) 75 mg PO DAILY [facility] Last Admin: 09/24/17 14:00 Dose: 75 mg Dextrose (Dextrose 50% Inj) 0 ml IV STAT PRN; Protocol PRN Reason: Hypoglycemia Protocol Dextrose (Glutose 15) 0 gm PO ONCE PRN; Protocol PRN Reason: Hypoglycemia Protocol Gabapentin (Neurontin) 100 mg PO HS [facility] Last Admin: 09/23/17 21:28 Dose: 100 mg Glipizide (Glucotrol) 10 mg PO ACB [facility] Last Admin: 09/24/17 08:28 Dose: 10 mg Glucagon (Glucagen Diagnostic Kit) 0 mg IM STAT PRN; Protocol PRN Reason: Hypoglycemia Protocol Heparin Sodium (Porcine) (Heparin) 5,000 units SC Q12 [facility] Last Admin: 09/24/17 10:41 Dose: Not Given Heparin Sodium (Porcine) (Heparin) 4,600 units IVP MWF [facility] Last Admin: 09/24/17 11:59 Dose: 4,600 units Home Med (Patient's Own Medication) 1 tab PO DAILY [facility] Last Admin: 09/24/17 13:57 Dose: 1 tab Home Med (Patient's Own Medication) 1 tab PO DAILY [facility] Last Admin: 09/24/17 13:58 Dose: 1 tab Ceftriaxone Sodium 1 gm/ (Sodium Chloride) 100 mls @ 100 mls/hr IVPB Q24H [facility] PRN Reason: Protocol Last Admin: 09/24/17 13:53 Dose: 100 mls/hr Dextrose (Dextrose 5% In Water 1000 Ml) 1,000 mls @ 0 mls/hr IV .Q0M PRN; Protocol; Per Protocol PRN Reason: Hypoglycemia Protocol Vancomycin/Sodium Chloride (Vancomycin 1 Gm/Ns 200 Ml) 1 gm in 200 mls @ 133.333 mls/hr IVPB MWF [facility] PRN Reason: Protocol Stop: 09/26/17 09:01 Last Admin: 09/21/17 12:56 Dose: 133.333 mls/hr Insulin Human Regular (Novolin R) 0 unit SC ACHS [facility] PRN Reason: Protocol Last Admin: 09/24/17 13:35 Dose: Not Given Paroxetine HCl (Paxil) 10 mg PO DAILY [facility] Last Admin: 09/24/17 14:00 Dose: 10 mg Rosuvastatin Calcium (Crestor) 10 mg PO HS [facility] Last Admin: 09/23/17 21:28 Dose: 10 mg Saccharomyces Boulardii (Florastor) 250 mg PO BID [facility] Last Admin: 09/24/17 10:41 Dose: Not Given Sacubitril/Valsartan (Entresto 24 Mg-26 Mg) 1 tab PO BID [facility] Silver Sulfadiazine (Silvadene 1% 20 Gm) 0 ea TOP DAILY [facility] Last Admin: 09/24/17 10:42 Dose: Not Given Tamsulosin HCl (Flomax) 0.4 mg PO DAILY [facility] Last Admin: 09/24/17 13:59 Dose: 0.4 mg - Labs Labs: 09/24/17 07:12 09/24/17 07:12
[2017-09-24 16:05] VITALS: RESP 20
--- NOTE | 2017-09-24 18:16 | CP.PCM.PN ---
Subjective - Date & Time of Evaluation Date of Evaluation: 09/24/17 Time of Evaluation: 14:00 - Subjective Subjective: Podiatry Progress Note - Dr. Pierce 62 year old male patient seen and examined at bedside for bilateral foot burn wounds and cellulitis. No acute events overnight. Patient reports minimal pain in his feet today. No new pedal complaints. Denies N/V/F/D/C/SOB/TRAYLOR/dizziness. Of note, patient refusing CTA. Objective - Vital Signs/Intake and Output Vital Signs (last 24 hours): Temp Pulse Resp BP Pulse Ox 97.8 F 85 20 140/77 98 09/24/17 16:03 09/24/17 16:03 09/24/17 16:03 09/24/17 16:03 09/24/17 16:03 Intake and Output: 09/24/17 09/24/17 06:59 18:59 Intake Total 600 100 Balance 600 100 - Medications Medications: Current Medications Aspirin (Aspirin Chewable) 81 mg PO DAILY [facility] Last Admin: 09/24/17 13:58 Dose: 81 mg Calcium Acetate (Phoslo) 667 mg PO BIDCC [facility] Last Admin: 09/24/17 17:53 Dose: 667 mg Carvedilol (Coreg) 3.125 mg PO BID [facility] Last Admin: 09/24/17 17:53 Dose: 3.125 mg Clopidogrel Bisulfate (Plavix) 75 mg PO DAILY [facility] Last Admin: 09/24/17 14:00 Dose: 75 mg Dextrose (Dextrose 50% Inj) 0 ml IV STAT PRN; Protocol PRN Reason: Hypoglycemia Protocol Dextrose (Glutose 15) 0 gm PO ONCE PRN; Protocol PRN Reason: Hypoglycemia Protocol Gabapentin (Neurontin) 100 mg PO HS [facility] Last Admin: 09/23/17 21:28 Dose: 100 mg Glipizide (Glucotrol) 10 mg PO ACB [facility] Last Admin: 09/24/17 08:28 Dose: 10 mg Glucagon (Glucagen Diagnostic Kit) 0 mg IM STAT PRN; Protocol PRN Reason: Hypoglycemia Protocol Heparin Sodium (Porcine) (Heparin) 5,000 units SC Q12 [facility] Last Admin: 09/24/17 10:41 Dose: Not Given Heparin Sodium (Porcine) (Heparin) 4,600 units IVP MWF [facility] Last Admin: 09/24/17 11:59 Dose: 4,600 units Home Med (Patient's Own Medication) 1 tab PO DAILY [facility] Last Admin: 09/24/17 13:57 Dose: 1 tab Home Med (Patient's Own Medication) 1 tab PO DAILY [facility] Last Admin: 09/24/17 13:58 Dose: 1 tab Ceftriaxone Sodium 1 gm/ (Sodium Chloride) 100 mls @ 100 mls/hr IVPB Q24H [facility] PRN Reason: Protocol Last Admin: 09/24/17 13:53 Dose: 100 mls/hr Dextrose (Dextrose 5% In Water 1000 Ml) 1,000 mls @ 0 mls/hr IV .Q0M PRN; Protocol; Per Protocol PRN Reason: Hypoglycemia Protocol Vancomycin/Sodium Chloride (Vancomycin 1 Gm/Ns 200 Ml) 1 gm in 200 mls @ 133.333 mls/hr IVPB MWF [facility] PRN Reason: Protocol Stop: 09/26/17 09:01 Last Admin: 09/24/17 15:32 Dose: 133.333 mls/hr Insulin Human Regular (Novolin R) 0 unit SC ACHS [facility] PRN Reason: Protocol Last Admin: 09/24/17 13:35 Dose: Not Given Paroxetine HCl (Paxil) 10 mg PO DAILY [facility] Last Admin: 09/24/17 14:00 Dose: 10 mg Rosuvastatin Calcium (Crestor) 10 mg PO HS [facility] Last Admin: 09/23/17 21:28 Dose: 10 mg Saccharomyces Boulardii (Florastor) 250 mg PO BID [facility] Last Admin: 09/24/17 17:53 Dose: 250 mg Sacubitril/Valsartan (Entresto 24 Mg-26 Mg) 1 tab PO BID [facility] Silver Sulfadiazine (Silvadene 1% 20 Gm) 0 ea TOP DAILY [facility] Last Admin: 09/24/17 10:42 Dose: Not Given Tamsulosin HCl (Flomax) 0.4 mg PO DAILY [facility] Last Admin: 09/24/17 13:59 Dose: 0.4 mg - Labs Labs: 09/24/17 07:12 09/24/17 07:12 - Constitutional Appears: Well, Non-toxic, No Acute Distress - Extremities Exam Additional comments: Bilateral LE exam VASC: DP/PT pulses weakly palpable 1/4 b/l, Cap refill time: < 3 sec to all digits, temperature gradient warm to warm b/l, no edema noted. DERM: Superficial epidermal lysis with healthy granular tissue on the wound bed noted on the plantar forefoot sub 1st-5th met heads b/l, erythema which extends from the dorsum of the foot proximally towards the knee joint with streaks (R>L ) - erythema resolving to the level of ankle on the right, no active drainage, no malodor, no probe to bone, no tunneling or tracking NEURO: Protective sensation mildly diminished ORTHO: no pain on palpation of the wounds - Neurological Exam Neurological Exam: Alert, Awake, Oriented x3 - Psychiatric Exam Psychiatric exam: Normal Affect, Normal Mood Assessment and Plan - Assessment and Plan (Free Text) Assessment: 62M with 1) second degree burn wound plantar foot b/l 2) cellulitis 3) PVD Plan: Patient seen and evaluated Discussed with attending, Dr. Pirece Bilateral foot XR reviewed (09/19/17): Unremarkable Bilateral LE ANUSHA/PVR reviewed: Moderately decreased perfusion of both lower extremities, noted at the superficial femoral, popliteal, tibial, and distal small artery levels. Wound cultures: Enterobacter asburiae, Enterococcus faecalis Continue abx per ID - Ceftriaxone, Vancomycin Continue local wound care: TESS Hsu Patient refusing CTA per vascular - unable to give realistic prognosis without additional imaging Podiatry will follow
[2017-09-25 07:36] LABS: BASO # 0.1 K/uL (0.0-0.2); BASO % 0.8 % (0.0-2.0); EOS # 0.2 K/uL (0.0-0.7); EOS % 3.4 % (0.0-4.0); HEMOGLOBIN 10.3 g/dL (12.0-18.0); LYMPH # 0.8 K/uL (1.0-4.3); LYMPH % 12.5 % (20.0-40.0); MEAN CELL VOLUME 85.3 fL (80.0-94.0); MEAN CORPUSCULAR HEMOGLOBIN 29.6 pg (27.0-31.0); MEAN CORPUSCULAR HGB CONC 34.7 g/dL (33.0-37.0); MEAN PLATELET VOLUME 8.2 fL (7.2-11.7); MONO # 0.8 K/uL (0.0-0.8); MONO % 12.2 % (0.0-10.0); NEUT # 4.4 K/uL (1.8-7.0); NEUT % 71.1 % (50.0-75.0); NRBC % 0.1 % (0.0-2.0); RBC 3.49 Mil/uL (4.40-5.90); RED CELL DISTRIBUTION WIDTH 15.3 % (11.5-14.5); WHITE BLOOD COUNT 6.2 K/uL (4.8-10.8)
[2017-09-25 08:12] VITALS: BP 115/74; PULSE 100; TEMP 98.5; O2SAT 97
[2017-09-25] MEDS: (Novolin R) Insulin Human Regular 100 units/ml vial SC SCH ×4 (08:13→17:17)
[2017-09-25 08:44] LABS: ALB/GLOB RATIO 1.3 (1.0-2.1); ALBUMIN 3.6 g/dL (3.5-5.0); CALCIUM 8.5 mg/dl (8.6-10.4)
[2017-09-25] MEDS: TRADJENTA 5 MG PO SCH (10:14)
[2017-09-25] MEDS: ULORIC 40 MG PO SCH (10:15)
[2017-09-25] MEDS: Saccharomyces Boulardi 250 mg Cap PO SCH ×2 (10:15→17:43)
[2017-09-25] MEDS: Silver Sulfadiazine 1% Cream (20 gm) TOP SCH (10:25)
--- NOTE | 2017-09-25 10:28 | CP.PCM.PN ---
Subjective - Date & Time of Evaluation Date of Evaluation: 09/25/17 Time of Evaluation: 10:21 - Subjective Subjective: Podiatry Progress Note - Dr. Pierce 62M seen and examined this AM for bilateral foot burn wounds + cellulitis. No acute events overnight. Patient reports cramping in his feet. Dressings to bilateral LE remain clean/dry/intact. States he has been ambulating OOB to bathroom without any issues. Denies N/V/F/D/C/SOB/TRAYLOR/dizziness. Objective - Vital Signs/Intake and Output Vital Signs (last 24 hours): Temp Pulse Resp BP Pulse Ox 98.5 F 100 H 20 115/74 97 09/25/17 08:00 09/25/17 08:00 09/25/17 08:00 09/25/17 08:00 09/25/17 08:00 Intake and Output: 09/25/17 09/25/17 06:59 18:59 Intake Total 1080 Balance 1080 - Medications Medications: Current Medications Acetaminophen (Tylenol 325mg Tab) 650 mg PO Q6 PRN PRN Reason: Pain, Mild (1-3) Last Admin: 09/24/17 19:28 Dose: 650 mg Aspirin (Aspirin Chewable) 81 mg PO DAILY [facility] Last Admin: 09/25/17 10:15 Dose: 81 mg Calcium Acetate (Phoslo) 667 mg PO BIDCC [facility] Last Admin: 09/25/17 08:12 Dose: 667 mg Carvedilol (Coreg) 3.125 mg PO BID [facility] Last Admin: 09/24/17 17:53 Dose: 3.125 mg Clopidogrel Bisulfate (Plavix) 75 mg PO DAILY [facility] Last Admin: 09/25/17 10:15 Dose: 75 mg Dextrose (Dextrose 50% Inj) 0 ml IV STAT PRN; Protocol PRN Reason: Hypoglycemia Protocol Dextrose (Glutose 15) 0 gm PO ONCE PRN; Protocol PRN Reason: Hypoglycemia Protocol Gabapentin (Neurontin) 100 mg PO HS [facility] Last Admin: 09/24/17 21:12 Dose: 100 mg Glipizide (Glucotrol) 10 mg PO ACB [facility] Last Admin: 09/25/17 08:12 Dose: 10 mg Glucagon (Glucagen Diagnostic Kit) 0 mg IM STAT PRN; Protocol PRN Reason: Hypoglycemia Protocol Heparin Sodium (Porcine) (Heparin) 4,600 units IVP MWF [facility] Last Admin: 09/24/17 11:59 Dose: 4,600 units Home Med (Patient's Own Medication) 1 tab PO DAILY [facility] Last Admin: 09/25/17 10:15 Dose: 1 tab Home Med (Patient's Own Medication) 1 tab PO DAILY [facility] Last Admin: 09/25/17 10:14 Dose: 1 tab Vancomycin/Sodium Chloride (Vancomycin 1 Gm/Ns 200 Ml) 1 gm in 200 mls @ 133.333 mls/hr IVPB MWF [facility] PRN Reason: Protocol Stop: 09/26/17 09:01 Last Admin: 09/24/17 15:32 Dose: 133.333 mls/hr Insulin Human Regular (Novolin R) 0 unit SC ACHS [facility] PRN Reason: Protocol Last Admin: 09/25/17 08:14 Dose: Not Given Paroxetine HCl (Paxil) 10 mg PO DAILY [facility] Last Admin: 09/25/17 10:15 Dose: 10 mg Rosuvastatin Calcium (Crestor) 10 mg PO HS [facility] Last Admin: 09/24/17 21:12 Dose: 10 mg Saccharomyces Boulardii (Florastor) 250 mg PO BID [facility] Last Admin: 09/25/17 10:15 Dose: 250 mg Sacubitril/Valsartan (Entresto 24 Mg-26 Mg) 1 tab PO BID [facility] Silver Sulfadiazine (Silvadene 1% 20 Gm) 0 ea TOP DAILY [facility] Last Admin: 09/24/17 10:42 Dose: Not Given Tamsulosin HCl (Flomax) 0.4 mg PO DAILY [facility] Last Admin: 09/24/17 13:59 Dose: 0.4 mg - Labs Labs: 09/25/17 07:10 09/25/17 07:10 - Constitutional Appears: Well, Non-toxic, No Acute Distress - Extremities Exam Additional comments: Bilateral LE exam VASC: DP/PT pulses weakly palpable 1/4 b/l, Cap refill time: < 3 sec to all digits, temperature gradient warm to warm b/l, no edema noted. DERM: Superficial epidermal lysis with healthy granular tissue on the wound bed noted on the plantar forefoot sub 1st-5th met heads b/l, erythema which extends from the dorsum of the foot proximally towards the knee joint with streaks (R>L ) - erythema resolving to the level of ankle on the right, no active drainage, no malodor, no probe to bone, no tunneling or tracking NEURO: Protective sensation mildly diminished ORTHO: no pain on palpation of the wounds - Neurological Exam Neurological Exam: Alert, Awake, Oriented x3 - Psychiatric Exam Psychiatric exam: Normal Affect, Normal Mood Assessment and Plan - Assessment and Plan (Free Text) Assessment: 62M with 1) second degree burn wound plantar foot b/l 2) cellulitis 3) PVD Plan: Patient seen and evaluated alongside attending, Dr. Pierce Bilateral foot XR reviewed (09/19/17): Unremarkable Bilateral LE ANUSHA/PVR reviewed: Moderately decreased perfusion of both lower extremities, noted at the superficial femoral, popliteal, tibial, and distal small artery levels. Wound cultures: Enterobacter asburiae, Enterococcus faecalis Continue abx per ID - Ceftriaxone, Vancomycin Continue local wound care: Silvadene, xeroform, DSD Surgical shoes ordered - WBAT in surgical shoes Patient refusing CTA per vascular - unable to give realistic prognosis without additional imaging Podiatry will follow
--- NOTE | 2017-09-25 14:14 | CP.PCM.PN ---
Subjective - Date & Time of Evaluation Date of Evaluation: 09/25/17 Time of Evaluation: 09:05 - Subjective Subjective: PGY-[address] De Leon. Patient seen and evaluated at bedside, in no acute distress. Patient complains of mild pain to bilateral feet, but improved from yesterday. Patient is eating well and having bowel movements. Denies fever, chills, chest pain, Shortness of breath, abdominal pain, nausea, vomiting and diarrhea. Objective - Vital Signs/Intake and Output Vital Signs (last 24 hours): Temp Pulse Resp BP Pulse Ox 98.5 F 100 H 20 115/74 97 09/25/17 08:00 09/25/17 08:00 09/25/17 08:00 09/25/17 08:00 09/25/17 08:00 Intake and Output: 09/25/17 09/25/17 06:59 18:59 Intake Total 1080 Balance 1080 - Medications Medications: Current Medications Acetaminophen (Tylenol 325mg Tab) 650 mg PO Q6 PRN PRN Reason: Pain, Mild (1-3) Last Admin: 09/24/17 19:28 Dose: 650 mg Aspirin (Aspirin Chewable) 81 mg PO DAILY [facility] Last Admin: 09/25/17 10:15 Dose: 81 mg Calcium Acetate (Phoslo) 667 mg PO BIDCC [facility] Last Admin: 09/25/17 08:12 Dose: 667 mg Carvedilol (Coreg) 3.125 mg PO BID [facility] Last Admin: 09/25/17 10:27 Dose: 3.125 mg Clopidogrel Bisulfate (Plavix) 75 mg PO DAILY [facility] Last Admin: 09/25/17 10:15 Dose: 75 mg Dextrose (Dextrose 50% Inj) 0 ml IV STAT PRN; Protocol PRN Reason: Hypoglycemia Protocol Dextrose (Glutose 15) 0 gm PO ONCE PRN; Protocol PRN Reason: Hypoglycemia Protocol Gabapentin (Neurontin) 100 mg PO HS [facility] Last Admin: 09/24/17 21:12 Dose: 100 mg Glipizide (Glucotrol) 10 mg PO ACB [facility] Last Admin: 09/25/17 08:12 Dose: 10 mg Glucagon (Glucagen Diagnostic Kit) 0 mg IM STAT PRN; Protocol PRN Reason: Hypoglycemia Protocol Heparin Sodium (Porcine) (Heparin) 4,600 units IVP MWF [facility] Last Admin: 09/24/17 11:59 Dose: 4,600 units Home Med (Patient's Own Medication) 1 tab PO DAILY [facility] Last Admin: 09/25/17 10:15 Dose: 1 tab Home Med (Patient's Own Medication) 1 tab PO DAILY [facility] Last Admin: 09/25/17 10:14 Dose: 1 tab Vancomycin/Sodium Chloride (Vancomycin 1 Gm/Ns 200 Ml) 1 gm in 200 mls @ 133.333 mls/hr IVPB MWF [facility] PRN Reason: Protocol Stop: 09/26/17 09:01 Last Admin: 09/24/17 15:32 Dose: 133.333 mls/hr Insulin Human Regular (Novolin R) 0 unit SC ACHS [facility] PRN Reason: Protocol Last Admin: 09/25/17 12:09 Dose: Not Given Paroxetine HCl (Paxil) 10 mg PO DAILY [facility] Last Admin: 09/25/17 10:15 Dose: 10 mg Rosuvastatin Calcium (Crestor) 10 mg PO HS [facility] Last Admin: 09/24/17 21:12 Dose: 10 mg Saccharomyces Boulardii (Florastor) 250 mg PO BID [facility] Last Admin: 09/25/17 10:15 Dose: 250 mg Sacubitril/Valsartan (Entresto 24 Mg-26 Mg) 1 tab PO BID [facility] Silver Sulfadiazine (Silvadene 1% 20 Gm) 0 ea TOP DAILY [facility] Last Admin: 09/25/17 10:25 Dose: 1 applic Tamsulosin HCl (Flomax) 0.4 mg PO DAILY [facility] Last Admin: 09/25/17 10:27 Dose: 0.4 mg - Labs Labs: 09/25/17 07:10 09/25/17 07:10
--- NOTE | 2017-09-25 17:44 | CP.PCM.PN ---
Subjective - Date & Time of Evaluation Date of Evaluation: 09/25/17 Time of Evaluation: 17:42 - Subjective Subjective: seen and examined comfortable in bed no complaints no f/c/sob/cp/n/v/d Objective - Vital Signs/Intake and Output Vital Signs (last 24 hours): Temp Pulse Resp BP Pulse Ox 98.5 F 100 H 20 115/74 97 09/25/17 08:00 09/25/17 08:00 09/25/17 08:00 09/25/17 08:00 09/25/17 08:00 Intake and Output: 09/25/17 09/25/17 06:59 18:59 Intake Total 1080 500 Balance 1080 500 - Medications Medications: Current Medications Acetaminophen (Tylenol 325mg Tab) 650 mg PO Q6 PRN PRN Reason: Pain, Mild (1-3) Last Admin: 09/24/17 19:28 Dose: 650 mg Aspirin (Aspirin Chewable) 81 mg PO DAILY [facility] Last Admin: 09/25/17 10:15 Dose: 81 mg Calcium Acetate (Phoslo) 667 mg PO BIDCC [facility] Last Admin: 09/25/17 08:12 Dose: 667 mg Carvedilol (Coreg) 3.125 mg PO BID [facility] Last Admin: 09/25/17 10:27 Dose: 3.125 mg Clopidogrel Bisulfate (Plavix) 75 mg PO DAILY [facility] Last Admin: 09/25/17 10:15 Dose: 75 mg Dextrose (Dextrose 50% Inj) 0 ml IV STAT PRN; Protocol PRN Reason: Hypoglycemia Protocol Dextrose (Glutose 15) 0 gm PO ONCE PRN; Protocol PRN Reason: Hypoglycemia Protocol Gabapentin (Neurontin) 100 mg PO HS [facility] Last Admin: 09/24/17 21:12 Dose: 100 mg Glipizide (Glucotrol) 10 mg PO ACB [facility] Last Admin: 09/25/17 08:12 Dose: 10 mg Glucagon (Glucagen Diagnostic Kit) 0 mg IM STAT PRN; Protocol PRN Reason: Hypoglycemia Protocol Heparin Sodium (Porcine) (Heparin) 4,600 units IVP MWF [facility] Last Admin: 09/24/17 11:59 Dose: 4,600 units Home Med (Patient's Own Medication) 1 tab PO DAILY [facility] Last Admin: 09/25/17 10:15 Dose: 1 tab Home Med (Patient's Own Medication) 1 tab PO DAILY [facility] Last Admin: 09/25/17 10:14 Dose: 1 tab Vancomycin/Sodium Chloride (Vancomycin 1 Gm/Ns 200 Ml) 1 gm in 200 mls @ 133.333 mls/hr IVPB MWF [facility] PRN Reason: Protocol Stop: 09/26/17 09:01 Last Admin: 09/24/17 15:32 Dose: 133.333 mls/hr Insulin Human Regular (Novolin R) 0 unit SC ACHS [facility] PRN Reason: Protocol Last Admin: 09/25/17 17:17 Dose: Not Given Paroxetine HCl (Paxil) 10 mg PO DAILY [facility] Last Admin: 09/25/17 10:15 Dose: 10 mg Rosuvastatin Calcium (Crestor) 10 mg PO HS [facility] Last Admin: 09/24/17 21:12 Dose: 10 mg Saccharomyces Boulardii (Florastor) 250 mg PO BID [facility] Last Admin: 09/25/17 10:15 Dose: 250 mg Sacubitril/Valsartan (Entresto 24 Mg-26 Mg) 1 tab PO BID [facility] Silver Sulfadiazine (Silvadene 1% 20 Gm) 0 ea TOP DAILY [facility] Last Admin: 09/25/17 10:25 Dose: 1 applic Tamsulosin HCl (Flomax) 0.4 mg PO DAILY [facility] Last Admin: 09/25/17 10:27 Dose: 0.4 mg - Labs Labs: 09/25/17 07:10 09/25/17 07:10 - Constitutional Appears: No Acute Distress - Head Exam Head Exam: NORMAL INSPECTION, NORMOCEPHALIC - Eye Exam Eye Exam: Normal appearance Pupil Exam: PERRL - ENT Exam ENT Exam: Mucous Membranes Moist, Normal Exam - Neck Exam Neck Exam: Normal Inspection - Respiratory Exam Respiratory Exam: Clear to Ausculation Bilateral, NORMAL BREATHING PATTERN - Cardiovascular Exam Cardiovascular Exam: REGULAR RHYTHM, RRR - GI/Abdominal Exam GI & Abdominal Exam: Distended, Soft, Normal Bowel Sounds - Extremities Exam Extremities Exam: Full ROM, Normal Inspection Additional comments: b/l feet in dressing - Back Exam Back Exam: NORMAL INSPECTION - Neurological Exam Neurological Exam: Alert, CN II-XII Intact - Psychiatric Exam Psychiatric exam: Normal Affect - Skin Skin Exam: Dry, Intact Assessment and Plan (1) Burn, foot, second degree Status: Acute (2) CAD (coronary artery disease) Status: Acute (3) Cellulitis of both feet Status: Acute (4) End stage renal disease Status: Acute (5) PVD (peripheral vascular disease) Status: Acute (6) Type 2 diabetes mellitus with diabetic nephropathy Status: Acute - Assessment and Plan (Free Text) Assessment: maintain hd mwf wound care / antibiotics
--- NOTE | 2017-09-25 20:01 | CP.PCM.DIS ---
Provider - Provider Date of Admission: 09/19/17 16:31 Attending physician: Miguel Ram MD Consults: Dr. Pierce, podiatry Dr. Frazier, ID Dr. Hernandez, vascular surgery Dr. Quevedo, nephrology Time Spent in preparation of Discharge (in minutes): 45 Diagnosis - Discharge Diagnosis (1) Third degree burn of foot Status: Acute (2) Cellulitis of both feet Status: Acute (3) Type 2 diabetes mellitus with diabetic nephropathy Status: Acute Hospital Course - Lab Results Lab Results: Micro Results 09/19/17 21:08 Blood Blood Culture - Final NO GROWTH AFTER 5 DAYS 09/19/17 21:08 Blood Gram Stain - Final TEST NOT PERFORMED 09/19/17 16:06 Blood Blood Culture - Final NO GROWTH AFTER 5 DAYS 09/19/17 22:29 Foot - Right Gram Stain - Final 09/19/17 22:29 Foot - Right Wound Culture - Final Enterobacter Asburiae Enterococcus Faecalis 09/19/17 22:29 Foot - Left Gram Stain - Final 09/19/17 22:29 Foot - Left Wound Culture - Final Enterobacter Asburiae Most Recent Lab Values WBC 6.2 K/uL (4.8-10.8) 09/25/17 07:10 RBC 3.49 Mil/uL (4.40-5.90) L 09/25/17 07:10 Hgb 10.3 g/dL (12.0-18.0) L 09/25/17 07:10 Hct 29.8 % (35.0-51.0) L 09/25/17 07:10 MCV 85.3 fL (80.0-94.0) 09/25/17 07:10 MCH 29.6 pg (27.0-31.0) 09/25/17 07:10 MCHC 34.7 g/dL (33.0-37.0) 09/25/17 07:10 RDW 15.3 % (11.5-14.5) H 09/25/17 07:10 Plt Count 118 K/uL (130-400) L 09/25/17 07:10 MPV 8.2 fL (7.2-11.7) 09/25/17 07:10 Neut % (Auto) 71.1 % (50.0-75.0) 09/25/17 07:10 Lymph % (Auto) 12.5 % (20.0-40.0) L 09/25/17 07:10 [place] % (Auto) 12.2 % (0.0-10.0) H 09/25/17 07:10 Eos % (Auto) 3.4 % (0.0-4.0) 09/25/17 07:10 Baso % (Auto) 0.8 % (0.0-2.0) 09/25/17 07:10 Neut # (Auto) 4.4 K/uL (1.8-7.0) 09/25/17 07:10 Lymph # (Auto) 0.8 K/uL (1.0-4.3) L 09/25/17 07:10 [place] # (Auto) 0.8 K/uL (0.0-0.8) 09/25/17 07:10 Eos # (Auto) 0.2 K/uL (0.0-0.7) 09/25/17 07:10 Baso # (Auto) 0.1 K/uL (0.0-0.2) 09/25/17 07:10 Neutrophils % (Manual) 80 % (50-75) H 09/21/17 08:41 Band Neutrophils % 3 % (0-2) H 09/21/17 08:41 Lymphocytes % (Manual) 6 % (20-40) L 09/21/17 08:41 Monocytes % (Manual) 7 % (0-10) 09/21/17 08:41 Eosinophils % (Manual) 3 % (0-4) 09/21/17 08:41 Basophils % (Manual) 1 % (0-2) 09/21/17 08:41 Differential Comment 09/25/17 07:10 Platelet Estimate Normal (NORMAL) 09/21/17 08:41 Hypochromasia (manual) Slight 09/19/17 16:01 Poikilocytosis (manual Slight 09/19/17 16:01 Anisocytosis (manual) Slight 09/21/17 08:41 Ovalocytes Slight 09/21/17 08:41 pO2 34 mm/Hg (30-55) 09/19/17 16:20 VBG pH 7.47 (7.32-7.43) H 09/19/17 16:20 VBG pCO2 42 mmHg (40-60) 09/19/17 16:20 VBG HCO3 29.0 mmol/L 09/19/17 16:20 VBG Total CO2 31.9 mmol/L (22-28) H 09/19/17 16:20 VBG O2 Sat (Calc) 78.3 % (40-65) H 09/19/17 16:20 VBG Base Excess 6.2 mmol/L (0.0-2.0) H 09/19/17 16:20 VBG Potassium 3.4 mmol/L (3.6-5.2) L 09/19/17 16:20 Sodium 137.0 mmol/l (132-148) 09/19/17 16:20 Chloride 102.0 mmol/L (98-107) 09/19/17 16:20 Glucose 236 mg/dl (75-110) H 09/19/17 16:20 Lactate 1.8 mmol/L (0.7-2.1) 09/19/17 16:20 FiO2 21.0 % 09/19/17 16:20 Sodium 143 mmol/L (132-148) 09/25/17 07:10 Potassium 3.6 mmol/L (3.6-5.2) 09/25/17 07:10 Chloride 105 mmol/L (98-107) 09/25/17 07:10 Carbon Dioxide 23 mmol/L (22-30) 09/25/17 07:10 Anion Gap 18 (10-20) 09/25/17 07:10 BUN 39 mg/dL (9-20) H 09/25/17 07:10 Creatinine 3.9 mg/dL (0.8-1.5) H 09/25/17 07:10 Est GFR ( Amer) 19 09/25/17 07:10 Est GFR (Non-Af Amer) 16 09/25/17 07:10 POC Glucose (mg/dL) 169 mg/dL (65-110) H 09/25/17 11:12 Random Glucose 152 mg/dL (75-110) H 09/25/17 07:10 Hemoglobin A1c 6.5 % (4.2-6.5) 09/21/17 08:41 Calcium 8.5 mg/dl (8.6-10.4) L 09/25/17 07:10 Phosphorus 3.5 mg/dL (2.5-4.5) 09/25/17 07:10 Magnesium 2.1 mg/dL (1.6-2.3) 09/25/17 07:10 Total Bilirubin 0.4 mg/dL (0.2-1.3) 09/25/17 07:10 AST 20 U/L (17-59) 09/25/17 07:10 ALT 19 U/L (21-72) L D 09/25/17 07:10 Alkaline Phosphatase 105 U/L (38-126) 09/25/17 07:10 Total Protein 6.5 g/dL (6.3-8.3) 09/25/17 07:10 Albumin 3.6 g/dL (3.5-5.0) 09/25/17 07:10 Globulin 2.9 gm/dL (2.2-3.9) 09/25/17 07:10 Albumin/Globulin Ratio 1.3 (1.0-2.1) 09/25/17 07:10 Venous Blood Potassium 3.4 mmol/L (3.6-5.2) L 09/19/17 16:20 - Hospital Course Hospital Course: On admission: Patient is a 62 year old male with history of diabetes, chronic kidney disease - on hemodialysis MWF, coronary artery disease, hx of DC - 19 years ago at age 43 who presents for redness and pain at the soles of his feet after he burned them while walking on hot pavement at [facility] 8 days ago. He states he was only on the hot pavement for a few steps from the pool to the umbrella. He state that he didn't experience any pain immediately after, however experienced some burning 5 to 6 hours later. Fabiola at bedside stated she saw white skin hanging loose, which she removed and treated with Bacitracin and hydrogen peroxide. Stated that his pain worsened to a 12/10 yesterday and he woke up in the middle of his sleep from the pain. Patient denies prior issues with feet, prior infections on feet. He currently stated that his feet feel painful with redness going up both his legs. Patient received Vancomycin 1g IV while in ED. He denies fevers, chills, diaphoresis, weakness, headache, dizziness, lightheadedness, changes in vision, changes in hearing, sore throat, dysphagia, chest pain, palpitations, shortness of breath, cough, abdominal pain, nausea, vomiting, diarrhea, constipation, dysuria, back pain, recent travel, recent sickness, sick contacts, changes in weight or appetite. Hospital Course: Patient was treated for 3rd degree guerrero and cellulitis to bilateral lower extremities. Patient was followed by Podiatry, Dr. Pierce, for wound care daily and ID, Dr. Frazier, for antibiotic recommendations. Final wound cultures revealed Enterobacter asburiae and Enterococcus fecalis, sensitive to Ceftriaxone and Vancomycin currently. Patient was treated with IV antibiotics Ceftriaxone 1g IV daily and Vancomycin 1g IV MWF on dialysis days. Dr. Hernandez, vascular surgeon was consulted who recommend CTA and revascularization, which patient refused. Patient showed improvement following IV antibiotics and wound care, and was found stable for discharge with outpatient follow up. Imagin09/19/17 Arterial doppler: moderately decreased perfusion of both lower extremities, noted at the superficial femoral, popliteal, tibial and distal small artery levels. (see full report) 09/19/17: Foot XR: no fracture, dislocation, no concern for osteomyelitis. (see full report) Instructions: Patient is stable for discharge as per Dr. De Leon. Patient is to follow up with their primary care doctor, Dr. Ortiz, within one week of discharge. Patient is to follow up with Dr. Pierce within one week of discharge. Patient is to receive 3 more doses of antibiotic Vancomycin with hemodialysis. Please note, patient has not been receiving home medication of Entresto while admitted, patient must follow up with machine heddle cleaner, Dr. Lawton, within one week to discuss whether this medication is to be resumed. Patient is to follow up with Dr. Hernandez, vascular surgery, within one week of discharge if patient is to change his mind about having CT angiogram. Patient is discharged with the following prescriptions: Ciprofloxacin 500mg PO daily for 7 days Vancomycin 1gm in 200ml NS IVPB with hemodialysis x 3 more doses. Gabapentin 100mg PO QHS Florastor 250mg PO BID Patient is to return to Emergency room if he is to experience new or worsening symptoms. This is a brief summary. For complete records review EMR. Discharge Exam - Head Exam Head Exam: ATRAUMATIC, NORMAL INSPECTION, NORMOCEPHALIC - Eye Exam Eye Exam: EOMI, Normal appearance - ENT Exam ENT Exam: Mucous Membranes Moist - Respiratory Exam Respiratory Exam: Clear to PA & Lateral, NORMAL BREATHING PATTERN. absent: Rales, Rhonchi, Wheezes, Respiratory Distress - Cardiovascular Exam Cardiovascular Exam: REGULAR RHYTHM, +S1, +S2 - GI/Abdominal Exam GI & Abdominal Exam: Normal Bowel Sounds, Soft. absent: Distended, Firm, Guarding, Tenderness - Extremities Exam Additional comments: bilateral feet dressed and bandaged. Sensation intact bilaterally. patient able to move all toes. Erythema to bilateral lower extremities greatly reduced from previously demarcated line. No warmth or swelling noted. - Neurological Exam Neurological exam: Alert, Oriented x3 - Psychiatric Exam Psychiatric exam: Normal Mood - Skin Additional comments: Other than noted in extremities exam, normal. Discharge Plan - Discharge Medications Prescriptions: Ciprofloxacin [Cipro] 500 mg PO DAILY #7 tab Gabapentin [Neurontin] 100 mg PO HS #30 cap Saccharomyces Boulardi [Florastor] 250 mg PO BID #60 cap Silver Sulfadiazine 1% 20 gm [Silvadene 1% 20 gm] 0 ea TOP DAILY #1 tube Vancomycin/0.9 % Sod Chloride [Vancomycin 1 G/100Ml-0.9% NaCl] 1 gm IV MWF #3 plast..bag - Follow Up Plan Condition: STABLE Disposition: HOME/ ROUTINE Instructions: Ciprofloxacin (Systemic), Saccharomyces boulardii, Peripheral Vascular (Arterial) Disease (DC), Skin Guerrero (DC), Gabapentin, Silver Sulfadiazine, Vancomycin, Lowering Your Risk of Heart Disease, Cellulitis (DC) Additional Instructions: Patient is stable for discharge as per Dr. De Leon. Patient is to follow up with their primary care doctor, Dr. Ortiz, within one week of discharge. Patient is to follow up with Dr. Pierce within one week of discharge. Patient is to receive 3 more doses of antibiotic Vancomycin with hemodialysis. Please note, patient has not been receiving home medication of Entresto while admitted, patient must follow up with machine heddle cleaner, Dr. Lawton, within one week to discuss whether this medication is to be resumed. Patient is to follow up with Dr. Hernandez, vascular surgery, within one week of discharge if patient is to change his mind about having CT angiogram. Patient is discharged with the following prescriptions: Ciprofloxacin 500mg PO daily for 7 days Vancomycin 1gm in 200ml NS IVPB with hemodialysis x 3 more doses. Gabapentin 100mg PO QHS Patient is to take an over the counter probiotic for 30 after last antibiotic dose. Patient is to return to Emergency room if he is to experience new or worsening symptoms. Referrals: Jeffery Ortiz [Staff Provider] - Oscar Pierce DPM [Staff Provider] -
== END 2017-09-25 18:45 | disposition home or self-care (01) | DRG 934 ==
LOC: C.ER 15:13 → C.9E 16:31 → C.3T 19:39
PROVIDERS: ADMIT Family Medicine; ATTEND Family Medicine
DX: T25.321A Burn of third degree of right foot, initial encounter (principal); N18.6 End stage renal disease; L03.116 Cellulitis of left lower limb; T31.11 Burns involving 10-19% of body surface with 10-19% third degree burns; I12.0 Hypertensive chronic kidney disease with stage 5 chronic kidney disease or end stage renal disease; L03.115 Cellulitis of right lower limb; T25.322A Burn of third degree of left foot, initial encounter; E11.22 Type 2 diabetes mellitus with diabetic chronic kidney disease; D63.1 Anemia in chronic kidney disease; E11.21 Type 2 diabetes mellitus with diabetic nephropathy; E11.51 Type 2 diabetes mellitus with diabetic peripheral angiopathy without gangrene; X19.XXXA Contact with other heat and hot substances, initial encounter; I25.10 Atherosclerotic heart disease of native coronary artery without angina pectoris; F17.210 Nicotine dependence, cigarettes, uncomplicated; E78.5 Hyperlipidemia, unspecified; I25.2 Old myocardial infarction; Z95.1 Presence of aortocoronary bypass graft; Z99.2 Dependence on renal dialysis; Z79.4 Long term (current) use of insulin

== ENCOUNTER 2018-03-28 07:12 | Day surgery (SDC) | payer BC ==
[2018-03-28 08:21] LABS: CALCIUM 9.4 mg/dl (8.6-10.4)
[2018-03-28] MEDS ORDERED: Lactated Ringer's 1,000 ML IV ONE ×2 (09:38)
[2018-03-28] MEDS ORDERED: Propofol 10 mg/ml Inj (20 ML) ONE (09:41)
[2018-03-28 10:43] VITALS: TEMP 98.2; O2SAT 98
[2018-03-28 11:46] VITALS: BP 106/68; PULSE 86; RESP 18
== END 2018-03-28 12:10 | disposition home or self-care (01) ==
LOC: C.ENDO 07:12
PROVIDERS: ATTEND Internal Medicine Gastroenterology
DX: Z12.11 Encounter for screening for malignant neoplasm of colon (principal); D12.7 Benign neoplasm of rectosigmoid junction; D12.3 Benign neoplasm of transverse colon; K57.30 Diverticulosis of large intestine without perforation or abscess without bleeding; K64.8 Other hemorrhoids
CPT/HCPCS: 36415; 45380; 80048; 82948; 88305; J2001; J2704; J7120